=== PATIENT | female | born 1945 | race Caucasian/White ===

== ENCOUNTER 2016-09-29 13:37 | Emergency (ER) | payer MEDICARE, OTHER ==
[~2016-09-29] VITALS: Ht 157.5 cm; Wt 60.0 kg
[~2016-09-29 13:37] MED LIST: ADVA115A PO; ALBU1AER INH; AMIT100 PO; FURO20TA PO; LORA1TAB PO; PRIL40CA PO; ROFL1TAB2 PO; SERT-129 PO; SIMV40 PO; TIOT18I INH; TOPI100 PO; TRAZ50TA4 PO; ZOLP10TA3 PO
[2016-09-29 13:41] VITALS: BP 129/74; PULSE 86; RESP 17; TEMP 98.1; O2SAT 91
[2016-09-29] MEDS ORDERED: oxygen (14:42)
[2016-09-29] MEDS ORDERED: SERT-129 PO (14:42)
[2016-09-29] MEDS ORDERED: ZOLP1SPR PO (14:42)
[2016-09-29] MEDS ORDERED: POTA-243 PO (14:42)
[2016-09-29] MEDS ORDERED: ATOR40TA16 PO (14:42)
[2016-09-29] MEDS ORDERED: ALBUAER3 INH (14:42)
[2016-09-29] MEDS ORDERED: FE FCAP (14:42)
[2016-09-29] MEDS ORDERED: TOPA100T11 PO (14:42)
[2016-09-29] MEDS ORDERED: LORA1TAB12 PO (14:42)
[2016-09-29] MEDS ORDERED: TRAZ50TA12 PO (14:42)
[2016-09-29] MEDS ORDERED: TIOT1AER INH (14:42)
[2016-09-29] MEDS ORDERED: ROFL1TAB2 PO (14:42)
[2016-09-29] MEDS ORDERED: AMIT100T2 PO (14:42)
[2016-09-29] MEDS ORDERED: POTA4.25 PO (14:42)
[2016-09-29] MEDS ORDERED: ALBU.5I NEB (14:42)
[2016-09-29] MEDS ORDERED: LIDOCAINE 1%/EPINEPHrine 1:100,000 SOLN 20 ML VIAL INFIL ONE (14:45)
--- NOTE | 2016-09-29 15:26 | PD ---
HPI Chief Complaint: Fall Time Seen by Provider: 15:22 Travel History International Travel<30 days: No Contact w/Intl Traveler<30days: No Traveled to known affect area: No History of Present Illness HPI 71-year-old female that presents to the ED for evaluation of trip and fall. Patient had trip and fall at her home. Per patient she landed on Tylenol and did not lose consciousness. She does have a history of brain aneurysms but denies taking any blood thinners at this time. She does have a cut to the right forehead as well as to the knees bilaterally. Per patient she only hurts in her knees and her head. She denies any neck pain or back pain. No hip pain. She was able to ambulate to the fall. She states that she is up-to-date with her tetanus within the past 5 years. She denies any chest pain or shortness of breath. No abdominal pain. No nausea or vomiting. No blurry vision or double vision. Denies any weakness. Per patient her pain currently is 5 out of 10. PFSH Past Medical History Asthma: No Blood Disorders: No Anxiety: Yes Depression: Yes Heart Rhythm Problems: No Cancer: No Cardiovascular Problems: Yes (HTN) High Cholesterol: Yes Chemotherapy: No Chest Pain: No Congestive Heart Failure: No COPD: Yes Diabetes: No Endocrine: No Gastrointestinal Disorders: Yes (CURRENTLY ) GERD: Yes Genitourinary: No Hypertension: Yes Immune Disorder: No Implanted Vascular Access Dvce: No Musculoskeletal: Yes Neurologic: Yes (BRAIN ANEURYSM) Psychiatric: No Reproductive: No Respiratory: Yes (O2 3L) Radiation Therapy: No Sleep Apnea: Yes Thyroid Disease: No Tetanus Vaccination: < 5 Years Past Surgical History Abdominal Surgery: Yes (COLONOSCOPY ) Neurologic Surgery: Yes (ANEURYSM CLIP) Other Surgery: Yes (RIGHT BREAST LUMPECTOMY - BENIGN, BUNION ON BILAT FT) Social History Alcohol Use: Yes (SOCIALLY) Tobacco Use: Yes Substance Use: No Allergies-Medications (Allergen,Severity, Reaction): Coded Allergies: No Known Allergies (Unverified , 09/29/16) Reported Meds & Prescriptions Reported Meds & Active Scripts Active Reported Topamax (Topiramate) 100 Mg Tab 100 Mg PO BID Albuterol Neb (Albuterol Sulfate) 2.5 Mg/0.5 Ml Neb 2.5 Mg NEB ONCE Note: The Albuterol Sulfate Inhalation Solution is concentrated and must be diluted. Read complete instructions carefully before using. Daliresp (Roflumilast) 500 Mcg Tab 500 Mcg PO DAILY [oxygen] 3 Liter Stiolto Respimat Inh (Tiotropium-Olodaterol Inh) 2.5-2.5 Mcg/Act Aero 2 Puff INH DAILY Proair Hfa 8.5 GM Inh (Albuterol Sulfate) 90 Mcg/Act Aer 2 Puff INH Q4-6H PRN 108 mcg/actuation Zolpimist (Zolpidem Tartrate) 5 Mg/Act Spr 2.5 Mg PO Trazodone (Trazodone HCl) 50 Mg Tab 50 Mg PO HS Sertraline (Sertraline HCl) 100 Mg Tab 100 Mg PO BID Lorazepam 1 Mg Tab 1 Mg PO DAILY PRN Potassium Citrate ER 15 Meq Tab 10 Meq PO BID Klor-Con 10 (Potassium Chloride) 10 Meq Tab 10 Meq PO DAILY Integra (Multi-Vit/Iron-B Comp-Vit C) 62.5-62.5-40-3 mg Cap Atorvastatin (Atorvastatin Calcium) 40 Mg Tab 40 Mg PO HS Amitriptyline (Amitriptyline HCl) 100 Mg Tab 100 Mg PO HS Review of Systems Except as stated in HPI: all other systems reviewed are Neg Physical Exam Narrative GENERAL: SKIN: Warm and dry. HEAD: Atraumatic. Normocephalic. Patient has a superficial 2 cm laceration to the right forehead. Minimal bleeding. EYES: Pupils equal and round 4 mm reactive to light and accommodation. No scleral icterus. No injection or drainage. ENT: No nasal bleeding or discharge. Mucous membranes pink and moist. Tongue is midline. No uvula deviation. NECK: Trachea midline. No JVD. CARDIOVASCULAR: Regular rate and rhythm. No murmurs, S3, S4. RESPIRATORY: No accessory muscle use. Clear to auscultation. Breath sounds equal bilaterally. GASTROINTESTINAL: Abdomen soft, non-tender, nondistended. Hepatic and splenic margins not palpable. MUSCULOSKELETAL: Extremities without clubbing, cyanosis, or edema. No obvious deformities. Full range of motion of the upper and lower extremities bilaterally. Patient able to flex and extend both knees bilaterally. Patient does have a skin tear to the right knee as well as a very small abrasion to the left knee. No obvious deformity noted. Minimal swelling noted. Skin there is about 1 cm in diameter in the right knee. Patient has no lumbar, thoracic, cervical spine tenderness to palpation. No ankle or hip pain noted. Full range of motion of the upper extremities with no pain. 2+ pulses bilaterally. NEUROLOGICAL: Awake and alert. No obvious cranial nerve deficits. Motor grossly within normal limits. Five out of 5 muscle strength in the arms and legs. Normal speech. PSYCHIATRIC: Appropriate mood and affect; insight and judgment normal. Data Data Last Documented VS Vital Signs Date Time Temp Pulse Resp B/P Pulse Ox O2 Delivery O2 Flow Rate FiO2 09/29/16 16:18 80 18 130/70 97 Nasal Cannula 3 09/29/16 13:[address] Brain W/O Iv Contrast(Rout) (09/29/16 14:36) Ct Cerv Spine W/O Contrast (09/29/16 14:36) Ct Facial Bones W/O Iv Cont (09/29/16 14:36) Knee, Complete (4vws) (09/29/16 14:36) Ice/Cold Pack (09/29/16 14:36) Wound Care (09/29/16 14:36) Lidocai-Epi 1%-1:100,000 Inj (Xylocaine- (09/29/16 14:45) Knee, Complete (4vws) (09/29/16 ) MDM Medical Decision Making Medical Screen Exam Complete: Yes Emergency Medical Condition: Yes Medical Record Reviewed: Yes Interpretation(s) Last Impressions Maxillofacial CT 09/29/16 1436 Signed Impressions: Service Date/Time: Thursday, September 29, 2016 15:49 - CONCLUSION: Negative for fracture, evidence for previous aneurysm clipping on the right.. Matthew Basilio MD FACR Knee X-Ray 09/29/16 1436 Signed Impressions: Service Date/Time: Thursday, September 29, 2016 14:58 - CONCLUSION: Mild arthropathy without evidence of acute bony abnormality. Possible small joint effusion. Elver Parham MD Cervical Spine CT 09/29/16 1436 Signed Impressions: Service Date/Time: Thursday, September 29, 2016 15:49 - CONCLUSION: Degenerative changes with spinal stenosis worse at C6-C7. There is no fracture. Matthew Basilio MD FACR Knee X-Ray 09/29/16 0000 Signed Impressions: Service Date/Time: Thursday, September 29, 2016 14:54 - CONCLUSION: Total knee replacement. No evidence of acute process. Elver Parham MD CT head negative other than for aneurysm clippings Differential Diagnosis Head injury versus laceration versus fracture versus contusion versus skin tear Narrative Course 71-year-old female that presents to the ED for evaluation of head injury. Patient was properly examined and was found to have signs and symptoms consistent with appears to be head injury and laceration. imaging ordered. After explained procedure to the patient and she agreed to it laceration was repaired as stated in procedure note. Told to get sutures removed in 7 days. Wound care was endorsed. Imaging showed no sign of acute disease other than possible joint effusion on the right knee but otherwise unremarkable. This was discussed with the attending who agrees with plan. Patient was sent home with head injury precautions. Wound care was endorsed. Patient was given a walker to help ambulate as she will likely have some discomfort. Patient was given tramadol for pain. Told to take Tylenol as needed. See ED for worsening symptoms. Procedures Procedure Narrative LACERATION LOCATION: right forehead LENGTH: 2 cm NUMBER OF STITCHES/KALEIGH: 5 sutures REPAIR: The area of the laceration was prepped with Betadine and sterilely draped. The laceration was infiltrated with 1% Xylocaine. The wound was copiously irrigated and explored without evidence of foreign body, tendon injury or neurovascular injury. The wound was closed using 5-0 Prolene. This was a 1 layer repair. A sterile dressing was applied. The patient was advised to keep the dressing clean and dry. Patient tolerated the procedure well. Diagnosis Primary Impression: Head injury, acute Qualified Code: S09.90XA - Head injury, acute, initial encounter Additional Impression: Laceration Patient Instructions: General Instructions Additional Instructions: Tylenol for pain as needed. Apply ice to the areas of pain as needed. Wound care daily with soap and water. You can apply bandaid if needed. Neosporyn or OTC antibiotic ointment to area as needed twice a day for at least 2 weeks to help with scarring and prevent infection. Meoderma OTC for scarring if needed. Avoid sun exposure for 2 months as the sun could make scar darker and more noticeable. Get sutures removed in 5-7 days. See ED if worst. Med/Other Pt SpecificInfo: Prescription(s) given Disposition: 01 DISCHARGE HOME Condition: Stable Mark Whitfield Sep 29, 2016 15:26
--- NOTE | 2016-09-29 15:53 | RADRPT ---
EXAM DATE/TIME: 09/29/2016 14:54 [facility] COMPARISON: No previous studies available for comparison. INDICATIONS : Left knee pain after falling today. MEDICAL HISTORY : Hypertension. Chronic obstructive pulmonary disease. Smoker. SURGICAL HISTORY : Total knee replacement, left. ENCOUNTER: Initial ACUITY: 1 day PAIN SCORE: 2/10 LOCATION: Left entire knee. FINDINGS: 4 views of the left knee demonstrates a total joint replacement. Components appear to be well-seated and satisfactory line. Bony structures are intact. There is no significant soft tissue swelling. CONCLUSION: Total knee replacement. No evidence of acute process. Elver Parham MD on September 29, 2016 at 15:50 Board Certified Radiologist. This report was verified electronically.
--- NOTE | 2016-09-29 15:54 | RADRPT ---
EXAM DATE/TIME: 09/29/2016 14:58 [facility] COMPARISON: No previous studies available for comparison. INDICATIONS : Right knee pain after falling today. MEDICAL HISTORY : Hypertension. Chronic obstructive pulmonary disease. Smoker. SURGICAL HISTORY : None. ENCOUNTER: Initial ACUITY: 1 day PAIN SCORE: 7/10 LOCATION: Right entire knee. FINDINGS: Four view examination of the right knee demonstrates mild to moderate arthropathy involving the media l joint compartment and patellofemoral joint. There is no evidence of fracture or dislocation. Minimal increased density is seen in the suprapatellar bursa. CONCLUSION: Mild arthropathy without evidence of acute bony abnormality. Possible small joint effusion. Elver Parham MD on September 29, 2016 at 15:51 Board Certified Radiologist. This report was verified electronically.
--- NOTE | 2016-09-29 16:06 | RADRPT ---
EXAM DATE/TIME: 09/29/2016 15:49 [facility] COMPARISON: No previous studies available for comparison. INDICATIONS : Fall, laceration to head. RADIATION DOSE: 33.57 CTDIvol (mGy) MEDICAL HISTORY : Hypertension. Aneurysm, intracranial. SURGICAL HISTORY : Intracranial aneurysm repair. ENCOUNTER: Initial ACUITY: 1 day PAIN SCALE: 3/10 LOCATION: Cranial TECHNIQUE: Multiple contiguous axial images were obtained of the head. Using automated exposure control and adjustment of the mA and/or kV according to patient size, radiation dose was kept as low as reasonably achievable to obtain optimal diagnostic quality images. FINDINGS: The patient is status post aneurysm clipping on the right. There is no subarachno id hemorrhage. There is no evidence for infarction. There is no parenchymal hemorrhage. Posterior fossa shows minimal vascular calcifications. CONCLUSION: Evidence for previous aneurysm clipping on the right otherwise negative. Matthew Basilio MD FACR on September 29, 2016 at 16:02 Board Certified Radiologist. This report was verified electronically.
--- NOTE | 2016-09-29 16:08 | RADRPT ---
EXAM DATE/TIME: 09/29/2016 15:49 [facility] COMPARISON: No previous studies available for comparison. INDICATIONS : Fall, laceration to head. RADIATION DOSE: 17.57 CTDIvol (mGy) MEDICAL HISTORY : Hypertension. Aneurysm, intracranial. SURGICAL HISTORY : Intracranial aneurysm repair. ENCOUNTER: Initial ACUITY: 1 day PAIN SCALE: 3/10 LOCATION: neck TECHNIQUE: Volumetric scanning of the cervical spine was performed. Multiplanar reconstructions i n the sagittal, coronal and oblique axial planes were performed. Using automated exposure control a nd adjustment of the mA and/or kV according to patient size, radiation dose was kept as low as reason ably achievable to obtain optimal diagnostic quality images. FINDINGS: VERTEBRAE: Normal vertebral body height. ALIGNMENT: No evidence of subluxation. C2-C3: The bony spinal canal is normal in size. No evidence of disc bulge or herniation. The neura l foramina are bilaterally patent. C3-C4: The bony spinal canal is normal in size. No evidence of disc bulge or herniation. The neura l foramina are bilaterally patent. C4-C5: Mild uncinate ridging is present without spinal stenosis or fracture. C5-C6: Mild uncinate ridging is present minimal facet disease without neural foramina encroachment. C6-C7: Moderately uncinate ridging is present with moderate left-sided neuroforaminal encroachment an d spinal stenosis. C7-T1: The bony spinal canal is normal in size. No evidence of disc bulge or herniation. The neura l foramina are bilaterally patent. CONCLUSION: Degenerative changes with spinal stenosis worse at C6-C7. There is no fracture. Matthew Basilio MD FACR on September 29, 2016 at 16:03 Board Certified Radiologist. This report was verified electronically.
--- NOTE | 2016-09-29 16:11 | RADRPT ---
EXAM DATE/TIME: 09/29/2016 15:49 [facility] COMPARISON: No previous studies available for comparison. INDICATIONS : Fall, laceration to head. RADIATION DOSE: 60.90 CTDIvol (mGy) MEDICAL HISTORY : Hypertension. Aneurysm, intracranial. SURGICAL HISTORY : Intracranial aneurysm repair. ENCOUNTER: Initial ACUITY: 1 day PAIN SCORE: 2/10 LOCATION: facial TECHNIQUE: Volumetric scanning of the facial bones was performed. Using automated exposure control and adjustme nt of the mA and/or kV according to patient size, radiation dose was kept as low as reasonably achiev able to obtain optimal diagnostic quality images. FINDINGS: ORBITS: The orbital and infraorbital osseous structures are intact. The retroconal structures have a normal configuration. No radiopaque foreign bodies are seen. NASAL BONE: The nasal bone and maxillary spine are intact ZYGOMATIC ARCHES: Symmetric without evidence of fracture. SINUSES: The maxillary, ethmoid and frontal sinuses are intact. Minimal right maxillary sinus disease is evid ent. NASAL CAVITY: The nasal septum is intact and midline. The lacrimal ducts are intact. SOFT TISSUES: No radiopaque foreign bodies seen. No soft-tissue swelling is seen. INTRACRANIAL: No intracranial air seen. CRIBIFORM PLATE: Grossly intact. CONCLUSION: Negative for fracture, evidence for previous aneurysm clipping on the right.. Matthew Basilio MD FACR on September 29, 2016 at 16:07 Board Certified Radiologist. This report was verified electronically.
[2016-09-29 16:18] VITALS: BP 130/70; PULSE 80; RESP 18; O2SAT 97
[2016-09-29] MEDS ORDERED: TRAM50TA PO (16:26)
[2016-09-29] MEDS ORDERED: WALKER WHEELS/F1 MIS ×2 (16:26→16:28)
== END 2016-09-29 17:04 | disposition home or self-care (01) ==
LOC: NEPC 13:37
DX: S01.81XA Laceration without foreign body of other part of head, initial encounter (principal); W01.0XXA Fall on same level from slipping, tripping and stumbling without subsequent striking against object, initial encounter; Y92.009 Unspecified place in unspecified non-institutional (private) residence as the place of occurrence of the external cause; Y99.8 Other external cause status; I10 Essential (primary) hypertension; E78.00 Pure hypercholesterolemia, unspecified; J44.9 Chronic obstructive pulmonary disease, unspecified; K21.9 Gastro-esophageal reflux disease without esophagitis; G47.30 Sleep apnea, unspecified; Z72.0 Tobacco use
CPT/HCPCS: 12011; 70450; 70486; 72125; 73564

== ENCOUNTER 2016-10-10 15:09 | Emergency (ER) | payer MEDICARE, OTHER ==
[~2016-10-10] VITALS: Ht 160 cm; Wt 61.5 kg
[~2016-10-10 15:09] MED LIST changes: -ADVA115A PO; +ALBU.5I NEB; -ALBU1AER INH; +ALBUAER3 INH; -AMIT100 PO; +AMIT100T2 PO; +ATOR40TA16 PO; +FE FCAP; -FURO20TA PO; -LORA1TAB PO; +LORA1TAB12 PO; +POTA-243 PO; +POTA4.25 PO; -PRIL40CA PO; -SIMV40 PO; -TIOT18I INH; +TIOT1AER INH; +TOPA100T11 PO; -TOPI100 PO; +TRAM50TA PO; +TRAZ50TA12 PO; -TRAZ50TA4 PO; +WALKER WHEELS/F1 MIS; -ZOLP10TA3 PO; +ZOLP1SPR PO; +oxygen
[2016-10-10 15:11] VITALS: BP 126/73; PULSE 83; RESP 12; TEMP 97.9; O2SAT 90
--- NOTE | 2016-10-10 15:57 | PD ---
HPI Chief Complaint: Wound/Suture/Staple Re-Check Time Seen by Provider: 15:54 Travel History International Travel<30 days: No Contact w/Intl Traveler<30days: No Traveled to known affect area: No History of Present Illness HPI Patient is a 71-year-old female who presents to the emergency department for stitches removal. Patient has no other complaints at this time. PFSH Past Medical History Asthma: No Blood Disorders: No Anxiety: Yes Depression: Yes Heart Rhythm Problems: No Cancer: No Cardiovascular Problems: Yes (HTN) High Cholesterol: Yes Chemotherapy: No Chest Pain: No Congestive Heart Failure: No COPD: Yes Diabetes: No Endocrine: No Gastrointestinal Disorders: Yes (CURRENTLY ) GERD: Yes Genitourinary: No Hypertension: Yes Immune Disorder: No Implanted Vascular Access Dvce: No Musculoskeletal: Yes Neurologic: Yes (BRAIN ANEURYSM) Psychiatric: No Reproductive: No Respiratory: Yes (O2 3L) Radiation Therapy: No Sleep Apnea: Yes Thyroid Disease: No Past Surgical History Abdominal Surgery: Yes (COLONOSCOPY ) Neurologic Surgery: Yes (ANEURYSM CLIP) Other Surgery: Yes (RIGHT BREAST LUMPECTOMY - BENIGN, BUNION ON BILAT FT) Social History Alcohol Use: Yes (SOCIALLY) Tobacco Use: Yes Substance Use: No Allergies-Medications (Allergen,Severity, Reaction): Coded Allergies: No Known Allergies (Unverified , 10/10/16) Reported Meds & Prescriptions Reported Meds & Active Scripts Active Walker with Front Wheels (Device) 1 Mis Mis 1 Ea .ROUTE DIRECTED Tramadol (Tramadol HCl) 50 Mg Tab 50 Mg PO Q6H PRN Reported Topamax (Topiramate) 100 Mg Tab 100 Mg PO BID Albuterol Neb (Albuterol Sulfate) 2.5 Mg/0.5 Ml Neb 2.5 Mg NEB ONCE Note: The Albuterol Sulfate Inhalation Solution is concentrated and must be diluted. Read complete instructions carefully before using. Daliresp (Roflumilast) 500 Mcg Tab 500 Mcg PO DAILY [oxygen] 3 Liter Stiolto Respimat Inh (Tiotropium-Olodaterol Inh) 2.5-2.5 Mcg/Act Aero 2 Puff INH DAILY Proair Hfa 8.5 GM Inh (Albuterol Sulfate) 90 Mcg/Act Aer 2 Puff INH Q4-6H PRN 108 mcg/actuation Zolpimist (Zolpidem Tartrate) 5 Mg/Act Spr 2.5 Mg PO Trazodone (Trazodone HCl) 50 Mg Tab 50 Mg PO HS Sertraline (Sertraline HCl) 100 Mg Tab 100 Mg PO BID Lorazepam 1 Mg Tab 1 Mg PO DAILY PRN Potassium Citrate ER 15 Meq Tab 10 Meq PO BID Klor-Con 10 (Potassium Chloride) 10 Meq Tab 10 Meq PO DAILY Integra (Multi-Vit/Iron-B Comp-Vit C) 62.5-62.5-40-3 mg Cap Atorvastatin (Atorvastatin Calcium) 40 Mg Tab 40 Mg PO HS Amitriptyline (Amitriptyline HCl) 100 Mg Tab 100 Mg PO HS Review of Systems Except as stated in HPI: all other systems reviewed are Neg Physical Exam Narrative GENERAL: This is a well-nourished, well-developed patient, in no apparent distress. SKIN: No rashes, ecchymoses or lesions. Cool and dry. 5 intact sutures noted to the right forehead. No erythema, induration or exudates noted. Stitches are well approximated with no sign or symptoms of infection. Data Data Last Documented VS Vital Signs Date Time Temp Pulse Resp B/P Pulse Ox O2 Delivery O2 Flow Rate FiO2 10/10/16 15:11 97.9 83 12 126/73 90 Room Air [facility] Medical Decision Making Medical Screen Exam Complete: Yes Emergency Medical Condition: Yes Interpretation(s) Vital Signs Date Time Temp Pulse Resp B/P Pulse Ox O2 Delivery O2 Flow Rate FiO2 10/10/16 15:11 97.9 83 12 126/73 90 Room Air Differential Diagnosis Cellulitis versus abscess versus wound infection versus normal healing versus other Narrative Course Patient is a 71-year-old female who presented to emergency department to have stitches removed. Stitches are placed on 09/29/16. Patient has no complaints at this time. There is no sign or symptoms of infection present. 5 intact sutures were removed from patient's forehead. Patient tolerated well. Patient was advised that she can wash her face with soap and water as she normally would. Patient verbalized understanding of instructions. Patient stable for discharge. Diagnosis Primary Impression: Encounter for removal of sutures Referrals: Primary Care Physician Patient Instructions: General Instructions Additional Instructions: Follow-up with your doctor Return to emergency department for any new or worsening symptoms Med/Other Pt SpecificInfo: No Change to Meds Disposition: 01 DISCHARGE HOME Condition: Stable Genevieve Guzman Oct 10, 2016 15:57
== END 2016-10-10 16:15 | disposition home or self-care (01) ==
LOC: NEPB 15:09
DX: Z48.02 Encounter for removal of sutures (principal)
CPT/HCPCS: 99281

== ENCOUNTER 2017-06-23 14:06 | Inpatient (IN) | payer MEDICARE, OTHER ==
[~2017-06-23] VITALS: Ht 162.6 cm; Wt 59.7 kg
[2017-06-23] VITALS (8 sets, daily range): BP systolic 130–143; BP diastolic 65–76; PULSE 85–100; RESP 18–20; TEMP 98.1–100.2; O2SAT 93–97
[2017-06-23] MEDS ORDERED: SODIUM CHLOR 0.9% 1000 ML INJ 1,000 ML IV ONE ×2 (14:10→18:30)
[2017-06-23] MEDS ORDERED: SODIUM CHLOR 0.9% 1000 ML INJ 800 ML IV ONE (14:10)
[2017-06-23 14:35] LABS: AUTOMATED NEUTROPHIL # 6.4 TH/MM3 (1.8-7.7); BASOPHIL % 0.3 % (0.0-2.0); EOSINOPHIL # 0.1 TH/MM3 (0-0.4); EOSINOPHIL % 1.8 % (0.0-4.0); HEMATOCRIT 42.4 % (35.0-46.0); HEMO FLAGS DIFF FINAL; LYMPH % 11.5 % (9.0-44.0); LYMPHOCYTE # 0.9 TH/MM3 (1.0-4.8); MEAN CELL VOLUME 91.3 FL (80.0-100.0); MEAN CORPUSCULAR HEMOGLOBIN 28.8 PG (27.0-34.0); MEAN CORPUSCULAR HGB CONC 31.6 % (32.0-36.0); MONO % 7.7 % (0.0-8.0); NEUT % 78.7 % (16.0-70.0); PLATELET COUNT 145 TH/MM3 (150-450); RED BLOOD COUNT 4.64 MIL/MM3 (4.00-5.30); RED CELL DISTRIBUTION WIDTH 14.6 % (11.6-17.2); WHITE BLOOD COUNT 8.2 TH/MM3 (4.0-11.0)
--- NOTE | 2017-06-23 14:39 | PD ---
HPI Chief Complaint: Altered Mental Status Time Seen by Provider: 14:10 Travel History International Travel<30 days: No Contact w/Intl Traveler<30days: No Traveled to known affect area: No History of Present Illness HPI This is a 72-year-old female with a history of COPD, hypertension, hyperlipidemia, depression, who presents from home with decreased mental status and reported fever. The patient is awake but confused. She states that she has not been drinking enough fluid. Paramedics report that over the last couple days, she's had decline in her mental status. Home home rehabilitation health nurse who presents today found her to have a temperature of 100.1. There 's been no reported cough or dysuria. The patient's lips are extremely dry. The patient knows the president and the day and her name. She did not know the year or where she was. PFSH Past Medical History Asthma: No Blood Disorders: No Anxiety: Yes Depression: Yes Heart Rhythm Problems: No Cancer: No Cardiovascular Problems: Yes (HTN) High Cholesterol: Yes Chemotherapy: No Chest Pain: No Congestive Heart Failure: No COPD: Yes Diabetes: No Diminished Hearing: No Endocrine: No Gastrointestinal Disorders: Yes (CURRENTLY ) GERD: Yes Genitourinary: No Hypertension: Yes Immune Disorder: No Implanted Vascular Access Dvce: No Musculoskeletal: Yes Neurologic: Yes (BRAIN ANEURYSM) Psychiatric: No Reproductive: No Respiratory: Yes (O2 3L) Radiation Therapy: No Sleep Apnea: Yes Thyroid Disease: No Tetanus Vaccination: > 5 Years Influenza Vaccination: No Past Surgical History Abdominal Surgery: Yes (COLONOSCOPY ) Neurologic Surgery: Yes (ANEURYSM CLIP) Other Surgery: Yes (RIGHT BREAST LUMPECTOMY - BENIGN, BUNION ON BILAT FT) Social History Alcohol Use: Yes (SOCIALLY) Tobacco Use: Yes Substance Use: No Allergies-Medications (Allergen,Severity, Reaction): Coded Allergies: No Known Allergies (Unverified , 06/23/17) Reported Meds & Prescriptions Reported Meds & Active Scripts Active Reported Wellbutrin Xl 24 HR (Bupropion HCl) 150 Mg Tab 150 Mg PO DAILY Zolpidem (Zolpidem Tartrate) 5 Mg Tab 5 Mg PO HS PRN Topamax (Topiramate) 100 Mg Tab 100 Mg PO BID Daliresp (Roflumilast) 500 Mcg Tab 500 Mcg PO DAILY Stiolto Respimat Inh (Tiotropium-Olodaterol Inh) 2.5-2.5 Mcg/Act Aero 2 Puff INH DAILY Proair Hfa 8.5 GM Inh (Albuterol Sulfate) 90 Mcg/Act Aer 2 Puff INH Q4-6H PRN 108 mcg/actuation Sertraline (Sertraline HCl) 100 Mg Tab 200 Mg PO DAILY Lorazepam 1 Mg Tab 0.5 Mg PO BID Atorvastatin (Atorvastatin Calcium) 40 Mg Tab 40 Mg PO HS Amitriptyline (Amitriptyline HCl) 100 Mg Tab 100 Mg PO HS Review of Systems Except as stated in HPI: all other systems reviewed are Neg General / Constitutional: Positive: Fever, No: Chills HENT: No: Headaches, Neck Pain Cardiovascular: No: Chest Pain or Discomfort, Palpitations Respiratory: Positive: Cough, Shortness of Breath Gastrointestinal: No: Nausea, Vomiting, Abdominal Pain Genitourinary: Positive: Decreased Urinary Output, No: Dysuria Musculoskeletal: Positive: Weakness, No: Pain Skin: No Rash, No Lesions Neurologic: Positive: Weakness, Change in Mentation, Slurred Speech, No: Focal Abnormalities, Headache, Incontinence Physical Exam Narrative GENERAL: Well-developed well-nourished female who appears lethargic and weak. SKIN: Focused skin assessment warm/dry. HEAD: Atraumatic. Normocephalic. EYES: No scleral icterus. No injection or drainage. ENT: No nasal bleeding or discharge. Mucous membranes dry and cracked. NECK: Trachea midline. No JVD. CARDIOVASCULAR: Regular rate and rhythm. No murmur appreciated. RESPIRATORY: No accessory muscle use. Bilateral expiratory wheezes. No Rales.. Breath sounds equal bilaterally. GASTROINTESTINAL: Abdomen soft, non-tender, nondistended. Hepatic and splenic margins not palpable. MUSCULOSKELETAL: No obvious deformities. No clubbing. No cyanosis. No edema. NEUROLOGICAL: Awake and confused. No obvious cranial nerve deficits. Motor grossly within normal limits. Slight slurred speech. Data Data Last Documented VS Vital Signs Date Time Temp Pulse Resp B/P (MAP) Pulse Ox O2 Delivery O2 Flow Rate FiO2 06/23/17 16:46 90 20 130/65 (86) 97 Nasal Cannula 3.00 06/23/17 14:20 100.2 Orders Orders Complete Blood Count With Diff (06/23/17 14:10) Comprehensive Metabolic Panel (06/23/17 14:10) Lactic Acid Sepsis Protocol (06/23/17 14:10) Ckmb (Isoenzyme) Profile (06/23/17 14:10) Troponin I (06/23/17 14:10) Urinalysis - C+S If Indicated (06/23/17 14:10) Blood Culture (06/23/17 14:10) Chest, Single Ap (06/23/17 14:10) Blood Glucose (06/23/17 14:10) Ecg Monitoring (06/23/17 14:10) Iv Access Insert/Monitor (06/23/17 14:10) Oximetry (06/23/17 14:10) Oxygen Administration (06/23/17 14:10) Ct Brain W/O Iv Contrast(Rout) (06/23/17 14:10) Sodium Chlor 0.9% 1000 Ml Inj (Ns 1000 M (06/23/17 14:10) Sodium Chlor 0.9% 1000 Ml Inj (Ns 1000 M (06/23/17 14:10) Arterial Blood Gas (Abg) (06/23/17 14:23) Influenzae A/B Antigen (06/23/17 14:40) Electrocardiogram (06/23/17 14:22) Admit To Inpatient (06/23/17 ) Code Status (06/23/17 16:15) Vital Signs (Adult) JUS.Q1H (06/23/17 16:15) Activity Bed Rest (06/23/17 16:15) Oliver Filter Operator / Telemetry JUS.Q8H (06/23/17 16:15) Intake + Output JUS.Q8H (06/23/17 16:15) Diet Npo (06/23/17 Dinner) Sodium Chlor 0.9% 1000 Ml Inj (Ns 1000 M (06/23/17 16:15) Sodium Chloride 0.9% Flush (Ns Flush) (06/23/17 16:15) Sodium Chloride 0.9% Flush (Ns Flush) (06/23/17 21:00) Albuterol-Ipratropium Neb (Duoneb Neb) (06/23/17 22:00) Albuterol-Ipratropium Neb (Duoneb Neb) (06/23/17 16:15) Chlorhexidine 0.12% Liq (Peridex 0.12% L (06/23/17 20:00) Pantoprazole Inj (Protonix Inj) (06/24/17 09:00) Complete Blood Count With Diff (06/24/17 06:00) Comprehensive Metabolic Panel (06/24/17 06:00) Arterial Blood Gas (Abg) (06/23/17 17:00) Consult Cm-Day 5 Ltac Eval (06/23/17 ) Enoxaparin Inj (Lovenox Inj) (06/23/17 17:00) Scd Bilateral/Knee High JUS.BID (06/23/17 16:15) Lane Bilateral/Knee High JUS.QSHIFT (06/23/17 17:00) ^ Initiate Protocol (06/23/17 16:15) Instruction (06/23/17 16:15) Misc Nursing Information (06/23/17 16:15) Chlorhexidine 2% Cloth (Chlorhexidine 2% (06/24/17 04:00) Chlorhexidine 2% Cloth (Chlorhexidine 2% (06/23/17 16:15) Mrsa Pcr Surveillance (06/23/17 16:15) Inpatient Certification (06/23/17 ) Methylprednisolone So Succ Inj (Solumedr (06/23/17 17:00) Cefepime Inj (Maxipime Inj) (06/23/17 17:00) Albuterol-Ipratropium Neb (Duoneb Neb) (06/23/17 20:00) Admit Order (Ed Use Only) (06/23/17 16:46) Labs Laboratory Tests Test 06/23/17 14:15 06/23/17 14:20 06/23/17 14:34 06/23/17 14:35 White Blood Count 8.2 TH/MM3 Red Blood Count 4.64 MIL/MM3 Hemoglobin 13.4 GM/DL Hematocrit 42.4 % Mean Corpuscular Volume 91.3 FL Mean Corpuscular Hemoglobin 28.8 PG Mean Corpuscular Hemoglobin Concent 31.6 % Red Cell Distribution Width 14.6 % Platelet Count 145 TH/MM3 Mean Platelet Volume 9.0 FL Neutrophils (%) (Auto) 78.7 % Lymphocytes (%) (Auto) 11.5 % Monocytes (%) (Auto) 7.7 % Eosinophils (%) (Auto) 1.8 % Basophils (%) (Auto) 0.3 % Neutrophils # (Auto) 6.4 TH/MM3 Lymphocytes # (Auto) 0.9 TH/MM3 Monocytes # (Auto) 0.6 TH/MM3 Eosinophils # (Auto) 0.1 TH/MM3 Basophils # (Auto) 0.0 TH/MM3 CBC Comment DIFF FINAL Differential Comment Blood Urea Nitrogen 12 MG/DL Creatinine 0.62 MG/DL Random Glucose 103 MG/DL Total Protein 7.1 GM/DL Albumin 3.2 GM/DL Calcium Level 8.7 MG/DL Alkaline Phosphatase 114 U/L Aspartate Amino Transf (AST/SGOT) 16 U/L Alanine Aminotransferase (ALT/SGPT) 11 U/L Total Bilirubin 0.5 MG/DL Sodium Level 139 MEQ/L Potassium Level 4.1 MEQ/L Chloride Level 103 MEQ/L Carbon Dioxide Level 32.0 MEQ/L Anion Gap 4 MEQ/L Estimat Glomerular Filtration Rate 95 ML/MIN Total Creatine Kinase 76 U/L Troponin I LESS THAN 0.02 NG/ML Lactic Acid Level 0.5 mmol/L Blood Gas Puncture Site LT RADIAL Blood Gas Patient Temperature 98.6 Blood Gas HCO3 30 mmol/L Blood Gas Base Excess 3.4 mmol/L Blood Gas Oxygen Saturation 93 % Arterial Blood pH 7.24 Arterial Blood Partial Pressure CO2 73 mmHg Arterial Blood Partial Pressure O2 88 mmHG Arterial Blood Oxygen Content 15.6 Vol % Arterial Blood Carboxyhemoglobin 2.6 % Arterial Blood Methemoglobin 0.8 % Blood Gas Hemoglobin 11.9 G/DL Oxygen Delivery Device NASAL CANNULA Blood Gas Liter Flow 3 L/M Urine Color YELLOW Urine Turbidity CLEAR Urine pH 7.0 Urine Specific [place] 1.016 Urine Protein TRACE mg/dL Urine Glucose (UA) NEG mg/dL Urine Ketones NEG mg/dL Urine Occult Blood NEG Urine Nitrite NEG Urine Bilirubin NEG Urine Urobilinogen LESS THAN 2.0 MG/DL Urine Leukocyte Esterase NEG Urine WBC 1 /hpf Urine Hyaline Casts 2 /lpf Urine Mucus MANY /lpf Microscopic Urinalysis Comment CATH-CULT NOT IND MDM Medical Decision Making Medical Screen Exam Complete: Yes Emergency Medical Condition: Yes Differential Diagnosis Sepsis versus dehydration versus metabolic derangement versus CVA Narrative Course This is a 72-year-old female with history of COPD, depression, who presents today with complaints of altered mental status and shortness of breath. The patient had diffuse expiratory area and the patient had a reported low-grade temperature of 100.1. The patient has a leg gases shows a pH of 7.2 with a PCO2 of 73 and a PO2 of 88. At this point I do not think the patient can tolerate BiPAP. He is been given Solu-Medrol prior to arrival by EMS. Should be given 2 nebulizer treatments and 1 here as well. She also appears to be very dry on exam. She's been given 2 L of I V fluids. I discussed the case with Dr. Hong, registered respiratory technician, who agrees she is a candidate for the intensive care service. He's been gracious to come down and see the patient and will admit her. Critical Care Narrative Aggregate critical care time was 35 minutes. Time to perform other separately billable procedures was not included in the critical care time. My time did not include minutes spent treating any other patients simultaneously or on activities that did not directly contribute to the patient's treatment. The services I provided to this patient were to treat and/or prevent clinically significant deterioration that could result in: I provided critical care services requiring my management, as noted below: Chart data review, documentation time, medication orders and management, vital sign assessments/reviewing monitor data, ordering and reviewing lab tests, ordering and interpreting/reviewing x-rays and diagnostic studies, care of the patient and discussion of the patient with the admitting physicians. Diagnosis Primary Impression: Respiratory distress Additional Impressions: Hypercarbia History of COPD Admitting Information Admitting Physician Requests: Admit Jin Gray MD Jun 23, 2017 14:39
[2017-06-23 14:46] LABS: BLOOD GAS BASE EXCESS 3.4 mmol/L (-2-2); BLOOD GAS CARBOXYHEMOGLOBIN 2.6 % (0-4); BLOOD GAS HCO3 30 mmol/L (22-26); BLOOD GAS METHEMOGLOBIN 0.8 % (0-2); BLOOD GAS O2 HGB SATURATION 93 % (90-100); BLOOD GAS OXYGEN CONTENT 15.6 Vol % (12.0-20.0); BLOOD GAS PCO2 73 mmHg (38-42); BLOOD GAS PO2 88 mmHG (61-120); BLOOD GAS TOTAL HGB 11.9 G/DL (12.0-16.0); CRITICAL VALUE YES; DRAW SITE LT RADIAL; LITER FLOW 3 L/M; NUMBER OF ARTERIAL PUNCTURES 1; OXYGEN DEVICE NASAL CANNULA; STAT YES; TEMP CORR TO 98.6; ULNAR PULSE PRESENT
[2017-06-23] MEDS ORDERED: ZOLP5TAB3 PO (14:53)
[2017-06-23] MEDS ORDERED: BUPR150XL PO (14:53)
[2017-06-23 14:57] LABS: ALT (GPT) 11 U/L (10-53); ANION GAP 4 MEQ/L (5-15); AST (GOT) 16 U/L (15-37); BLOOD UREA NITROGEN 12 MG/DL (7-18); CHLORIDE 103 MEQ/L (98-107); GLOMERULAR FILTRATION RATE 95 ML/MIN (>89); POTASSIUM 4.1 MEQ/L (3.5-5.1); SODIUM (NA) 139 MEQ/L (136-145)
[2017-06-23 15:01] LABS: ALKALINE PHOSPHATASE 114 U/L (45-117); TOTAL BILIRUBIN ADULT 0.5 MG/DL (0.2-1.0)
[2017-06-23 15:01] LABS: BLOOD, URINE NEG (NEG); GLUCOSE,URINE NEG (NEG); HYALINE CAST, URINE 2 /lpf (RARE); KETONE, URINE NEG (NEG); MUCUS URINE MANY /lpf (OCC); NITRITE,URINE NEG (NEG); URINE COLOR YELLOW (YELLW/STRAW)
[2017-06-23 15:02] LABS: COMMENT (UR) CATH-CULT NOT IND; CULTURE IF INDICATED CATH CULTURE NOT IND
--- NOTE | 2017-06-23 15:02 | RADRPT ---
EXAM DATE/TIME: 06/23/2017 14:33 [facility] COMPARISON: No previous studies available for comparison. INDICATIONS : Shortness of breath. MEDICAL HISTORY : Hypertension. Aneurysm, intracranial. SURGICAL HISTORY : Intracranial aneurysm repair. ENCOUNTER: Initial ACUITY: 1 day PAIN SCORE: Non-responsive. LOCATION: Bilateral chest FINDINGS: The cardiac silhouette is enlarged in transverse diameter. The lungs are free of acute parenchymal op acity. No effusions are identified. The background interstitium is prominent though this is likely ch ronic in nature. Calcified granuloma is present in the right lung. There is prominence of the aortic knob is with calcification characteristic of atherosclerotic vascular disease. CONCLUSION: 1. Cardiomegaly. No acute pulmonary disease. Panda Wilson MD on June 23, 2017 at 14:57 Board Certified Radiologist. This report was verified electronically.
[2017-06-23 15:04] LABS: CREATINE KINASE 76 U/L (26-192)
--- NOTE | 2017-06-23 15:41 | RADRPT ---
EXAM DATE/TIME: 06/23/2017 15:01 [facility] COMPARISON: CT BRAIN W/O CONTRAST, September 29, 2016, 15:49. INDICATIONS : Altered mental status. RADIATION DOSE: 56.35 CTDIvol (mGy) MEDICAL HISTORY : Cardiovascular disease. Hypertension. SURGICAL HISTORY : None. ENCOUNTER: Initial ACUITY: 1 day PAIN SCALE: Non-responsive LOCATION: cranial TECHNIQUE: Multiple contiguous axial images were obtained of the head. Using automated exposure control and adj ustment of the mA and/or kV according to patient size, radiation dose was kept as low as reasonably a chievable to obtain optimal diagnostic quality images. DICOM format image data is available electro nically for review and comparison. FINDINGS: There is no evidence of acute cortical infarction, acute hemorrhage, mass effect or midline shift. Bi frontal atrophy is present. Posterior fossa structures are unremarkable. There is benign-appearing mu cosal disease in the right maxillary sinus. There is right temporal craniotomy with aneurysm clip in the right side of the suprasellar cistern. T here is encephalomalacia involving the right frontal lobe. CONCLUSION: No evidence of acute intracranial pathology. No masses are identified. Bifrontal atrophy. Previous an eurysm clipping Panda Wilson MD on June 23, 2017 at 15:37 Board Certified Radiologist. This report was verified electronically.
[2017-06-23] MEDS ORDERED: RESP: ALBUTEROL 2.5 MG/IPRATROPIUM 0.5 MG NEB (PRN) INH (16:15)
[2017-06-23] MEDS ORDERED: SODIUM CHLORIDE 0.9% FLUSH 10 ML FLUSH IV FLUSH PRN (16:15)
[2017-06-23] MEDS ORDERED: MISCELLANEOUS NURSING INFORMATION XX SCH (16:15)
[2017-06-23] MEDS ORDERED: CHLORHEXIDINE GLUCONATE 2 % 1 PACK (2 CLOTHS) TOP PRN (16:15)
--- NOTE | 2017-06-23 16:18 | EKG ---
Date Performed: 06/23/2017 Time Performed: 14:22:56 PTAGE: 72 years EKG: Baseline artifact present Sinus rhythm NONSPECIFIC T-WAVE ABNORMALITY BORDERLINE ECG INTERPRETATION BASED ON A DEFAULT AGE OF 40 YEARS No s ignificant change from prior electrocardiogram. PREVIOUS TRACING : 11/03/2015 13.21 DOCTOR: Perez Valencia Interpretating Date/Time 06/23/2017 16:17:28
--- NOTE | 2017-06-23 17:17 | HHI.HP ---
[facility] Service Critical Care Medicine Primary Care Physician Nora Calvillo D.O. Admission Diagnosis COPD exacerbation, hypercarbia, low grade fever,altered mental statu Diagnosis: (1) COPD exacerbation Diagnosis: Principal (2) Hypercapnic respiratory failure Diagnosis: Principal (3) CO2 narcosis Diagnosis: Principal (4) Fever Diagnosis: Principal (5) Dehydration Diagnosis: Principal Chief Complaint: Altered mental status COPD exacerbation Travel History International Travel<30 Days: No Contact w/Intl Traveler <30 Da: No Traveled to Known Affected Are: No History of Present Illness This is a 72-year-old female with a history of COPD, hypertension, hyperlipidemia, history of aneurysm clipping, anxiety and depression, who was brought in by her for altered mentation, reduced by mouth intake, and and low grade fever. Decline in her mental status over last couple days, also fell from her bed yesterday. Home health nurse found her to have a temperature of 100.1. ER workup showed a negative chest x-ray white count was normal. ABG showed a pH of 7.24 and PCO2 73. With altered mental status and probable COPD exacerbation ICU admission was requested. UA was negative, urine cultures have been sent, influenza A and B sent. I evaluated the patient in the ED. She has received 2 L IV fluid boluses, still appears dehydrated. She is somnolent and lethargic and weak. But wakes up and is oriented x3. Chest exam reveals diffuse wheezing. I have placed patient on IV Solu-Medrol, DuoNeb inhalers, and empiric cefepime 2 g IV every 8 hours.. Review of Systems ROS Limitations: Altered Mental Status Past Family Social History Allergies: Coded Allergies: No Known Allergies (Unverified , 06/23/17) Past Medical History COPD Anxiety/depression Past Surgical History Brain Aneurysm with clip placement Left knee total arthroplasty Right breast lumpectomy Reported Medications Wellbutrin Xl 24 HR (Bupropion HCl) 150 Mg Tab 150 Mg PO DAILY Zolpidem (Zolpidem Tartrate) 5 Mg Tab 5 Mg PO HS PRN Topamax (Topiramate) 100 Mg Tab 100 Mg PO BID Daliresp (Roflumilast) 500 Mcg Tab 500 Mcg PO DAILY Stiolto Respimat Inh (Tiotropium-Olodaterol Inh) 2.5-2.5 Mcg/Act Aero 2 Puff INH DAILY Proair Hfa 8.5 GM Inh (Albuterol Sulfate) 90 Mcg/Act Aer 2 Puff INH Q4-6H PRN Sertraline (Sertraline HCl) 100 Mg Tab 200 Mg PO DAILY Lorazepam 1 Mg Tab 0.5 Mg PO BID Atorvastatin (Atorvastatin Calcium) 40 Mg Tab 40 Mg PO HS Amitriptyline (Amitriptyline HCl) 100 Mg Tab 100 Mg PO HS Active Ordered Medications Reviewed Family History Father of cardiac disease in his 50s Mother of CVA 90s Social History Continues to smoke cigarettes per day Drinks 2-3 shots of vodka daily Physical Exam Vital Signs Vital Signs Date Time Temp Pulse Resp B/P (MAP) Pulse Ox O2 Delivery O2 Flow Rate FiO2 06/23/17 16:46 90 20 130/65 (86) 97 Nasal Cannula 3.00 06/23/17 14:20 100.2 100 20 134/76 (95) 97 Room Air 06/23/17 14:18 97 Nasal Cannula 2.00 06/23/17 14:15 100.2 100 20 134/76 (95) 97 Physical Exam GENERAL: Well-developed well-nourished female who is lethargic and somnolent, dehydrated SKIN: Warm/dry. HEAD: Atraumatic. Normocephalic. EYES: No scleral icterus. Positive conjunctival injection/conjunctivitis ENT: Mucous membranes dry and cracked. NECK: Trachea midline. No JVD. CARDIOVASCULAR: Regular rate and rhythm. No murmur appreciated. RESPIRATORY: No accessory muscle use. Bilateral expiratory wheezes. GASTROINTESTINAL: Abdomen soft, non-tender, nondistended. Hepatic and splenic margins not palpable. MUSCULOSKELETAL: No obvious deformities. No clubbing. No cyanosis. No edema. NEUROLOGICAL: Patient is very somnolent but wakes up to stimulation. She is oriented to person place and time and she is awake. No focal deficits appears very weak and lethargic Laboratory Laboratory Tests Test 06/23/17 14:15 06/23/17 14:20 06/23/17 14:34 06/23/17 14:35 White Blood Count 8.2 Red Blood Count 4.64 Hemoglobin 13.4 Hematocrit 42.4 Mean Corpuscular Volume 91.3 Mean Corpuscular Hemoglobin 28.8 Mean Corpuscular Hemoglobin Concent 31.6 Red Cell Distribution Width 14.6 Platelet Count 145 Mean Platelet Volume 9.0 Neutrophils (%) (Auto) 78.7 Lymphocytes (%) (Auto) 11.5 Monocytes (%) (Auto) 7.7 Eosinophils (%) (Auto) 1.8 Basophils (%) (Auto) 0.3 Neutrophils # (Auto) 6.4 Lymphocytes # (Auto) 0.9 Monocytes # (Auto) 0.6 Eosinophils # (Auto) 0.1 Basophils # (Auto) 0.0 CBC Comment DIFF FINAL Differential Comment Blood Urea Nitrogen 12 Creatinine 0.62 Random Glucose 103 Total Protein 7.1 Albumin 3.2 Calcium Level 8.7 Alkaline Phosphatase 114 Aspartate Amino Transf (AST/SGOT) 16 Alanine Aminotransferase (ALT/SGPT) 11 Total Bilirubin 0.5 Sodium Level 139 Potassium Level 4.1 Chloride Level 103 Carbon Dioxide Level 32.0 Anion Gap 4 Estimat Glomerular Filtration Rate 95 Total Creatine Kinase 76 Troponin I LESS THAN 0.02 Lactic Acid Level 0.5 Blood Gas Puncture Site LT RADIAL Blood Gas Patient Temperature 98.6 Blood Gas HCO3 30 Blood Gas Base Excess 3.4 Blood Gas Oxygen Saturation 93 Arterial Blood pH 7.24 Arterial Blood Partial Pressure CO2 73 Arterial Blood Partial Pressure O2 88 Arterial Blood Oxygen Content 15.6 Arterial Blood Carboxyhemoglobin 2.6 Arterial Blood Methemoglobin 0.8 Blood Gas Hemoglobin 11.9 Oxygen Delivery Device NASAL CANNULA Blood Gas Liter Flow 3 Urine Color YELLOW Urine Turbidity CLEAR Urine pH 7.0 Urine Specific [place] 1.016 Urine Protein TRACE Urine Glucose (UA) NEG Urine Ketones NEG Urine Occult Blood NEG Urine Nitrite NEG Urine Bilirubin NEG Urine Urobilinogen LESS THAN 2.0 Urine Leukocyte Esterase NEG Urine WBC 1 Urine Hyaline Casts 2 Urine Mucus MANY Microscopic Urinalysis Comment CATH-CULT NOT IND Date/Time Source Procedure Growth Status 06/23/17 14:20 Blood Peripheral Aerobic Blood Culture Pending Received 06/23/17 14:20 Blood Peripheral Anaerobic Blood Culture Pending Received Result Diagram: 06/23/17 1415 06/23/17 1415 Imaging Chest x-ray and CT of the head shows no acute findings Caprini VTE Risk Assessment Caprini VTE Risk Assessment: Mod/High Risk (score >= 2) Caprini Risk Assessment Model Point Value = 1 Point Value = 2 Point Value = 3 Point Value = 5 Age 41-60 Minor surgery BMI > 25 kg/m2 Swollen legs Varicose veins or History of unexplained or recurrent spontaneous Oral contraceptives or hormone replacement Sepsis (< 1 month) Serious lung disease, including pneumonia (< 1 month) Abnormal pulmonary function Acute myocardial infarction Congestive heart failure (< 1 month) History of inflammatory bowel disease Medical patient at bed rest Age 61-74 Arthroscopic surgery Major open surgery (> 45 min) Laparoscopic surgery (> 45 min) Malignancy Confined to bed (> 72 hours) Immobilizing plaster cast Central venous access Age >= 75 History of VTE Family history of VTE Factor V Leiden Prothrombin [id number] Lupus anticoagulant Anticardiolipin antibodies Elevated serum homocysteine Heparin-induced thrombocytopenia Other congenital or acquired thrombophilia Stroke (< 1 month) Elective arthroplasty Hip, pelvis, or leg fracture Acute spinal cord injury (< 1 month) Prophylaxis Regimen Total Risk Factor Score Risk Level Prophylaxis Regimen 0-1 Low Early ambulation 2 Moderate Order ONE of the following: *Sequential Compression Device (SCD) *Heparin 5000 units SQ BID 3-4 Higher Order ONE of the following medications: *Heparin 5000 units SQ TID *Enoxaparin/Lovenox 40 mg SQ daily (WT < 150 kg, CrCl > 30 mL/min) *Enoxaparin/Lovenox 30 mg SQ daily (WT < 150 kg, CrCl > 10-29 mL/min) *Enoxaparin/Lovenox 30 mg SQ BID (WT < 150 kg, CrCl > 30 mL/min) AND/OR *Sequential Compression Device (SCD) 5 or more Highest Order ONE of the following medications: *Heparin 5000 units SQ TID (Preferred with Epidurals) *Enoxaparin/Lovenox 40 mg SQ daily (WT < 150 kg, CrCl > 30 mL/min) *Enoxaparin/Lovenox 30 mg SQ daily (WT < 150 kg, CrCl > 10-29 mL/min) *Enoxaparin/Lovenox 30 mg SQ BID (WT < 150 kg, CrCl > 30 mL/min) AND *Sequential Compression Device (SCD) Assessment and Plan Assessment and Plan NEURO: Metabolic encephalopathy CO2 narcosis - Metastatic disease appears to be secondary to CO2 narcosis from COPD exacerbation and severe dehydration - Hold all sedating medications - Check a B12 and TSH level - Hold home medications of amitriptyline and sertraline and Wellbutrin lorazepam and Ambien - Continue Topamax RESP: Acute hypercapnic respiratory failure Acute COPD exacerbation Oxygen dependent COPD Continue smoking - Nasal cannula oxygen to keep saturation about 90% - Use BiPAP when necessary - DuoNeb every 6 hours scheduled and when necessary - IV Solu-Medrol 60 mg every 8 hours - Empiric cefepime, continue home COPD meds CV: Severe dehydration - Normal saline IV fluid 3L bolus and NS at 85 ml per hour, GI: - Nothing by mouth until mental status improves : - Monitor renal function closely. IV hydration is about ID: - Low grade fever, sepsis is possible - Follow-up on blood culture follow-up on influenza A and B - Empiric cefepime HEME: - Monitor CBC, CMP ENDO: - Electrolyte replacement per protocol PROPH: - Bilateral lower extremity SCDs. Lovenox, protonix LINES: - Utilize peripheral IVs, central line if needed Level III new consult TSH 0.291, will check T4 B12 273. Start B12 1000 mcg IM for 10 days and monthly Code Status Full Discussed Condition With Dr. Gray Problem Qualifiers (1) Fever: Qualified Codes: R50.9 - Fever, unspecified Dong Hong MD Jun 23, 2017 17:17
[2017-06-23] MEDS: ENOXAPARIN SODIUM 40 MG/0.4 ML SYRINGE SQ SCH (17:27)
[2017-06-23] MEDS: CEFEPIME INJ 2,000 MG in SODIUM CHLORIDE 0.9% INJ 100 ML IV SCH (17:27)
[2017-06-23] MEDS: methylPREDNISolone SOD SUCC 125 MG/2 ML VIAL IV PUSH SCH (17:27)
[2017-06-23] MEDS: SODIUM CHLOR 0.9% 1000 ML INJ 1,000 ML IV SCH (17:27)
[2017-06-23] MEDS: TOBRAMYCIN SULF 0.3% OPHT SOLN 5 ML BTL EACH EYE SCH (18:00)
[2017-06-23] MEDS ORDERED: MULTIVITAMIN INJ 10 ML, THIAMINE INJ 100 MG, FOLIC ACID INJ 1 MG in SODIUM CHLORID 0.9%... IV SCH (18:00)
[2017-06-23 18:48] LABS: BLOOD GAS BASE EXCESS -0.1 mmol/L (-2-2); BLOOD GAS CARBOXYHEMOGLOBIN 2.6 % (0-4); BLOOD GAS HCO3 27 mmol/L (22-26); BLOOD GAS METHEMOGLOBIN 1.2 % (0-2); BLOOD GAS O2 HGB SATURATION 90 % (90-100); BLOOD GAS OXYGEN CONTENT 15.4 Vol % (12.0-20.0); BLOOD GAS PCO2 65 mmHg (38-42); BLOOD GAS PO2 74 mmHg (61-120); BLOOD GAS TOTAL HGB 12.1 G/DL (12.0-16.0); TEMP CORR TO 98.6
[2017-06-23 18:49] LABS: CRITICAL VALUE YES; DRAW SITE LT RADIAL; LITER FLOW 3 L/M; NUMBER OF ARTERIAL PUNCTURES 1; OXYGEN DEVICE NASAL CANNULA; STAT NO; ULNAR PULSE PRESENT
[2017-06-23] MEDS: CHLORHEXIDINE 0.12% (ORAL KIT) 15 ML CUP MT SCH (20:00)
[2017-06-23] MEDS: RESP: ALBUTEROL 2.5 MG/IPRATROPIUM 0.5 MG NEB (SCH) NEB (20:41)
[2017-06-23] MEDS ORDERED: RESP: ALBUTEROL 2.5 MG/IPRATROPIUM 0.5 MG NEB (SCH) NEB (22:00)
[2017-06-23] MEDS: MULTIVITAMIN INJ 10 ML, THIAMINE INJ 100 MG, FOLIC ACID INJ 1 MG in SODIUM CHLORID 0.9%... IV SCH (22:21)
[2017-06-23] MEDS: ATORVASTATIN 40 MG TAB PO SCH (22:21)
[2017-06-23] MEDS: TOPIRAMATE 100 MG TAB PO SCH (22:21)
[2017-06-24] VITALS (16 sets, daily range): BP systolic 92–139; BP diastolic 53–88; PULSE 83–95; RESP 16–34; TEMP 98.1–100.4; O2SAT 89–97
[2017-06-24] MEDS: RESP: ALBUTEROL 2.5 MG/IPRATROPIUM 0.5 MG NEB (SCH) NEB ×6 (00:23→20:36)
[2017-06-24] MEDS ORDERED: CHLORHEXIDINE GLUCONATE 2 % 1 PACK (2 CLOTHS) TOP SCH (04:00)
[2017-06-24 06:49] LABS: AUTOMATED NEUTROPHIL # 3.3 TH/MM3 (1.8-7.7); BASOPHIL % 0.1 % (0.0-2.0); EOSINOPHIL % 0.1 % (0.0-4.0); HEMATOCRIT 35.7 % (35.0-46.0); HEMO FLAGS DIFF FINAL; LYMPH % 10.3 % (9.0-44.0); LYMPHOCYTE # 0.4 TH/MM3 (1.0-4.8); MEAN CORPUSCULAR HEMOGLOBIN 29.2 PG (27.0-34.0); MEAN CORPUSCULAR HGB CONC 32.1 % (32.0-36.0); MONO % 6.5 % (0.0-8.0); PLATELET COUNT 120 TH/MM3 (150-450); RED BLOOD COUNT 3.92 MIL/MM3 (4.00-5.30); RED CELL DISTRIBUTION WIDTH 14.3 % (11.6-17.2)
[2017-06-24 07:10] LABS: ALKALINE PHOSPHATASE 80 U/L (45-117); ALT (GPT) 14 U/L (10-53); ANION GAP 9 MEQ/L (5-15); AST (GOT) 13 U/L (15-37); BICARBONATE 27.5 MEQ/L (21.0-32.0); BLOOD UREA NITROGEN 10 MG/DL (7-18); CHLORIDE 106 MEQ/L (98-107); GLOMERULAR FILTRATION RATE 148 ML/MIN (>89); POTASSIUM 3.3 MEQ/L (3.5-5.1); SODIUM (NA) 142 MEQ/L (136-145); THYROXINE (T4) 3.7 MCG/DL (4.8-13.9); TOTAL BILIRUBIN ADULT 0.2 MG/DL (0.2-1.0)
[2017-06-24] MEDS: CHLORHEXIDINE 0.12% (ORAL KIT) 15 ML CUP MT SCH ×2 (08:00→20:00)
[2017-06-24] MEDS ORDERED: POTASSIUM CHLORIDE 10 MEQ CONTROLLED RELEASE TAB PO ONE (08:00)
--- NOTE | 2017-06-24 08:02 | HHI.PR ---
Subjective Remarks in no acute distress. on oxygen via N/C- 2.5 lit/min. has occasional cough. Tmax 100.2. Objective Vitals Vital Signs Date Time Temp Pulse Resp B/P (MAP) Pulse Ox O2 Delivery O2 Flow Rate FiO2 06/24/17 07:19 95 Nasal Cannula 2.00 06/24/17 06:00 84 06/24/17 04:16 97 Nasal Cannula 3.00 06/24/17 04:00 98.1 83 20 139/73 (95) 97 06/24/17 04:00 84 06/24/17 02:00 85 06/24/17 00:24 95 Nasal Cannula 3.00 06/24/17 00:00 98.8 89 22 92/53 (66) 92 06/24/17 00:00 85 06/23/17 22:00 85 06/23/17 20:44 93 Nasal Cannula 3.00 06/23/17 20:00 99.2 89 18 143/72 (95) 94 06/23/17 20:00 89 06/23/17 18:37 95 Nasal Cannula 3.00 06/23/17 18:29 06/23/17 17:27 98.1 90 18 139/68 (91) 94 Nasal Cannula 3.00 06/23/17 16:46 90 20 130/65 (86) 97 Nasal Cannula 3.00 06/23/17 14:20 100.2 100 20 134/76 (95) 97 Room Air 06/23/17 14:18 97 Nasal Cannula 2.00 06/23/17 14:15 100.2 100 20 134/76 (95) 97 I/O 06/23/17 06/23/17 06/23/17 06/24/17 06/24/17 06/24/17 07:00 15:00 23:00 07:00 15:00 23:00 Intake Total 2000 ml 1270 ml Output Total 950 ml Balance 2000 ml 320 ml Intake IV Total 2000 ml 1270 ml Output Urine Total 950 ml Result Diagram: 06/24/1752906/24/17 0530 Imaging Last Impressions Head CT 06/23/17 1410 Signed Impressions: Service Date/Time: Friday, June 23, 2017 15:01 - CONCLUSION: No evidence of acute intracranial pathology. No masses are identified. Bifrontal atrophy. Previous aneurysm clipping Panda Wilson MD Chest X-Ray 06/23/17 1410 Signed Impressions: Service Date/Time: Friday, June 23, 2017 14:33 - CONCLUSION: 1. Cardiomegaly. No acute pulmonary disease. Panda Wilson MD Objective Remarks GENERAL: This is a well-nourished, well-developed patient, in no apparent distress. CARDIOVASCULAR: Regular rate and regular rhythm without murmurs, gallops, or rubs. RESPIRATORY: diminished air entry bilaterally. GASTROINTESTINAL: Abdomen soft, non-tender, nondistended. Normal, active bowel sounds MUSCULOSKELETAL: Extremities without clubbing, cyanosis, or edema. NEURO: Alert & Oriented x4 to person, place, time, situation. Moves all ext x4 Medications and IVs Current Medications Sodium Chloride 1,000 ml @ 1,000 mls/hr Q1H ONCE IV Last administered on 06/23 14:30; Start 06/23/17 at 14:10; Stop 06/23/17 at 15:09; Status DC Sodium Chloride 800 ml @ 1,000 mls/hr Q48M ONCE IV Last administered on 14:30; Start 06/23/17 at 14:10; Stop 06/23/17 at 14:57; Status DC Sodium Chloride 1,000 ml @ 75 mls/hr [id number] IV Last administered on 17:27; Start 06/23/17 at 16:15 Sodium Chloride (NS Flush) 2 ml UNSCH PRN IV FLUSH FLUSH AFTER USING IV ACCESS ; Start 06/23/17 at 16:15 Sodium Chloride (NS Flush) 2 ml BID IV FLUSH ; Start 06/23/17 at 21:00 Albuterol/ Ipratropium (Duoneb Neb) 1 ampule Q6HR NEB NEB ; Start 06/23/17 at 22:00; Stop 06/23/17 at 22:00; Status DC Albuterol/ Ipratropium (Duoneb Neb) 1 ampule Q4HR NEB PRN INH SHORTNESS OF BREATH; Start 06/23/17 at 16:15 Chlorhexidine Gluconate (Peridex 0.12% Liq) 15 ml BID@08,20 MT ; Start at 20:00 Pantoprazole Sodium (Protonix Inj) 40 mg DAILY IV PUSH ; Start 06/24/17 at 09: 00 Enoxaparin Sodium (Lovenox Inj) 40 mg Q24H SQ Last administered on 06/23/17 17:27; Start 06/23/17 at 17:00 Miscellaneous Information 1 Q361D XX ; Start 06/23/17 at 16:15 Chlorhexidine Gluconate (Chlorhexidine 2% Cloth) 3 pack Taper DAILY@04 TOP ; Start 06/24/17 at 04:00; Stop 06/20/18 at 03:59 Chlorhexidine Gluconate (Chlorhexidine 2% Cloth) 3 pack UNSCH PRN TOP HYGIENIC CARE; Start 06/23/17 at 16:15 Methylprednisolone Sodium Succinate (SoluMEDROL INJ) 60 mg Q8H IV PUSH Last administered on 06/23/17 17:27; Start 06/23/17 at 17:00 Cefepime HCl 2000 mg/Sodium Chloride 100 ml @ 200 mls/hr Q8H IV Last administered on 06/23/17 17:27; Start 06/23/17 at 17:00 Albuterol/ Ipratropium (Duoneb Neb) 1 ampule Q4HR NEB NEB Last administered on 06/24/17 07:17; Start 06/23/17 at 20:00 Multivitamins 10 ml/Thiamine HCl 100 mg/Folic Acid 1 mg/Sodium Chloride 511.2 ml @ 125 mls/hr DAILY IV ; Start 06/23/17 at 18:00; Stop 06/23/17 at 20:15; Status DC [facility]ram[facility] S[facility] 1 drop Q6HR EACH EYE ; Start at 18:00 Atorvastatin Calcium (Lipitor) 40 mg HS PO Last administered on 06/23/17 22: 21; Start 06/23/17 at 21:00 Roflumilast (Daliresp) 500 mcg DAILY PO ; Start 06/24/17 at 09:00 Topiramate (Topamax) 100 mg BID PO Last administered on 06/23/17 22:21; Start 06/23/17 at 21:00 Patient Own Medication PT OWN MED: Tiotropium-Olodaterol... DAILY INH ; Start 06/24/17 at 09:00 Sodium Chloride 1,000 ml @ 999 mls/hr BOLUS ONCE IV ; Start 06/23/17 at 18:30 ; Stop 06/23/17 at 19:30; Status DC Multivitamins 10 ml/Thiamine HCl 100 mg/Folic Acid 1 mg/Sodium Chloride 511.2 ml @ 125 mls/hr DAILY IV Last administered on 06/23/17t 22:21; Start at 20:00 Influenza Virus Vaccine (Flu (Quadrivalent) Vaccine Inj) 0.5 ml ONCE ONCE IM ; Start 06/24/17 at 10:00; Stop 06/24/17 at 10:01 Cyanocobalamin (Vitamin B12 Inj) 1,000 mcg DAILY IM ; Start 06/24/17 at 09:00; Stop 07/03/17 at 08:59 A/P Problem List: (1) COPD exacerbation ICD Code: J44.1 - Chronic obstructive pulmonary disease with (acute) exacerbation (2) Hypercapnic respiratory failure ICD Code: J96.92 - Respiratory failure, unspecified with hypercapnia (3) CO2 narcosis ICD Code: R06.89 - Other abnormalities of breathing (4) Fever ICD Code: R50.9 - Fever, unspecified (5) Dehydration ICD Code: E86.0 - Dehydration Assessment and Plan A/P Metabolic encephalopathy CO2 narcosis - appears to be secondary to CO2 narcosis from COPD exacerbation and severe dehydration - Hold all sedating medications - Hold home medications of amitriptyline and sertraline and Wellbutrin lorazepam and Ambien - Continue Topamax Acute hypercapnic respiratory failure Acute COPD exacerbation Oxygen dependent COPD Continue smoking - Nasal cannula oxygen to keep saturation about 90% - Use BiPAP when necessary - DuoNeb every 6 hours scheduled and when necessary -continue IV Solu-Medrol - Empiric cefepime, continue home COPD meds- will deescalate the antibiotic regimen if blood cultures remain negative. -consult pulmonary. Severe dehydration - continue NS at 85 ml per hour. low TSH and T4; will recheck the levels in 3-4 weeks- f/u as outpatient. hypokalemia; will replace. - Bilateral lower extremity SCDs. Lovenox, protonix Problem Qualifiers (1) Fever: Qualified Codes: R50.9 - Fever, unspecified Eber Ervin MD Jun 24, 2017 08:02
[2017-06-24] MEDS: TOPIRAMATE 100 MG TAB PO SCH ×2 (08:59→21:33)
[2017-06-24] MEDS: ROFLUMILAST 500 MCG TAB PO SCH (08:59)
[2017-06-24] MEDS: CEFEPIME INJ 2,000 MG in SODIUM CHLORIDE 0.9% INJ 100 ML IV SCH ×3 (09:00→16:08)
[2017-06-24] MEDS: MULTIVITAMIN INJ 10 ML, THIAMINE INJ 100 MG, FOLIC ACID INJ 1 MG in SODIUM CHLORID 0.9%... IV SCH (09:00)
[2017-06-24] MEDS: TIOTROPIUM OLODATEROL INH SCH (09:00)
[2017-06-24] MEDS: CYANOCOBALAMIN 1000 MCG/ML VIAL IM SCH (09:00)
[2017-06-24] MEDS: methylPREDNISolone SOD SUCC 125 MG/2 ML VIAL IV PUSH SCH ×3 (09:01→16:07)
[2017-06-24] MEDS: PANTOPRAZOLE SODIUM 40 MG VIAL IV PUSH SCH (09:01)
[2017-06-24] MEDS: SODIUM CHLORIDE 0.9% FLUSH 10 ML FLUSH IV FLUSH SCH ×2 (09:02→21:00)
[2017-06-24] MEDS ORDERED: INFLUENZA VIRUS VACCINE (QUADRIVALENT) 0.5 ML SYR IM ONE (10:00)
[2017-06-24] MEDS: SODIUM CHLOR 0.9% 1000 ML INJ 1,000 ML IV SCH ×2 (10:42→18:55)
[2017-06-24] MEDS: TOBRAMYCIN SULF 0.3% OPHT SOLN 5 ML BTL EACH EYE SCH ×2 (11:47→16:07)
--- NOTE | 2017-06-24 15:32 | MB ---
cc: YAEL LOVE DATE OF CONSULTATION: 06/24/2017. REASON FOR CONSULTATION: COPD and respiratory failure. HISTORY OF PRESENT ILLNESS: This is a 72-year-old lady with a history of COPD with hypertension and hyperlipidemia who has had a previous history for cerebral aneurysm clipping. The patient has anxiety and depression and was brought in for altered mental status over the past two days. The patient also had a fall from her bed and was running a fever and thus was seen in the emergency room where a chest x-ray was done which showed no active pulmonary infiltrates. She had be placed on a BiPAP mask initially due to CO2 retention and a pH was 7.24. She is now better and on a nasal cannula at 3 liters and did receive some IV fluids for hydration and now on antibiotic therapy and Solu-Medrol. PAST MEDICAL HISTORY: The past medical history has included: 1. Recurrent exacerbation of bronchitis. 2. History of brain aneurysm clipping. 3. History of a left total knee arthroplasty. 4. Right breast lumpectomy. 5. She has had a longstanding history of COPD and emphysema. HABITS: The patient smoked half to one pack per day for over sixty years and drinks alcohol regularly. FAMILY HISTORY: The father of heart disease. The mother of a stroke. MEDICATION LIST: 1. Wellbutrin 150 milligrams daily. 2. Topamax 100 milligrams twice a day. 3. Daliresp 500 micrograms daily. 4. two puffs a day. 5. Sertraline 200 milligrams daily. 6. Atorvastatin 40 milligrams at bedtime. 7. Amitriptyline 100 milligrams at bedtime. 8. Lorazepam 1 milligram twice a day. REVIEW OF SYSTEMS: The patient is having no chest pain. She has a cough. She has wheezing. Denies any leg swelling or calf muscle pains. She has no abdominal pains, nausea or reflux and the other system review is negative. PHYSICAL EXAMINATION: GENERAL: This averagely built elderly lady who is laying flat and is in no acute distress. VITAL SIGNS: Blood pressure 140/70, pulse 88, respirations 20, temperature 99.8. HEAD, EYES, EARS, NOSE, THROAT: Head normocephalic. The pupils are reactive and equal. Tongue is moist. Throat was clear. Nasal mucosa injected. NECK: The neck is supple. No bruits. No venous distention. No lymphadenopathy. CHEST: Equal movements with distant breath sounds with expiratory wheezes bilaterally. Prolonged expirations. HEART: Heart sounds are regular. S1-S2. No murmur. ABDOMEN: Abdomen soft and protuberant. No masses. No organomegaly or tenderness. The bowel sounds are active. EXTREMITIES: No lesions. No edema. NEUROLOGIC: Reflexes are 1+ with no gross motor or sensory deficits. Cranial nerves are grossly intact. RECTAL: Rectal exam is deferred. IMPRESSION: 1. Acute on chronic respiratory failure. 2. COPD with emphysema and chronic bronchitis. 3. Altered mental status. 4. Nicotine dependency. 5. Hypertension. PLAN: 1. The patient will be maintained on O2 at 3 liters nebulized DuoNeb solution four times a day. 2. IV cefepime 2 grams twice a day. 3. We will get a follow up blood gas study in the a.m. as well as a chest x-ray. 4. The patient will be placed on Symbicort 160/12.5 two puffs twice a day. 5. Continue with IV fluids for hydration. 6. Pulmonary function tests will be done when she is clinically stable. Thank you Dr. Hong for this consultation. MD MAGALIE Machado/NAZARIO /3:08 PM /3:21 PM
[2017-06-24] MEDS: ENOXAPARIN SODIUM 40 MG/0.4 ML SYRINGE SQ SCH (16:07)
[2017-06-24] MEDS: BUDESONIDE-FORMOTEROL 160/4.5 MCG INHALER INH SCH (21:34)
[2017-06-24] MEDS: ATORVASTATIN 40 MG TAB PO SCH (21:34)
[2017-06-25] VITALS (17 sets, daily range): BP systolic 126–171; BP diastolic 69–89; PULSE 78–102; RESP 18–31; TEMP 97.5–98.4; O2SAT 91–97
[2017-06-25] MEDS: TOBRAMYCIN SULF 0.3% OPHT SOLN 5 ML BTL EACH EYE SCH
[2017-06-25] MEDS: RESP: ALBUTEROL 2.5 MG/IPRATROPIUM 0.5 MG NEB (SCH) NEB ×3 (00:45→08:57)
[2017-06-25] MEDS: methylPREDNISolone SOD SUCC 125 MG/2 ML VIAL IV PUSH SCH ×2 (01:00→11:25)
[2017-06-25] MEDS: CEFEPIME INJ 2,000 MG in SODIUM CHLORIDE 0.9% INJ 100 ML IV SCH ×2 (01:00→09:00)
--- NOTE | 2017-06-25 05:57 | RADRPT ---
EXAM DATE/TIME: 06/25/2017 04:21 [facility] COMPARISON: CHEST SINGLE AP, June 23, 2017, 14:33. INDICATIONS : Shortness of breath, possible pulmonary disease. MEDICAL HISTORY : Hypertension. Aneurysm, intracranial. SURGICAL HISTORY : Intracranial aneurysm repair ENCOUNTER: Subsequent ACUITY: 2 days PAIN SCORE: Non-responsive. LOCATION: Bilateral chest FINDINGS: The cardiac silhouette is enlarged in transverse diameter. There is prominence of the aortic knob is with calcification characteristic of atherosclerotic vascular disease. The lungs are free of acute pa renchymal opacity. No effusions are identified. Multiple calcified granulomas are present in the righ t lung. CONCLUSION: 1. Cardiomegaly. No acute pulmonary disease. Panda Wilson MD on June 25, 2017 at 5:55 Board Certified Radiologist. This report was verified electronically.
[2017-06-25 06:20] LABS: BLOOD GAS BASE EXCESS 2.4 mmol/L (-2-2); BLOOD GAS CARBOXYHEMOGLOBIN 1.6 % (0-4); BLOOD GAS HCO3 27 mmol/L (22-26); BLOOD GAS METHEMOGLOBIN 1.2 % (0-2); BLOOD GAS O2 HGB SATURATION 91 % (90-100); BLOOD GAS OXYGEN CONTENT 14.7 Vol % (12.0-20.0); BLOOD GAS PCO2 49 mmHg (38-42); BLOOD GAS PO2 65 mmHg (61-120); BLOOD GAS TOTAL HGB 11.5 G/DL (12.0-16.0); CRITICAL VALUE NO; DRAW SITE LT BRACHIAL; LITER FLOW 1.5 L/M; NUMBER OF ARTERIAL PUNCTURES 1; OXYGEN DEVICE NASAL CANNULA; STAT NO; TEMP CORR TO 98.6; ULNAR PULSE PRESENT
--- NOTE | 2017-06-25 08:11 | HHI.PR ---
Subjective Remarks looks more comfortable today. sob has improved. no fever today. says that she's ready to go home. d/w the RN and no acute issues over night. Objective Vitals Vital Signs Date Time Temp Pulse Resp B/P (MAP) Pulse Ox O2 Delivery O2 Flow Rate FiO2 06/25/17 06:00 83 06/25/17 04:30 97 Nasal Cannula 2.00 06/25/17 04:00 97.5 78 24 149/72 (97) 94 06/25/17 04:00 83 06/25/17 02:00 83 06/25/17 00:46 95 Nasal Cannula 2.00 06/25/17 00:00 98.4 85 26 126/69 (88) 93 06/25/17 00:00 83 06/24/17 22:00 84 06/24/17 20:36 93 Nasal Cannula 2.00 06/24/17 20:00 98.7 90 24 135/65 (88) 94 06/24/17 18:00 93 06/24/17 16:00 98.4 92 32 119/58 (78) 90 06/24/17 16:00 92 06/24/17 14:00 87 06/24/17 12:00 100.4 95 34 124/88 (100) 89 06/24/17 12:00 95 06/24/17 10:00 93 I/O 06/24/17 06/24/17 06/24/17 06/25/17 06/25/17 06/25/17 07:00 15:00 23:00 07:00 15:00 23:00 Intake Total 1781.2 ml 505 ml 820 ml Output Total 950 ml Balance 831.2 ml 505 ml 820 ml Intake Oral 720 ml IV Total 1781.2 ml 505 ml 100 ml Output Urine Total 950 ml # Voids 6 # Bowel Movements 0 Result Diagram: 06/24/17 0530 06/24/17 0530 Imaging Last Impressions Chest X-Ray 06/25/17 06 Signed Impressions: Service Date/Time: Sunday, June 25, 2017 04:21 - CONCLUSION: 1. Cardiomegaly. No acute pulmonary disease. Panda Wilson MD Head CT 06/23/17 1410 Signed Impressions: Service Date/Time: Saturday, June 23, 2017 15:01 - CONCLUSION: No evidence of acute intracranial pathology. No masses are identified. Bifrontal atrophy. Previous aneurysm clipping Panda Wilson MD Objective Remarks GENERAL: This is a well-nourished, well-developed patient, in no apparent distress. CARDIOVASCULAR: Regular rate and regular rhythm without murmurs, gallops, or rubs. RESPIRATORY: diminished air entry bilaterally. GASTROINTESTINAL: Abdomen soft, non-tender, nondistended. Normal, active bowel sounds MUSCULOSKELETAL: Extremities without clubbing, cyanosis, or edema. NEURO: Alert & Oriented x4 to person, place, time, situation. Moves all ext x4 Procedures none Medications and IVs Current Medications Sodium Chloride 1,000 ml @ 1,000 mls/hr Q1H ONCE IV Last administered on 06/23 14:30; Start 06/23/17 at 14:10; Stop 06/23/17 at 15:09; Status DC Sodium Chloride 800 ml @ 1,000 mls/hr Q48M ONCE IV Last administered on 14:30; Start 06/23/17 at 14:10; Stop 06/23/17 at 14:57; Status DC Sodium Chloride 1,000 ml @ 75 mls/hr [id number] IV Last administered on 10:42; Start 06/23/17 at 16:15 Sodium Chloride (NS Flush) 2 ml UNSCH PRN IV FLUSH FLUSH AFTER USING IV ACCESS ; Start 06/23/17 at 16:15 Sodium Chloride (NS Flush) 2 ml BID IV FLUSH Last administered on 06/24/17 09 :02; Start 06/23/17 at 21:00 Albuterol/ Ipratropium (Duoneb Neb) 1 ampule Q6HR NEB NEB ; Start 06/23/17 at 22:00; Stop 06/23/17 at 22:00; Status DC Albuterol/ Ipratropium (Duoneb Neb) 1 ampule Q4HR NEB PRN INH SHORTNESS OF BREATH; Start 06/23/17 at 16:15 Chlorhexidine Gluconate (Peridex 0.12% Liq) 15 ml BID@08,20 MT ; Start at 20:00 Pantoprazole Sodium (Protonix Inj) 40 mg DAILY IV PUSH Last administered on 09:01; Start 06/24/17 at 09:00 Enoxaparin Sodium (Lovenox Inj) 40 mg Q24H SQ Last administered on 06/24/17 16:07; Start 06/23/17 at 17:00 Miscellaneous Information 1 Q361D XX ; Start 06/23/17 at 16:15 Chlorhexidine Gluconate (Chlorhexidine 2% Cloth) 3 pack Taper DAILY@04 TOP ; Start 06/24/17 at 04:00; Stop 06/20/18 at 03:59 Chlorhexidine Gluconate (Chlorhexidine 2% Cloth) 3 pack UNSCH PRN TOP HYGIENIC CARE; Start 06/23/17 at 16:15 Methylprednisolone Sodium Succinate (SoluMEDROL INJ) 60 mg Q8H IV PUSH Last administered on 06/25/17 01:00; Start 06/23/17 at 17:00 Cefepime HCl 2000 mg/Sodium Chloride 100 ml @ 200 mls/hr Q8H IV Last administered on 06/24/17 16:08; Start 06/23/17 at 17:00 Albuterol/ Ipratropium (Duoneb Neb) 1 ampule Q4HR NEB NEB Last administered on 06/25/17 04:30; Start 06/23/17 at 20:00 Multivitamins 10 ml/Thiamine HCl 100 mg/Folic Acid 1 mg/Sodium Chloride 511.2 ml @ 125 mls/hr DAILY IV ; Start 06/23/17 at 18:00; Stop 06/23/17 at 20:15; Status DC Tobramycin Sulfate (Tobrex 0.3% Opt Sol) 1 drop Q6HR EACH EYE ; Start at 18:00 Atorvastatin Calcium (Lipitor) 40 mg HS PO Last administered on 06/24/17 21: 34; Start 06/23/17 at 21:00 Roflumilast (Daliresp) 500 mcg DAILY PO Last administered on 06/24/17 08:59; Start 06/24/17 at 09:00 Topiramate (Topamax) 100 mg BID PO Last administered on 06/24/17 21:33; Start 06/23/17 at 21:00 Patient Own Medication PT OWN MED: Tiotropium-Olodaterol... DAILY INH ; Start 06/24/17 at 09:00 Sodium Chloride 1,000 ml @ 999 mls/hr BOLUS ONCE IV ; Start 06/23/17 at 18:30 ; Stop 06/23/17 at 19:30; Status DC Multivitamins 10 ml/Thiamine HCl 100 mg/Folic Acid 1 mg/Sodium Chloride 511.2 ml @ 125 mls/hr DAILY IV Last administered on 06/24/17 09:00; Start at 20:00 Influenza Virus Vaccine (Flu (Quadrivalent) Vaccine Inj) 0.5 ml ONCE ONCE IM Last administered on 06/24/17 09:27; Start 06/24/17 at 10:00; Stop 06/24/17 at 10:01; Status DC Cyanocobalamin (Vitamin B12 Inj) 1,000 mcg DAILY IM Last administered on 09:00; Start 06/24/17 at 09:00; Stop 07/03/17 at 08:59 Potassium Chloride (KCl) 30 meq ONCE ONCE PO Last administered on 06/24/17 09:00; Start 06/24/17 at 08:00; Stop 06/24/17 at 08:05; Status DC Budesonide/ Formoterol Fumarate (Symbicort 160-4.5 Inh) 2 puff Q12HR INH Last administered on 06/24/17 21:34; Start 06/24/17 at 21:00 A/P Problem List: (1) COPD exacerbation ICD Code: J44.1 - Chronic obstructive pulmonary disease with (acute) exacerbation (2) Hypercapnic respiratory failure ICD Code: J96.92 - Respiratory failure, unspecified with hypercapnia (3) CO2 narcosis ICD Code: R06.89 - Other abnormalities of breathing (4) Fever ICD Code: R50.9 - Fever, unspecified (5) Dehydration ICD Code: E86.0 - Dehydration Assessment and Plan A/P Metabolic encephalopathy- much improved. CO2 narcosis- much improved. - appears to be secondary to CO2 narcosis from COPD exacerbation and severe dehydration - Held all sedating medications - Held home medications of amitriptyline and sertraline and Wellbutrin lorazepam and Ambien - Continue Topamax Acute hypercapnic respiratory failure- improved. Acute COPD exacerbation-improved. Oxygen dependent COPD - Nasal cannula oxygen to keep saturation about 90% - Use BiPAP when necessary - DuoNeb every 6 hours scheduled and when necessary -continue IV Solu-Medrol - Empiric cefepime, continue home COPD meds- will deescalate the antibiotic regimen if blood cultures remain negative. -counselled on smoking cessation. -pulmonary consult appreciated. Severe dehydration - better. - received IV fluid. low TSH and T4; will recheck the levels in 3-4 weeks- f/u as outpatient. hypokalemia; replaced. - Bilateral lower extremity SCDs. Lovenox, protonix Discharge Planning possible dc home later today if ok with pulmonary. see med list. f/u; pcp and pulmonary. case management for [facility]. d/w the patient. d/w the RN. time spent 32 min. Problem Qualifiers (1) Fever: Qualified Codes: R50.9 - Fever, unspecified Eber Ervin MD Jun 25, 2017 08:11
[2017-06-25] MEDS ORDERED: SYMB160A INH (08:16)
[2017-06-25] MEDS ORDERED: PRED5TAB PO (08:16)
[2017-06-25] MEDS ORDERED: LEVA500T20 PO (08:16)
[2017-06-25] MEDS ORDERED: IPRASOL NEB (08:16)
--- NOTE | 2017-06-25 08:17 | HHI.FF ---
Face to Face Verification Diagnosis: (1) CO2 narcosis (2) COPD exacerbation Physical Therapy Order: Evaluate and Treat Home Health Nursing Order: Medical education Signs/symptoms of disease process Medication education-adverse effect Nursing assessment with vital signs I have seen patient Chayito Narvaez on 06/25/17. My clinical findings support the need for the requested home health care services because: Ltd mobility - disease progression Patient has SOB I certify that my clinical findings support that this patient is homebound because: Hx COPD- exertion dyspnea/weakness Eber Ervin MD Jun 25, 2017 08:17
--- NOTE | 2017-06-25 08:17 | HHI.DS ---
Discharge Summary Admission Date Jun 23, 2017 at 16:48 Discharge Date: Jun 25, 2017 Admitting Diagnosis COPD exacerbation, hypercarbia, low grade fever,altered mental statu (1) COPD exacerbation ICD Code: J44.1 - Chronic obstructive pulmonary disease with (acute) exacerbation Diagnosis: Principal (2) Hypercapnic respiratory failure ICD Code: J96.92 - Respiratory failure, unspecified with hypercapnia Diagnosis: Principal (3) CO2 narcosis ICD Code: R06.89 - Other abnormalities of breathing Diagnosis: Principal (4) Fever ICD Code: R50.9 - Fever, unspecified Diagnosis: Principal (5) Dehydration ICD Code: E86.0 - Dehydration Diagnosis: Principal Procedures none Brief History - From Admission This is a 72-year-old female with a history of COPD, hypertension, hyperlipidemia, history of aneurysm clipping, anxiety and depression, who was brought in by her for altered mentation, reduced by mouth intake, and and low grade fever. Decline in her mental status over last couple days, also fell from her bed yesterday. Home health nurse found her to have a temperature of 100.1. ER workup showed a negative chest x-ray white count was normal. ABG showed a pH of 7.24 and PCO2 73. With altered mental status and probable COPD exacerbation ICU admission was requested. UA was negative, urine cultures have been sent, influenza A and B sent. I evaluated the patient in the ED. She has received 2 L IV fluid boluses, still appears dehydrated. She is somnolent and lethargic and weak. But wakes up and is oriented x3. Chest exam reveals diffuse wheezing. I have placed patient on IV Solu-Medrol, DuoNeb inhalers, and empiric cefepime 2 g IV every 8 hours.. CBC/BMP: 06/24/17 0530 06/24/17 0530 Significant Findings Laboratory Tests Test 06/23/17 14:15 06/23/17 14:20 06/23/17 14:34 06/23/17 14:35 Mean Corpuscular Hemoglobin Concent 31.6 % (32.0-36.0) Platelet Count 145 TH/MM3 (150-450) Neutrophils (%) (Auto) 78.7 % (16.0-70.0) Lymphocytes # (Auto) 0.9 TH/MM3 (1.0-4.8) Albumin 3.2 GM/DL (3.4-5.0) Anion Gap 4 MEQ/L (5-15) Troponin I LESS THAN 0.02 NG/ML Thyroid Stimulating Hormone 3rd Gen 0.291 uIU/ML (0.358-3.740) Blood Gas HCO3 30 mmol/L (22-26) Blood Gas Base Excess 3.4 mmol/L (-2-2) Arterial Blood pH 7.24 (7.380-7.420) Arterial Blood Partial Pressure CO2 73 mmHg (38-42) Blood Gas Hemoglobin 11.9 G/DL (12.0-16.0) Urine Mucus MANY /lpf (OCC) Test 06/23/17 18:40 06/24/17 05:30 06/25/17 06:02 Blood Gas HCO3 27 mmol/L (22-26) 27 mmol/L (22-26) Arterial Blood pH 7.23 (7.380-7.420) 7.37 (7.380-7.420) Arterial Blood Partial Pressure CO2 65 mmHg (38-42) 49 mmHg (38-42) Red Blood Count 3.92 MIL/MM3 (4.00-5.30) Hemoglobin 11.5 GM/DL (11.6-15.3) Platelet Count 120 TH/MM3 (150-450) Neutrophils (%) (Auto) 83.0 % (16.0-70.0) Lymphocytes # (Auto) 0.4 TH/MM3 (1.0-4.8) Creatinine 0.42 MG/DL (0.50-1.00) Total Protein 5.6 GM/DL (6.4-8.2) Albumin 2.4 GM/DL (3.4-5.0) Calcium Level 8.0 MG/DL (8.5-10.1) Aspartate Amino Transf (AST/SGOT) 13 U/L (15-37) Potassium Level 3.3 MEQ/L (3.5-5.1) Thyroxine (T4) 3.7 MCG/DL (4.8-13.9) Blood Gas Base Excess 2.4 mmol/L (-2-2) Blood Gas Hemoglobin 11.5 G/DL (12.0-16.0) Imaging Last Impressions Chest X-Ray 06/25/17 0600 Signed Impressions: Service Date/Time: Sunday, June 25, 2017 04:21 - CONCLUSION: 1. Cardiomegaly. No acute pulmonary disease. Panda Wilson MD Head CT 06/23/17 1410 Signed Impressions: Service Date/Time: Friday, June 23, 2017 15:01 - CONCLUSION: No evidence of acute intracranial pathology. No masses are identified. Bifrontal atrophy. Previous aneurysm clipping Panda Wilson MD PE at Discharge GENERAL: This is a well-nourished, well-developed patient, in no apparent distress. CARDIOVASCULAR: Regular rate and regular rhythm without murmurs, gallops, or rubs. RESPIRATORY: diminished air entry bilaterally. GASTROINTESTINAL: Abdomen soft, non-tender, nondistended. Normal, active bowel sounds MUSCULOSKELETAL: Extremities without clubbing, cyanosis, or edema. NEURO: Alert & Oriented x4 to person, place, time, situation. Moves all ext x4 Hospital Course Metabolic encephalopathy- much improved. CO2 narcosis- much improved. - appears to be secondary to CO2 narcosis from COPD exacerbation and severe dehydration - Held all sedating medications - Held home medications of amitriptyline and sertraline and Wellbutrin lorazepam and Ambien - Continue Topamax Acute hypercapnic respiratory failure- improved. Acute COPD exacerbation-improved. Oxygen dependent COPD - Nasal cannula oxygen to keep saturation about 90% - Use BiPAP when necessary - DuoNeb every 6 hours scheduled and when necessary -continue IV Solu-Medrol - Empiric cefepime, continue home COPD meds- will deescalate the antibiotic regimen if blood cultures remain negative. -counselled on smoking cessation. -pulmonary consult appreciated. Severe dehydration - better. - received IV fluid. low TSH and T4; will recheck the levels in 3-4 weeks- f/u as outpatient. hypokalemia; replaced. - Bilateral lower extremity SCDs. Lovenox, protonix Pt Condition on Discharge: Fair Discharge Disposition: Disch w/ Home Health Serv Discharge Time: > 30 minutes Discharge Instructions DIET: Follow Instructions for: Heart Healthy Diet Activities you can perform: Regular-No Restrictions Follow up Referrals: PCP Follow-up Pulmonology New Medications: Levofloxacin (Levaquin) 500 Mg Tablet 500 MG PO DAILY for Infection for 5 Days, #5 TAB 0 Refills Prednisone (Prednisone) 5 Mg Tab 5 MG PO DIRECTED for copd for 10 Days, TAB 0 Refills 40 mg po daily for two days then 30 mg po daily for two days then 20 mg po daily for two days then 10 mg po daily for two days then 5 mg po daily for two days then stop. Budesonide-Formoterol Inh (Symbicort Inh) 160-4.5 Mcg/Act Aero 2 PUFF INH Q12HR for copd for 30 Days, INHALER 0 Refills Ipratropium-Albuterol Neb (Duoneb) 0.5-2.5 Mg/3 Ml Neb 1 AMPULE NEB Q4HR NEB PRN for SHORTNESS OF BREATH for 30 Days, ML 0 Refills Continued Medications: Albuterol 8.5 GM Inh (Proair Hfa 8.5 GM Inh) 90 Mcg/Act Aer 2 PUFF INH Q4-6H PRN for SHORTNESS OF BREATH, #1 INHALER 0 Refills 108 mcg/actuation Atorvastatin (Atorvastatin) 40 Mg Tab 40 MG PO HS for Cholesterol Management, #30 TAB 0 Refills Bupropion HCl ER 24 HR (Wellbutrin Xl 24 HR) 150 Mg Tab 150 MG PO DAILY for Control Depression, TAB 0 Refills Roflumilast (Daliresp) 500 Mcg Tab 500 MCG PO DAILY for COPD, #30 TAB 0 Refills Sertraline (Sertraline) 100 Mg Tab 200 MG PO DAILY, #30 TAB 0 Refills Tiotropium-Olodaterol Inh (Stiolto Respimat Inh) 2.5-2.5 Mcg/Act Aero 2 PUFF INH DAILY for COPD, #1 INHALER 0 Refills Topiramate (Topamax) 100 Mg Tab 100 MG PO BID for Control Seizures, #60 TAB 0 Refills Discontinued Medications: Amitriptyline (Amitriptyline) 100 Mg Tab 100 MG PO HS for Control Depression, #30 TAB 0 Refills Lorazepam (Lorazepam) 1 Mg Tab 0.5 MG PO BID, TAB 0 Refills Zolpidem (Zolpidem) 5 Mg Tab 5 MG PO HS PRN for INSOMNIA, TAB 0 Refills Eber Ervin MD Jun 25, 2017 08:17
[2017-06-25] MEDS: TIOTROPIUM OLODATEROL INH SCH (09:00)
[2017-06-25] MEDS: CYANOCOBALAMIN 1000 MCG/ML VIAL IM SCH (09:00)
[2017-06-25] MEDS: MULTIVITAMIN INJ 10 ML, THIAMINE INJ 100 MG, FOLIC ACID INJ 1 MG in SODIUM CHLORID 0.9%... IV SCH (09:00)
[2017-06-25] MEDS: BUDESONIDE-FORMOTEROL 160/4.5 MCG INHALER INH SCH (11:09)
[2017-06-25] MEDS: TOPIRAMATE 100 MG TAB PO SCH (11:27)
[2017-06-25] MEDS: ROFLUMILAST 500 MCG TAB PO SCH (11:27)
[2017-06-25] MEDS: PANTOPRAZOLE SODIUM 40 MG VIAL IV PUSH SCH (11:28)
[2017-06-25] MEDS: SODIUM CHLORIDE 0.9% FLUSH 10 ML FLUSH IV FLUSH SCH (11:28)
--- NOTE | 2017-06-25 12:51 | HHI.PR ---
Subjective Remarks Better today . On O2 3L. Wants to go home. No SOB at rest. Objective Vital Signs Date Time Temp Pulse Resp B/P (MAP) Pulse Ox O2 Delivery O2 Flow Rate FiO2 06/25/17 08:58 91 Nasal Cannula 2.00 06/25/17 06:00 83 06/25/17 04:30 97 Nasal Cannula 2.00 06/25/17 04:00 97.5 78 24 149/72 (97) 94 06/25/17 04:00 83 06/25/17 02:00 83 06/25/17 00:46 95 Nasal Cannula 2.00 06/25/17 00:00 98.4 85 26 126/69 (88) 93 06/25/17 00:00 83 06/24/17 22:00 84 06/24/17 20:36 93 Nasal Cannula 2.00 06/24/17 20:00 98.7 90 24 135/65 (88) 94 06/24/17 18:00 93 06/24/17 16:00 98.4 92 32 119/58 (78) 90 06/24/17 16:00 92 06/24/17 14:00 87 I/O 06/24/17 06/24/17 06/24/17 06/25/17 06/25/17 06/25/17 07:00 15:00 23:00 07:00 15:00 23:00 Intake Total 1781.2 ml 505 ml 820 ml Output Total 950 ml Balance 831.2 ml 505 ml 820 ml Intake Oral 720 ml IV Total 1781.2 ml 505 ml 100 ml Output Urine Total 950 ml # Voids 6 # Bowel Movements 0 Result Diagram: 06/24/1752906/24/1730 Objective Remarks GENERAL: This averagely built elderly lady who is in no acute distress.. HEAD, EYES, EARS, NOSE, THROAT: Head normocephalic. The pupils are reactive and equal. Tongue is moist. Throat was clear. Nasal mucosa injected. NECK: The neck is supple. No bruits. No venous distention. No lymphadenopathy. CHEST: Equal movements with distant breath sounds with expiratory wheezes bilaterally. Prolonged expirations. HEART: Heart sounds are regular. S1-S2. No murmur. ABDOMEN: Abdomen soft and protuberant. No masses. No organomegaly or tenderness. The bowel sounds are active. EXTREMITIES: No lesions. No edema. NEUROLOGIC: Reflexes are 1+ with no gross motor or sensory deficits. Cranial nerves are grossly intact. RECTAL: Rectal exam is deferred. Assessment and Plan Assessment and Plan IMPRESSION: 1. Acute on chronic respiratory failure. 2. COPD with emphysema and chronic bronchitis. 3. Altered mental status. 4. Nicotine dependency. 5. Hypertension. Plan : 1. O2 at 2 L. 2. Continue antibiotics PO for 5 days. 3. Duoneb nebs qid. 4. Prednisone 20mg bid and taper over 2 weeks. 5. Cont Breo 100 Mcg , 1 puff daily. 6. Home on O2 . Elvie Richmond MD Jun 25, 2017 12:51
== END 2017-06-25 13:18 | disposition home health service (06) | DRG 189 ==
LOC: NEPC 14:06 → NEDA 16:48 → HIME 18:34
PROVIDERS: ADMIT Internal Medicine; ATTEND Internal Medicine
DX: J96.22 Acute and chronic respiratory failure with hypercapnia (principal); G93.41 Metabolic encephalopathy; Z99.81 Dependence on supplemental oxygen; J44.1 Chronic obstructive pulmonary disease with (acute) exacerbation; E86.0 Dehydration; E78.5 Hyperlipidemia, unspecified; E87.6 Hypokalemia; I10 Essential (primary) hypertension; K21.9 Gastro-esophageal reflux disease without esophagitis; G47.30 Sleep apnea, unspecified; F17.210 Nicotine dependence, cigarettes, uncomplicated; F32.9 Major depressive disorder, single episode, unspecified; F41.9 Anxiety disorder, unspecified; Z23 Encounter for immunization; Z96.652 Presence of left artificial knee joint
CPT/HCPCS: 36600; 70450; 71010; 80053; 81001; 82550; 82607; 82805; 83605; 84436; 84443; 84484; 85025; 87040; 87804; 90686; 93005; 94150; 94640; 94664; 96360; C9113; J0692; J1650; J2930; J3411; J3420; J7030; J7040; Q2038

== ENCOUNTER 2017-07-13 13:00 | Inpatient (IN) | payer MEDICARE, OTHER ==
[~2017-07-13] VITALS: Ht 160 cm; Wt 52.5 kg
[2017-07-13] VITALS (11 sets, daily range): BP systolic 126–159; BP diastolic 72–77; PULSE 82–96; RESP 16–24; TEMP 98.1–99.4; O2SAT 88–100
[~2017-07-13 13:00] MED LIST changes: -ALBU.5I NEB; -AMIT100T2 PO; +BUPR150XL PO; -FE FCAP; +IPRASOL NEB; +LEVA500T33 PO; -LORA1TAB12 PO; -POTA-243 PO; -POTA4.25 PO; +PRED5TAB PO; +SYMB160A INH; -TOPA100T11 PO; +TOPI100 PO; -TRAM50TA PO; -TRAZ50TA12 PO; -WALKER WHEELS/F1 MIS; -ZOLP1SPR PO; -oxygen
[2017-07-13] MEDS ORDERED: SODIUM CHLORIDE 0.9% FLUSH 10 ML FLUSH IVF PRN (13:15)
--- NOTE | 2017-07-13 13:24 | PD ---
HPI Chief Complaint: Altered Mental Status Time Seen by Provider: 13:06 Travel History International Travel<30 days: No Contact w/Intl Traveler<30days: No Traveled to known affect area: No History of Present Illness HPI 72-year-old female with history of COPD on home O2 is brought in to the emergency department via EMS for reports of increasing weakness on an fatigue over the past week. Home health felt she needed to be evaluated and called EMS this morning. Patient is alert and oriented 3. Patient has multiple bruises of various stages to the left lower leg/knee, and left shoulder. Patient is complaining of no fever or chills. She denies urinary symptoms. States she is moving her bowels but not eating much. Patient continues to smoke. Patient denies falling at home. Patient states her cough is somewhat worse than usual. She has no known drug allergies. PFSH Past Medical History Arthritis: Yes (hands) Asthma: No Blood Disorders: No Anxiety: Yes (has occasion anxiety ativan) Depression: Yes (takes zoloft) Heart Rhythm Problems: No Cancer: No Cardiovascular Problems: Yes (HTN) High Cholesterol: No (better now) Chemotherapy: No Chest Pain: No Congestive Heart Failure: No COPD: Yes Diabetes: No Diminished Hearing: No Endocrine: No Gastrointestinal Disorders: Yes (CURRENTLY ) GERD: Yes Genitourinary: No Hypertension: Yes Immune Disorder: No Implanted Vascular Access Dvce: No Musculoskeletal: Yes Neurologic: Yes (BRAIN ANEURYSM) Psychiatric: Yes Reproductive: No Respiratory: Yes (O2 3L) Migraines: No Radiation Therapy: No Seizures: Yes (after anuerysm done) Sleep Apnea: Yes Thyroid Disease: No Past Surgical History Abdominal Surgery: Yes (COLONOSCOPY ) AICD: No Arteriovenous Shunt: No Insulin Pump: No Joint Replacement: Yes (rt knee ) Neurologic Surgery: Yes (ANEURYSM CLIP) Pacemaker: No Thoracic Surgery: No (but has an aortic anuer,bx of rt lung after spot noted) Other Surgery: Yes (RIGHT BREAST LUMPECTOMY - BENIGN, BUNION ON BILAT FT) Social History Alcohol Use: Yes (SOCIALLY) Tobacco Use: Yes Substance Use: No Allergies-Medications (Allergen,Severity, Reaction): Coded Allergies: No Known Allergies (Unverified Adverse Reaction, Unknown, 07/13/17) Reported Meds & Prescriptions Reported Meds & Active Scripts Active Prednisone 5 Mg Tab 5 Mg PO DIRECTED 10 Days 40 mg po daily for two days then 30 mg po daily for two days then 20 mg po daily for two days then 10 mg po daily for two days then 5 mg po daily for two days then stop. Levaquin (Levofloxacin) 500 Mg Tablet 500 Mg PO DAILY 5 Days Duoneb (Ipratropium-Albuterol Neb) 0.5-2.5 Mg/3 Ml Neb 1 Ampule NEB Q4HR NEB PRN 30 Days Symbicort Inh (Budesonide/Formoterol Fumarate) 160-4.5 Mcg/Act Aero 2 Puff INH Q12HR 30 Days Reported Wellbutrin Xl 24 HR (Bupropion HCl) 150 Mg Tab 150 Mg PO DAILY Topamax (Topiramate) 100 Mg Tab 100 Mg PO BID Daliresp (Roflumilast) 500 Mcg Tab 500 Mcg PO DAILY Stiolto Respimat Inh (Tiotropium-Olodaterol Inh) 2.5-2.5 Mcg/Act Aero 2 Puff INH DAILY Proair Hfa 8.5 GM Inh (Albuterol Sulfate) 90 Mcg/Act Aer 2 Puff INH Q4-6H PRN 108 mcg/actuation Sertraline (Sertraline HCl) 100 Mg Tab 200 Mg PO DAILY Atorvastatin (Atorvastatin Calcium) 40 Mg Tab 40 Mg PO HS Review of Systems ROS Limitations: Poor Historian Except as stated in HPI: all other systems reviewed are Neg General / Constitutional: No: Fever Eyes: No: Visual changes HENT: Positive: Lightheadedness, No: Headaches, Vertigo, Sore Throat, Rhinitis , Rhinorrhea, Congestion, Nosebleed, Neck Stiffness Cardiovascular: No: Chest Pain or Discomfort Respiratory: Positive: Cough, Shortness of Breath, Wheezing Gastrointestinal: No: Nausea, Vomiting, Diarrhea, Abdominal Pain Genitourinary: No: Dysuria Musculoskeletal: Positive: Arthralgias, Pain (see history present illness) Skin: Positive Other (multiple bruises, and old abrasions to both lower knees.) , No Rash Neurologic: No: Weakness Psychiatric: No: Depression Endocrine: No: Polydipsia Hematologic/Lymphatic: No: Easy Bruising Physical Exam Narrative GENERAL: Patient is alert and answers questions appropriately SKIN: Warm and dry. Patient has bruising to both lower extremities with 2 abrasions to both knees, and swelling over the left proximal romo and knee. Patient also has bruising on the anterior left shoulder which appears new, as well as bruising to the lower lip and left upper lip. HEAD: Atraumatic. Normocephalic. Nontender with palpation. EYES: Pupils equal and round. No scleral icterus. No injection or drainage. ENT: No nasal bleeding or discharge. Mucous membranes pink and moist. No obvious dental injury. Pharynx is clear. Airway is patent. NECK: Trachea midline. Supple and nontender. No bony tenderness or step-off. CARDIOVASCULAR: Regular rate and rhythm. No murmurs gallops or rubs appreciated. RESPIRATORY: No accessory muscle use. Diffuse wheezes and rhonchi to auscultation. Wet gurgly type cough. Breath sounds equal bilaterally. GASTROINTESTINAL: Abdomen soft, non-tender, nondistended. Hepatic and splenic margins not palpable. MUSCULOSKELETAL: Extremities without clubbing, cyanosis, patient has 1+ nonpitting edema to the left lower extremity. No obvious deformities. Patient is tender with palpation and motion of the left knee, left hip, and left shoulder without obvious deformity. NEUROLOGICAL: Awake and alert. No obvious cranial nerve deficits. Motor grossly within normal limits. Five out of 5 muscle strength in the arms and legs. Normal speech. PSYCHIATRIC: Appropriate mood and affect; insight and judgment normal. Data Data Last Documented VS Vital Signs Date Time Temp Pulse Resp B/P (MAP) Pulse Ox O2 Delivery O2 Flow Rate FiO2 07/13/17 15:50 16 88 Nasal Cannula 4.00 07/13/17 15:05 83 07/13/17 13:10 98.1 Orders Orders Electrocardiogram (07/13/17 13:11) Complete Blood Count With Diff (07/13/17 13:11) Comprehensive Metabolic Panel (07/13/17 13:11) Magnesium (Mg) (07/13/17 13:11) Ckmb (Isoenzyme) Profile (07/13/17 13:11) Troponin I (07/13/17 13:11) Act Partial Throm Time (Ptt) (07/13/17 13:11) Prothrombin Time / Inr (Pt) (07/13/17 13:11) Urinalysis - C+S If Indicated (07/13/17 13:11) Chest, Single Ap (07/13/17 13:11) Ct Brain W/O Iv Contrast(Rout) (07/13/17 13:11) Ecg Monitoring (07/13/17 13:11) Iv Access Insert/Monitor (07/13/17 13:11) Oximetry (07/13/17 13:11) Oxygen Administration (07/13/17 13:11) Sodium Chloride 0.9% Flush (Ns Flush) (07/13/17 13:15) B-Type Natriuretic Peptide (07/13/17 13:11) Hip, Uni(Ap&Lat) W Ap Pelvis (07/13/17 13:11) Knee, Complete (4vws) (07/13/17 13:11) Shoulder, Complete (>2vws) (07/13/17 13:11) CKMB (07/13/17 13:20) CKMB% (07/13/17 13:20) Arterial Blood Gas (Abg) (07/13/17 14:08) Urine Culture (07/13/17 13:20) Ceftriaxone Inj (Rocephin Inj) (07/13/17 14:30) Lactic Acid (07/13/17 14:33) Blood Culture (07/13/17 14:33) Resp Bipap / Cpap Non Invas Vt (07/13/17 ) Labs Laboratory Tests Test 07/13/17 13:20 07/13/17 15:10 White Blood Count 4.9 TH/MM3 Red Blood Count 4.41 MIL/MM3 Hemoglobin 12.8 GM/DL Hematocrit 40.3 % Mean Corpuscular Volume 91.4 FL Mean Corpuscular Hemoglobin 29.1 PG Mean Corpuscular Hemoglobin Concent 31.9 % Red Cell Distribution Width 14.5 % Platelet Count 138 TH/MM3 Mean Platelet Volume 8.8 FL Neutrophils (%) (Auto) 76.3 % Lymphocytes (%) (Auto) 11.3 % Monocytes (%) (Auto) 10.0 % Eosinophils (%) (Auto) 1.8 % Basophils (%) (Auto) 0.6 % Neutrophils # (Auto) 3.8 TH/MM3 Lymphocytes # (Auto) 0.6 TH/MM3 Monocytes # (Auto) 0.5 TH/MM3 Eosinophils # (Auto) 0.1 TH/MM3 Basophils # (Auto) 0.0 TH/MM3 CBC Comment DIFF FINAL Differential Comment Prothrombin Time 10.7 SEC Prothromb Time International Ratio 1.0 RATIO Activated Partial Thromboplast Time 25.8 SEC Urine Color YELLOW Urine Turbidity HAZY Urine pH 6.0 Urine Specific [place] 1.026 Urine Protein TRACE mg/dL Urine Glucose (UA) NEG mg/dL Urine Ketones TRACE mg/dL Urine Occult Blood NEG Urine Nitrite POS Urine Bilirubin NEG Urine Urobilinogen LESS THAN 2.0 MG/DL Urine Leukocyte Esterase LARGE Urine RBC 4 /hpf Urine WBC 40 /hpf Urine Bacteria MANY /hpf Urine Hyaline Casts 6 /lpf Urine Mucus MANY /lpf Microscopic Urinalysis Comment CULTURE INDICATED Blood Urea Nitrogen 19 MG/DL Creatinine 0.67 MG/DL Random Glucose 86 MG/DL Total Protein 6.7 GM/DL Albumin 3.1 GM/DL Calcium Level 8.5 MG/DL Magnesium Level 2.3 MG/DL Alkaline Phosphatase 107 U/L Aspartate Amino Transf (AST/SGOT) 33 U/L Alanine Aminotransferase (ALT/SGPT) 19 U/L Total Bilirubin 0.4 MG/DL Sodium Level 139 MEQ/L Potassium Level 3.6 MEQ/L Chloride Level 100 MEQ/L Carbon Dioxide Level 32.6 MEQ/L Anion Gap 6 MEQ/L Estimat Glomerular Filtration Rate 87 ML/MIN Total Creatine Kinase 472 U/L Creatine Kinase MB 3.9 NG/ML Creatine Kinase MB % 0.8 % Troponin I LESS THAN 0.02 NG/ML B-Type Natriuretic Peptide 3 PG/ML Blood Gas Puncture Site RT RADIAL Blood Gas Patient Temperature 98.6 Blood Gas HCO3 34 mmol/L Blood Gas Base Excess 7.0 mmol/L Blood Gas Oxygen Saturation 91 % Arterial Blood pH 7.28 Arterial Blood Partial Pressure CO2 74 mmHg Arterial Blood Partial Pressure O2 68 mmHG Arterial Blood Oxygen Content 15.3 Vol % Arterial Blood Carboxyhemoglobin 1.6 % Arterial Blood Methemoglobin 0.6 % Blood Gas Hemoglobin 12.0 G/DL Oxygen Delivery Device NASAL CANNULA Blood Gas Liter Flow 4 L/M Lactic Acid Level 0.7 mmol/L [facility] Medical Decision Making Medical Screen Exam Complete: Yes Emergency Medical Condition: Yes Medical Record Reviewed: Yes Differential Diagnosis COPD exacerbation. Electrolyte imbalance. Dehydration. Pneumonia. Fracture. CHF. Cardiac syndrome. Narrative Course Patient is medically stable at time of exam. Labs ordered including CBC, CMP, lactic acid, cardiac panel, proBNP, and urinalysis. Chest x-ray is ordered as well as EKG. EKG shows sinus rhythm with occasional as supraventricular premature complexes, and nonspecific T-wave abnormalities. QRS is 111. IV access is obtained patient is given 1000 mL normal saline bolus. X-rays of the left knee, left hip and pelvis, and left shoulder are ordered. CT of the head is ordered. CBC is unremarkable except for platelets of 138. Coagulation studies are normal. Chemistries showed normal electrolytes, but an elevated carbon dioxide of 32.6 this is higher than her previous which was 27.5 on 06/24/17. Creatinine kinase is elevated at 472. Troponin is less than 0.02. Albumin is low at 3.1. BNP is 3. Arterial blood gas shows: PCO2 of 74.3, slightly 8.2, bicarbonate 33.5 7.0. O2 is 90.5% Urinalysis shows positive nitrites, trace ketones, large esterase with 20 WBCs per high power field and many bacteria. Urine cultures pending. Patient is given Rocephin 1 g IV. X-rays of the left knee, left hip and pelvis, and left shoulder all without signs of acute fracture or dislocation. CT scan shows Patient's O2 sats are dropping on nasal cannula. Patient is placed on BiPAP with improved oxygenation. Patient discussed with Dr. Tirado who feels the patient wants admission for her urinary tract infection as well as CO2 narcosis from acute on chronic COPD exacerbation. Call was placed to the hospitalist for admission. Diagnosis Primary Impression: COPD exacerbation Additional Impressions: CO2 narcosis Hypercapnic respiratory failure Qualified Codes: J96.22 - Acute and chronic respiratory failure with hypercapnia UTI (urinary tract infection) Qualified Codes: N30.00 - Acute cystitis without hematuria Altered consciousness Frequent falls Admitting Information Admitting Physician Requests: Admit Condition: Stable Gabriele Richardson Jul 13, 2017 13:24
[2017-07-13 13:42] LABS: AUTOMATED NEUTROPHIL # 3.8 TH/MM3 (1.8-7.7); BASOPHIL % 0.6 % (0.0-2.0); EOSINOPHIL # 0.1 TH/MM3 (0-0.4); EOSINOPHIL % 1.8 % (0.0-4.0); HEMATOCRIT 40.3 % (35.0-46.0); HEMOGLOBIN 12.8 GM/DL (11.6-15.3); LYMPH % 11.3 % (9.0-44.0); LYMPHOCYTE # 0.6 TH/MM3 (1.0-4.8); MEAN CELL VOLUME 91.4 FL (80.0-100.0); MEAN CORPUSCULAR HEMOGLOBIN 29.1 PG (27.0-34.0); MEAN CORPUSCULAR HGB CONC 31.9 % (32.0-36.0); MEAN PLATELET VOLUME 8.8 FL (7.0-11.0); MONOCYTE # 0.5 TH/MM3 (0-0.9); NEUT % 76.3 % (16.0-70.0); PLATELET COUNT 138 TH/MM3 (150-450); RED BLOOD COUNT 4.41 MIL/MM3 (4.00-5.30); RED CELL DISTRIBUTION WIDTH 14.5 % (11.6-17.2); WHITE BLOOD COUNT 4.9 TH/MM3 (4.0-11.0)
[2017-07-13 13:50] LABS: PROTHROMBIN TIME - PATIENT 10.7 SEC (9.8-11.6)
[2017-07-13 14:03] LABS: ALBUMIN 3.1 GM/DL (3.4-5.0); AST (GOT) 33 U/L (15-37); BICARBONATE 32.6 MEQ/L (21.0-32.0); BLOOD UREA NITROGEN 19 MG/DL (7-18); CALCIUM 8.5 MG/DL (8.5-10.1); CHLORIDE 100 MEQ/L (98-107); CREATININE 0.67 MG/DL (0.50-1.00); GLOMERULAR FILTRATION RATE 87 ML/MIN (>89); GLUCOSE,RANDOM 86 MG/DL (74-106); MAGNESIUM 2.3 MG/DL (1.5-2.5); SODIUM (NA) 139 MEQ/L (136-145)
[2017-07-13 14:08] LABS: ALKALINE PHOSPHATASE 107 U/L (45-117); ALT (GPT) 19 U/L (10-53); TOTAL BILIRUBIN ADULT 0.4 MG/DL (0.2-1.0); TOTAL PROTEIN 6.7 GM/DL (6.4-8.2); TROPONIN I LESS THAN 0.02 NG/ML (0.02-0.05)
[2017-07-13 14:14] LABS: BACTERIA, URINE MANY /hpf; BILIRUBIN, URINE NEG (NEG); BLOOD, URINE NEG (NEG); GLUCOSE,URINE NEG (NEG); HYALINE CAST, URINE 6 /lpf (RARE); KETONE, URINE TRACE mg/dL (NEG); MUCUS URINE MANY /lpf (OCC); NITRITE,URINE POS (NEG); URINE COLOR YELLOW (YELLW/STRAW); URINE LEUKOCYTE ESTERASE LARGE (NEG)
[2017-07-13] MEDS ORDERED: cefTRIAXone INJ 1,000 MG in SODIUM CHLORIDE 0.9% INJ 100 ML IV ONE (14:30)
--- NOTE | 2017-07-13 15:26 | RADRPT ---
EXAM DATE/TIME: 07/13/2017 14:23 [facility] COMPARISON: CT PULMONARY ANGIOGRAM, November 04, 2015, 15:45. CHEST SINGLE AP, June 25, 2017, 4:21. INDICATIONS : Cough. MEDICAL HISTORY : Cardiovascular disease. Hypertension. SURGICAL HISTORY : Total knee replacement, left. ENCOUNTER: Initial ACUITY: 1 day PAIN SCORE: 0/10 LOCATION: Bilateral chest FINDINGS: The heart is stable. The pulmonary vascular pattern is normal. Granulomatous changes are again note d within the right lung. CONCLUSION: 1. Stable granulomatous changes within the right lung. 2. No acute focal pulmonary infiltrate or pulmonary vascular congestion. Jaden Meyer MD on July 13, 2017 at 15:16 Board Certified Radiologist. This report was verified electronically.
--- NOTE | 2017-07-13 15:39 | RADRPT ---
EXAM DATE/TIME: 07/13/2017 14:27 [facility] COMPARISON: No previous studies available for comparison. INDICATIONS : Left shoulder pain. SURGICAL HISTORY : Total knee replacement, left. ENCOUNTER: Initial ACUITY: 1 day PAIN SCORE: 2/10 LOCATION: Left Shoulder. FINDINGS: Multiple view examination of the left shoulder demonstrates no evidence of fracture or dislocation. The glenohumeral and acromioclavicular joints are maintained. Degenerative changes AC joint. There is normal range of motion between internal and external rotation. Bony mineralization is normal. CONCLUSION: Degenerative changes AC joint, negative for fracture. Matthew Basilio MD FACR on July 13, 2017 at 15:36 Board Certified Radiologist. This report was verified electronically.
--- NOTE | 2017-07-13 15:39 | RADRPT ---
EXAM DATE/TIME: 07/13/2017 14:32 [facility] COMPARISON: No previous studies available for comparison. INDICATIONS : Left hip pain and pelvis. MEDICAL HISTORY : Cardiovascular disease. Hypertension. SURGICAL HISTORY : Total knee replacement, left. ENCOUNTER: Initial ACUITY: 1 day PAIN SCORE: 2/10 LOCATION: Left Hip and pelvis. FINDINGS: Examination of the left hip was performed with AP Pelvis. The primary and secondary trabecular patte rn of the femoral neck is intact. The hip joint is of normal width without significant sclerosis or bony hypertrophy. The acetabulum is grossly intact. CONCLUSION: Negative for fracture. Matthew Basilio MD FACR on July 13, 2017 at 15:37 Board Certified Radiologist. This report was verified electronically.
--- NOTE | 2017-07-13 15:40 | RADRPT ---
EXAM DATE/TIME: 07/13/2017 14:36 [facility] COMPARISON: KNEE LEFT COMPLETE (4VWS), September 29, 2016, 14:54. INDICATIONS : Left knee pain. MEDICAL HISTORY : Cardiovascular disease. Hypertension. SURGICAL HISTORY : Total knee replacement, left. ENCOUNTER: Initial ACUITY: 1 day PAIN SCORE: 2/10 LOCATION: Left Knee. FINDINGS: AP and lateral views of the knee following arthroplasty reveals a prosthesis in anatomic alignment. F racture is not appreciated. Fracture is not appreciated. CONCLUSION: Status post total knee arthroplasty.. Fracture is not appreciated. There is no joint e ffusion. Matthew Basilio MD FACR Matthew Basilio MD FACR on July 13, 2017 at 15:37 Board Certified Radiologist. This report was verified electronically.
--- NOTE | 2017-07-13 16:28 | RADRPT ---
EXAM DATE/TIME: 07/13/2017 15:58 [place] COMPARISON: CT BRAIN W/O CONTRAST, June 23, 2017, 15:01. INDICATIONS : Increased weakness and dizziness. RADIATION DOSE: 33.86 CTDIvol (mGy) MEDICAL HISTORY : Seizures. Cardiovascular disease Hypertension. SURGICAL HISTORY : None. ENCOUNTER: Initial ACUITY: 1 week PAIN SCALE: 2/10 LOCATION: cranial TECHNIQUE: Multiple contiguous axial images were obtained of the head. Using automated exposure control and adj ustment of the mA and/or kV according to patient size, radiation dose was kept as low as reasonably a chievable to obtain optimal diagnostic quality images. DICOM format image data is available electro nically for review and comparison. 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 The left hemisphere is unremarkable . Ventricle size is appropriate. The posterior fossa is unremarkable There is no skull fracture.. Moderate sinus disease is evident. CONCLUSION: Moderate sinus disease, negative for acute process. Matthew Baislio MD FACR on July 13, 2017 at 16:25 Board Certified Radiologist. This report was verified electronically.
[2017-07-13] MEDS ORDERED: SODIUM CHLORIDE 0.9% FLUSH 10 ML FLUSH IV FLUSH PRN (17:15)
[2017-07-13] MEDS ORDERED: NALOXONE HCL 0.4 MG/ML AMP IV PUSH PRN (17:15)
[2017-07-13] MEDS ORDERED: RESP: ALBUTEROL 2.5 MG/IPRATROPIUM 0.5 MG NEB (PRN) NEB (17:15)
--- NOTE | 2017-07-13 17:42 | HHI.HP ---
HPI Service [facility] Hospitalists Primary Care Physician No Primary Care Physician Admission Diagnosis Hypercapnia/UTI/copd Diagnoses: Chief Complaint: Recurrent falls AMS Travel History International Travel<30 Days: No Contact w/Intl Traveler <30 Da: No Traveled to Known Affected Are: No History of Present Illness Written by Chanel Eubanks, acting as scribe for Dr. Mayberry on 07/13/17 at 17:32. This is a 72yo female with a PMHX of HLD, brain aneurysm s/p rupture and subsequent clipping, COPD, MEGHANN, ongoing tobaccoism, anxiety and depression who presents to [facility] the EMS due to increasing confusion, fatigue and recurrent falls at home. Patient reports recurrent falls in the past several days the last one being last night when she fell going to the bathroom and hit her face on the tile floor. Her was unable to get her up and called 911 however patient refused to come to the hospital. This morning, patient continued to have confusion that was recognized by her therapist when he came to the house. He contacted her physician who recommended she come in to the ED. Her states that she has been more confused over the past several days. She denies any recent illness. Denies any fever or chills. Denies any increase in shortness of breath or cough. She denies any chest pain. Denies any hematuria, dysuria or diarrhea. Denies any nausea vomiting or abdominal pain. Patient admits that she has a CPAP machine at home but has not used for the past several months. Patient's been on oxygen at home for the past year at 2-1/2 L. In the ED, ABG was obtained revealing a pH of 7.28 and PCO2 of 74. UA is also indicative of urinary tract infection. CT of the head showed no evidence of acute process. Chest x-ray showed no acute pulmonary process. Review of Systems Except as stated in HPI: all other systems reviewed are Neg Past Family Social History Past Medical History COPD, oxygen dependent MEGHANN, non CPAP compliant Ruptured brain aneurysm 1999 Anxiety Depression Hypertension Dyslipidemia Seizure disorder AAA Eye aneurysm Past Surgical History Aneurysmal clipping 1999 Left TKR Bunionectomy Reported Medications Prednisone 5 Mg Tab 5 Mg PO DIRECTED 10 Days 40 mg po daily for two days then 30 mg po daily for two days then 20 mg po daily for two days then 10 mg po daily for two days then 5 mg po daily for two days then stop. Levaquin (Levofloxacin) 500 Mg Tablet 500 Mg PO DAILY 5 Days Duoneb (Ipratropium-Albuterol Neb) 0.5-2.5 Mg/3 Ml Neb 1 Ampule NEB Q4HR NEB PRN 30 Days Symbicort Inh (Budesonide/Formoterol Fumarate) 160-4.5 Mcg/Act Aero 2 Puff INH Q12HR 30 Days Wellbutrin Xl 24 HR (Bupropion HCl) 150 Mg Tab 150 Mg PO DAILY Topamax (Topiramate) 100 Mg Tab 100 Mg PO BID Daliresp (Roflumilast) 500 Mcg Tab 500 Mcg PO DAILY Stiolto Respimat Inh (Tiotropium-Olodaterol Inh) 2.5-2.5 Mcg/Act Aero 2 Puff INH DAILY Proair Hfa 8.5 GM Inh (Albuterol Sulfate) 90 Mcg/Act Aer 2 Puff INH Q4-6H PRN 108 mcg/actuation Sertraline (Sertraline HCl) 100 Mg Tab 200 Mg PO DAILY Atorvastatin (Atorvastatin Calcium) 40 Mg Tab 40 Mg PO HS Allergies: Coded Allergies: No Known Allergies (Unverified Allergy, Unknown, 07/13/17) Active Ordered Medications Current Medications Medications (Trade) Dose Ordered Sig/Fern Route Start Time Stop Time Status Last Admin (NS Flush) 2 ml UNSCH PRN IVF 07/13/17 13:15 (NS Flush) 2 ml UNSCH PRN IV FLUSH 07/13/17 17:15 UNV (NS Flush) 2 ml BID IV FLUSH 07/13/17 21:00 UNV (Narcan Inj) 0.4 mg UNSCH PRN IV PUSH 07/13/17 17:15 UNV (Duoneb Neb) 1 ampule Q6HR NEB NEB 07/13/17 22:00 UNV (Duoneb Neb) 1 ampule Q2HR NEB PRN NEB 07/13/17 17:15 UNV Family History Brother, COPD, lung cancer on lung transplant list Degenerative disc disease Social History Smokes 3 cigs/day. Patient reports drinking daily but has not had any alcohol in 2 weeks. She denies any illicit drug use. Physical Exam Vital Signs Vital Signs Date Time Temp Pulse Resp B/P (MAP) Pulse Ox O2 Delivery O2 Flow Rate FiO2 07/13/17 16:00 99 BiPAP 35 07/13/17 16:00 99 35 07/13/17 15:50 16 88 Nasal Cannula 4.00 07/13/17 15:05 83 16 159/73 (101) 94 Nasal Cannula 2.00 07/13/17 14:06 98 Nasal Cannula 4.00 07/13/17 13:24 85 20 96 Nasal Cannula 07/13/17 13:14 89 20 97 Nasal Cannula 4.00 07/13/17 13:10 98.1 91 20 136/75 (95) 94 Physical Exam GENERAL: This is a frail elderly female patient, in no apparent distress. Confused. SKIN: Cool and dry. (+)ecchymosis around the lips and bottom of the chin. Noticeable swelling over left side of upper lip. HEAD: Normocephalic. No temporal or scalp tenderness. EYES: Pupils equal round and reactive. Extraocular motions intact. No scleral icterus. No injection or drainage. ENT: Nose without bleeding or purulent drainage. Throat without erythema, tonsillar hypertrophy or exudate. Uvula midline. Airway patent. NECK: Trachea midline. No lymphadenopathy. Supple, nontender, no meningeal signs. CARDIOVASCULAR: Regular rate and rhythm without murmurs, gallops, or rubs. RESPIRATORY: Diminished air entry. Diffuse wheezing noted in all lung hood. GASTROINTESTINAL: Abdomen soft, non-tender, nondistended. No hepato-splenomegaly , or palpable masses. No guarding. MUSCULOSKELETAL: Extremities without clubbing, cyanosis, or edema. No joint tenderness, effusion, or edema noted. No calf tenderness. NEUROLOGICAL: Awake and alert. Cranial nerves II through XII intact. Motor and sensory grossly within normal limits. Five out of 5 muscle strength in all muscle groups. Normal speech. Laboratory Laboratory Tests Test 07/13/17 13:20 07/13/17 15:10 White Blood Count 4.9 Red Blood Count 4.41 Hemoglobin 12.8 Hematocrit 40.3 Mean Corpuscular Volume 91.4 Mean Corpuscular Hemoglobin 29.1 Mean Corpuscular Hemoglobin Concent 31.9 Red Cell Distribution Width 14.5 Platelet Count 138 Mean Platelet Volume 8.8 Neutrophils (%) (Auto) 76.3 Lymphocytes (%) (Auto) 11.3 Monocytes (%) (Auto) 10.0 Eosinophils (%) (Auto) 1.8 Basophils (%) (Auto) 0.6 Neutrophils # (Auto) 3.8 Lymphocytes # (Auto) 0.6 Monocytes # (Auto) 0.5 Eosinophils # (Auto) 0.1 Basophils # (Auto) 0.0 CBC Comment DIFF FINAL Differential Comment Prothrombin Time 10.7 Prothromb Time International Ratio 1.0 Activated Partial Thromboplast Time 25.8 Urine Color YELLOW Urine Turbidity HAZY Urine pH 6.0 Urine Specific [place] 1.026 Urine Protein TRACE Urine Glucose (UA) NEG Urine Ketones TRACE Urine Occult Blood NEG Urine Nitrite POS Urine Bilirubin NEG Urine Urobilinogen LESS THAN 2.0 Urine Leukocyte Esterase LARGE Urine RBC 4 Urine WBC 40 Urine Bacteria MANY Urine Hyaline Casts 6 Urine Mucus MANY Microscopic Urinalysis Comment CULTURE INDICATED Blood Urea Nitrogen 19 Creatinine 0.67 Random Glucose 86 Total Protein 6.7 Albumin 3.1 Calcium Level 8.5 Magnesium Level 2.3 Alkaline Phosphatase 107 Aspartate Amino Transf (AST/SGOT) 33 Alanine Aminotransferase (ALT/SGPT) 19 Total Bilirubin 0.4 Sodium Level 139 Potassium Level 3.6 Chloride Level 100 Carbon Dioxide Level 32.6 Anion Gap 6 Estimat Glomerular Filtration Rate 87 Total Creatine Kinase 472 Creatine Kinase MB 3.9 Creatine Kinase MB % 0.8 Troponin I LESS THAN 0.02 B-Type Natriuretic Peptide 3 Blood Gas Puncture Site RT RADIAL Blood Gas Patient Temperature 98.6 Blood Gas HCO3 34 Blood Gas Base Excess 7.0 Blood Gas Oxygen Saturation 91 Arterial Blood pH 7.28 Arterial Blood Partial Pressure CO2 74 Arterial Blood Partial Pressure O2 68 Arterial Blood Oxygen Content 15.3 Arterial Blood Carboxyhemoglobin 1.6 Arterial Blood Methemoglobin 0.6 Blood Gas Hemoglobin 12.0 Oxygen Delivery Device NASAL CANNULA Blood Gas Liter Flow 4 Lactic Acid Level 0.7 Date/Time Source Procedure Growth Status 07/13/17 14:36 Blood Peripheral Aerobic Blood Culture Pending Received 07/13/17 14:36 Blood Peripheral Anaerobic Blood Culture Pending Received 07/13/17 13:20 Urine Clean Catch Urine Culture Pending Received Result Diagram: 07/13/17 1320 07/13/17 1320 Imaging Last Impressions Shoulder X-Ray 11/3/17 1311 Signed Impressions: Service Date/Time: Thursday, July 13, 2017 14:27 - CONCLUSION: Degenerative changes AC joint, negative for fracture. Matthew Basilio MD FACR Knee X-Ray 07/13/171310 Signed Impressions: Service Date/Time: Thursday, July 13, 2017 14:36 - CONCLUSION: Status post total knee arthroplasty.. Fracture is not appreciated. There is no joint effusion. Matthew Basilio MD Hip and Pelvis X-Ray 07/13/171310 Signed Impressions: Service Date/Time: Thursday, July 13, 2017 14:32 - CONCLUSION: Negative for fracture. Matthew Basilio MD FACR Head CT 07/13/171310 Signed Impressions: Service Date/Time: Thursday, July 13, 2017 15:58 - CONCLUSION: Moderate sinus disease, negative for acute process. Matthew Basilio MD FACR Chest X-Ray 07/13/171310 Signed Impressions: Service Date/Time: Thursday, July 13, 2017 14:23 - CONCLUSION: 1. Stable granulomatous changes within the right lung. 2. No acute focal pulmonary infiltrate or pulmonary vascular congestion. Jaden Meyer MD Caprini VTE Risk Assessment Caprini VTE Risk Assessment: Mod/High Risk (score >= 2) Caprini Risk Assessment Model Point Value = 1 Point Value = 2 Point Value = 3 Point Value = 5 Age 41-60 Minor surgery BMI > 25 kg/m2 Swollen legs Varicose veins or History of unexplained or recurrent spontaneous Oral contraceptives or hormone replacement Sepsis (< 1 month) Serious lung disease, including pneumonia (< 1 month) Abnormal pulmonary function Acute myocardial infarction Congestive heart failure (< 1 month) History of inflammatory bowel disease Medical patient at bed rest Age 61-74 Arthroscopic surgery Major open surgery (> 45 min) Laparoscopic surgery (> 45 min) Malignancy Confined to bed (> 72 hours) Immobilizing plaster cast Central venous access Age >= 75 History of VTE Family history of VTE Factor V Leiden Prothrombin [id number] Lupus anticoagulant Anticardiolipin antibodies Elevated serum homocysteine Heparin-induced thrombocytopenia Other congenital or acquired thrombophilia Stroke (< 1 month) Elective arthroplasty Hip, pelvis, or leg fracture Acute spinal cord injury (< 1 month) Prophylaxis Regimen Total Risk Factor Score Risk Level Prophylaxis Regimen 0-1 Low Early ambulation 2 Moderate Order ONE of the following: *Sequential Compression Device (SCD) *Heparin 5000 units SQ BID 3-4 Higher Order ONE of the following medications: *Heparin 5000 units SQ TID *Enoxaparin/Lovenox 40 mg SQ daily (WT < 150 kg, CrCl > 30 mL/min) *Enoxaparin/Lovenox 30 mg SQ daily (WT < 150 kg, CrCl > 10-29 mL/min) *Enoxaparin/Lovenox 30 mg SQ BID (WT < 150 kg, CrCl > 30 mL/min) AND/OR *Sequential Compression Device (SCD) 5 or more Highest Order ONE of the following medications: *Heparin 5000 units SQ TID (Preferred with Epidurals) *Enoxaparin/Lovenox 40 mg SQ daily (WT < 150 kg, CrCl > 30 mL/min) *Enoxaparin/Lovenox 30 mg SQ daily (WT < 150 kg, CrCl > 10-29 mL/min) *Enoxaparin/Lovenox 30 mg SQ BID (WT < 150 kg, CrCl > 30 mL/min) AND *Sequential Compression Device (SCD) Assessment and Plan Assessment and Plan 72yo female with a PMHX of HLD, brain aneurysm s/p rupture and subsequent clipping, COPD, MEGHANN, ongoing tobaccoism, anxiety and depression who presents to [facility] the EMS due to increasing confusion, fatigue and recurrent falls at home. Acute hypercapnic respiratory failure Acute on chronic COPD exacerbation with ongoing tobacco use Oxygen-dependent COPD MEGHANN, CPAP noncompliant - Consult Dr. Eng patient spinner continuous - Chest x-ray personally reviewed showing no acute pulmonary process - Advised on importance of smoking cessation - supplemental oxygen to keep O2 sats above 92% - Bipap at night - Duonebs scheduled - Resume home bronchodilator therapy Metabolic encephalopathy CO2 narcosis Recurrent falls - suspect due to hypoxia and CO2 retention - CT of the brain personally reviewed and shows no acute intracranial process - Avoid all sedating medications - PT/OT eval/tx - fall precautions Possible UTI - UA suggestive of urinary tract infection - Patient asymptomatic - Will hold off on starting antibiotic treatment at this time - Follow up on urine culture results Rhabdomyolysis - IV fluid - Monitor CK trend Seizure disorder - Resume home dose of Topamax - Seizure precautions Dyslipidemia - Resume home dose of atorvastatin 40 mg daily Depression/anxiety - Resume home dose of antidepressant medication DVT prophylaxis - Lovenox sq - Bilateral SCDs/MI beane Discussed Condition With Patient, , ED physician Physician Certification 2 Midnight Certification Type: Admission for Inpatient Services Order for Inpatient Services The services are ordered in accordance with Medicare regulations or non- Medicare payer requirements, as applicable. In the case of services not specified as inpatient-only, they are appropriately provided as inpatient services in accordance with the 2-midnight benchmark. Estimated LOS (days): 3 3 days is the estimated time the patient will need to remain in the hospital, assuming treatment plan goals are met and no additional complications. Post-Hospital Plan: Not yet determined Chanel Eubanks Jul 13, 2017 17:42
[2017-07-13] MEDS: ENOXAPARIN SODIUM 40 MG/0.4 ML SYRINGE SQ SCH (19:47)
[2017-07-13] MEDS: SODIUM CHLORIDE 0.9% FLUSH 10 ML FLUSH IV FLUSH SCH (19:47)
[2017-07-13] MEDS: RESP: ALBUTEROL 2.5 MG/IPRATROPIUM 0.5 MG NEB (SCH) NEB (22:32)
[2017-07-13] MEDS ORDERED: LORazepam 2 MG/ML VIAL IV PUSH ONE (23:30)
[2017-07-14] VITALS (24 sets, daily range): BP systolic 108–168; BP diastolic 63–87; PULSE 79–100; RESP 12–38; TEMP 97.6–99; O2SAT 93–100
[2017-07-14] MEDS ORDERED: LORazepam 2 MG/ML VIAL IV PUSH ONE ×2 (02:00→15:30)
[2017-07-14] MEDS: RESP: ALBUTEROL 2.5 MG/IPRATROPIUM 0.5 MG NEB (SCH) NEB ×4 (04:24→20:43)
[2017-07-14 06:26] LABS: AUTOMATED NEUTROPHIL # 4.7 TH/MM3 (1.8-7.7); BASOPHIL % 0.5 % (0.0-2.0); EOSINOPHIL # 0.1 TH/MM3 (0-0.4); EOSINOPHIL % 1.4 % (0.0-4.0); HEMATOCRIT 40.1 % (35.0-46.0); HEMOGLOBIN 12.6 GM/DL (11.6-15.3); LYMPHOCYTE # 0.6 TH/MM3 (1.0-4.8); MEAN CELL VOLUME 92.5 FL (80.0-100.0); MEAN CORPUSCULAR HEMOGLOBIN 29.2 PG (27.0-34.0); MEAN CORPUSCULAR HGB CONC 31.5 % (32.0-36.0); MEAN PLATELET VOLUME 9.9 FL (7.0-11.0); MONO % 7.6 % (0.0-8.0); MONOCYTE # 0.4 TH/MM3 (0-0.9); NEUT % 80.5 % (16.0-70.0); PLATELET COUNT 108 TH/MM3 (150-450); RED BLOOD COUNT 4.33 MIL/MM3 (4.00-5.30); RED CELL DISTRIBUTION WIDTH 14.4 % (11.6-17.2); WHITE BLOOD COUNT 5.8 TH/MM3 (4.0-11.0)
[2017-07-14 06:46] LABS: BICARBONATE 30.8 MEQ/L (21.0-32.0); CALCIUM 8.3 MG/DL (8.5-10.1); CREATININE 0.55 MG/DL (0.50-1.00)
[2017-07-14] MEDS ORDERED: DEXTROSE 50% IN WATER 50 ML SYRINGE ONE (07:01)
[2017-07-14] MEDS ORDERED: DEXTROSE 50% IN WATER 50 ML VIAL(D50) IV PUSH PRN (08:45)
[2017-07-14] MEDS ORDERED: GLUCAGON 1 MG/ML VIAL IM PRN (08:45)
--- NOTE | 2017-07-14 09:48 | HHI.PR ---
Subjective Remarks f/u for confusion and COPD exacerbation. patient is confused. She would not answer any questions initially and was mumbling words. Then nurse Ashlee was present during the interview when I asked her updates in regards to patient. She stated patient was intermittently confused. Patient then stated she did not like us talking about her in front of her. I asked patient if she knew her name she could not give me her name. I then asked location she was not able to tell me location. Then I asked her if she was living with anybody with her she stated no she does not live with anybody. Otherwise no other complaints. Patient was on BiPAP. Objective Vitals Vital Signs Date Time Temp Pulse Resp B/P (MAP) Pulse Ox O2 Delivery O2 Flow Rate FiO2 07/14/17 07:00 97 Bi-Pap 45 07/14/17 06:00 87 07/14/17 04:29 96 Bi-Pap 45 07/14/17 04:24 97 45 07/14/17 04:00 97.6 84 17 127/83 (98) 98 07/14/17 04:00 84 07/14/17 02:00 90 07/14/17 00:56 99.0 100 28 108/74 (85) 95 07/14/17 00:00 97 07/13/17 23:39 99.4 96 24 126/72 (90) 98 07/13/17 22:23 98 Nasal Cannula 4.00 07/13/17 21:02 91 16 150/73 (98) 100 BiPAP 35 07/13/17 19:22 97 BiPAP 35 07/13/17 19:22 97 35 07/13/17 17:45 82 16 96 Nasal Cannula 2.00 07/13/17 16:05 83 16 139/77 (97) 97 BiPAP 100 07/13/17 16:00 99 BiPAP 35 07/13/17 16:00 99 35 07/13/17 15:50 16 88 Nasal Cannula 4.00 07/13/17 15:05 83 16 159/73 (101) 94 Nasal Cannula 2.00 07/13/17 14:06 98 Nasal Cannula 4.00 07/13/17 13:24 85 20 96 Nasal Cannula 07/13/17 13:14 89 20 97 Nasal Cannula 4.00 07/13/17 13:10 98.1 91 20 136/75 (95) 94 I/O 07/13/17 07/13/17 07/13/17 07/14/17 07/14/17 07/14/17 07:00 15:00 23:00 07:00 15:00 23:00 Intake Total 100 ml 200 ml Output Total 350 ml Balance 100 ml -150 ml Intake Oral 200 ml IV Total 100 ml Output Urine Total 350 ml # Bowel Movements 0 Result Diagram: 07/14/1742307/14/17423 Objective Remarks GENERAL: in NAD on BIB CARDIOVASCULAR: Regular rate and rhythm without murmurs, gallops, or rubs. RESPIRATORY: Distant lung sounds. Otherwise clear to auscultation bilaterally. No accessory muscle use. GASTROINTESTINAL: Abdomen soft, non-tender, nondistended. MUSCULOSKELETAL: No cyanosis, or edema. BACK: Nontender without obvious deformity. No CVA tenderness. Medications and IVs Current Medications Sodium Chloride (NS Flush) 2 ml UNSCH PRN IVF FLUSH AFTER USING IV ACCESS; Start 07/13/17 at 13:15 Ceftriaxone Sodium 1000 mg/ Sodium Chloride 100 ml @ 200 mls/hr ONCE ONCE IV Last administered on 07/13/17 15:08; Start 07/13/17 at 14:30; Stop 07/13/17 at 14:59; Status DC Sodium Chloride (NS Flush) 2 ml UNSCH PRN IV FLUSH FLUSH AFTER USING IV ACCESS ; Start 07/13/17 at 17:15 Sodium Chloride (NS Flush) 2 ml BID IV FLUSH Last administered on 07/13/17 19: 47; Start 07/13/17 at 21:00 Naloxone HCl (Narcan Inj) 0.4 mg UNSCH PRN IV PUSH SEE LABEL COMMENTS; Start 07/13/17 at 17:15 Albuterol/ Ipratropium (Duoneb Neb) 1 ampule Q6HR NEB NEB Last administered on 07/14/17 04:24; Start 07/13/17 at 22:00 Albuterol/ Ipratropium (Duoneb Neb) 1 ampule Q2HR NEB PRN NEB wheezing; Start 07/13/17 at 17:15 Enoxaparin Sodium (Lovenox Inj) 40 mg Q24H SQ Last administered on 07/13/17 19 :47; Start 07/13/17 at 19:00 Lorazepam (Ativan Inj) 1 mg ONCE ONCE IV PUSH Last administered on 07/13/17 23:30; Start 07/13/17 at 23:30; Stop 07/13/17 at 23:31; Status DC Lorazepam (Ativan Inj) 1 mg ONCE ONCE IV PUSH Last administered on 07/14/17 02:00; Start 07/14/17 at 02:00; Stop 07/14/17 at 02:09; Status DC Dextrose (D50w (Syr) Inj) 50 ml STK-MED ONCE .ROUTE Last administered on 07:01; Start 07/14/17 at 07:01; Stop 07/14/17 at 07:02; Status DC Dextrose (D50w (Vial) Inj) 50 ml UNSCH PRN IV PUSH HYPOGLYCEMIA-SEE COMMENTS; Start 07/14/17 at 08:45 Glucagon (Glucagon Inj) 1 mg STAT PRN IM HYPOGLYCEMIA-SEE COMMENTS; Start 07/14 at 08:45 A/P Assessment and Plan 72yo female with a PMHX of HLD, brain aneurysm s/p rupture and subsequent clipping, COPD, MEGHANN, ongoing tobaccoism, anxiety and depression who presents to [facility] the EMS due to increasing confusion, fatigue and recurrent falls at home. 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 Eng. - Chest x-ray showed no acute pulmonary process - Advised on importance of smoking cessation - supplemental oxygen to keep O2 sats above 92% - Bipap at night - Duonebs scheduled - Resume home bronchodilator therapy Metabolic encephalopathy CO2 narcosis Recurrent falls - suspect due to hypoxia and CO2 retention - CT of the brain personally reviewed and shows no acute intracranial process - Avoid all sedating medications - PT/OT eval/tx - fall precautions Bacteriuria - Patient is a poor historian and presented confused. Will treat empirically with Rocephin pending urine cultures. Rhabdomyolysis - IV fluid - Monitor CK trend Seizure disorder/dyslipidemia/depression/anxiety - Continue home regimen. DVT prophylaxis - Lovenox sq - Bilateral SCDs/MI Barbie Boyd MD Jul 14, 2017 09:48
[2017-07-14] MEDS ORDERED: cefTRIAXone INJ 1,000 MG in SODIUM CHLORIDE 0.9% INJ 100 ML IV SCH (15:00)
[2017-07-14] MEDS: SODIUM CHLORIDE 0.9% FLUSH 10 ML FLUSH IV FLUSH SCH ×2 (15:46→20:17)
--- NOTE | 2017-07-14 16:45 | MB ---
cc: MATILDE,MATILDE DATE OF CONSULTATION 07/14/17 REASON FOR CONSULTATION COPD exacerbation, respiratory failure, altered mental status. HISTORY OF PRESENT ILLNESS The patient is a 72-year-old female with known history of COPD and chronic respiratory failure on home oxygen therapy and question of sleep apnea. The patient was brought to the emergency room with increasing confusion, tiredness, fatigue with evidence of significant hypoxemia and hypercarbia. Her pCO2 was at 74. CT scan of the head was without acute abnormality. No history of fever, chills, cough, expectoration or hemoptysis. PAST MEDICAL HISTORY 1. COPD, 2. Chronic respiratory failure on oxygen therapy, 3. Obstructive sleep apnea. Does not use her C-PAP. 4. Cerebral aneurysm eruption in 1999, 5. Mood disorder namely anxiety and depression, 6. Hypertension, 7. Hyperlipidemia, 8. Seizure disorder 9. Total knee replacement 10. Bunionectomy in the past MEDICATIONS At home 1. Prednisone 10 mg daily. 2. Levaquin. 3. DuoNeb. 4. Symbicort. 5. Wellbutrin 6. Topamax 7. 8. [place]to 9. ProAir p.r.n. 10. Sertraline. 11. Atorvastatin. ALLERGIES None known to medication FAMILY HISTORY Noncontributory. REVIEW OF SYSTEMS A 12-point review of systems as per HPI and past history otherwise negative. PHYSICAL EXAMINATION GENERAL: The patient alert but confused. VITAL SIGNS: Temperature 98, pulse 80, respiration 20, blood pressure 130/70, oxygen saturation 94% on 35% inspired oxygen fraction HEENT: Exam unremarkable. Eyes without icterus. NECK: Without adenopathy or thyroid enlargement. Central trachea. CHEST: Increased PA diameter noted. Hyper-resonant to percussion. Few scattered rhonchi on auscultation. CARDIAC: PMI not appreciated. S1, S2 audible. No murmur or rub. ABDOMEN: Lax, bowel sounds audible. EXTREMITIES: No clubbing, cyanosis or edema. SKIN: Normal. No lymphadenopathy. LABORATORY DATA White count 4.9, hemoglobin 12, hematocrit 40, platelets 138,000. Sodium 139, potassium 3.6, BUN 19, creatinine 0.6. IMAGING STUDIES Chest x-ray - No acute abnormality seen. IMPRESSION 1. COPD exacerbation 2. Hypoxic and hypercarbic respiratory failure, 3. Hypertension 4. Hyperlipidemia 5. Mood disorder. 6. Seizure disorder by history. PLAN The patient will be maintained on oxygen therapy as needed. Bronchodilators given. Consider psychiatry evaluation for the patient's confusion and altered mental status with a normal CT, however, this may be in part related to her hypercarbia. If she could use her BiPap therapy that would be helpful. However, seems to me it would be difficult to have the patient comply. Prognosis overall is poor given her advanced lung disease. I do thank you for asking me to partake in Mrs. Narvaez's care. Matilde Clayton MD WWW/ /4:05 PM /4:35 PM
[2017-07-14] MEDS: DEXTROSE 5%-LACTATED RING INJ 1,000 ML IV SCH (20:17)
[2017-07-14] MEDS: ENOXAPARIN SODIUM 40 MG/0.4 ML SYRINGE SQ SCH (20:17)
[2017-07-15] VITALS (10 sets, daily range): BP systolic 127–182; BP diastolic 77–81; PULSE 81–92; RESP 16–26; TEMP 97.7–99; O2SAT 96–100
[2017-07-15] MEDS: RESP: ALBUTEROL 2.5 MG/IPRATROPIUM 0.5 MG NEB (SCH) NEB ×4 (04:00→22:59)
[2017-07-15 06:08] LABS: HEMATOCRIT 39.6 % (35.0-46.0); HEMOGLOBIN 12.7 GM/DL (11.6-15.3); MEAN CELL VOLUME 90.8 FL (80.0-100.0); MEAN CORPUSCULAR HEMOGLOBIN 29.2 PG (27.0-34.0); MEAN CORPUSCULAR HGB CONC 32.1 % (32.0-36.0); MEAN PLATELET VOLUME 8.9 FL (7.0-11.0); PLATELET COUNT 147 TH/MM3 (150-450); RED BLOOD COUNT 4.36 MIL/MM3 (4.00-5.30); RED CELL DISTRIBUTION WIDTH 14.4 % (11.6-17.2); WHITE BLOOD COUNT 5.7 TH/MM3 (4.0-11.0)
[2017-07-15 06:42] LABS: CREATININE 0.6 MG/DL (0.50-1.00)
[2017-07-15] MEDS ORDERED: ERTAPENEM INJ 1,000 MG in SODIUM CHLORIDE 0.9% INJ 100 ML IV STA (08:10)
[2017-07-15] MEDS ORDERED: MAGNESIUM SULFATE INJ 2 GM in SODIUM CHLORIDE 0.9% INJ 96 ML IV PRN (08:15)
[2017-07-15] MEDS ORDERED: MAGNESIUM OXIDE 400 MG TAB PO PRN (08:15)
[2017-07-15] MEDS ORDERED: POTASSIUM PHOSPHATE MONOBASIC 500 MG TAB PO/TUBE PRN (08:15)
[2017-07-15] MEDS ORDERED: POTASSIUM CHLOR 20 MEQ PREMIX 100 ML IV PRN (08:15)
[2017-07-15] MEDS ORDERED: POTASSIUM PHOSPHATE MONOBASIC 500 MG TAB PO PRN (08:15)
[2017-07-15] MEDS ORDERED: MAGNESIUM SULFATE INJ 4 GM in SODIUM CHLORIDE 0.9% INJ 92 ML IV PRN (08:15)
[2017-07-15] MEDS ORDERED: POTASSIUM CHLORIDE 25 MEQ EFFERVESCENT TAB PO PRN (08:15)
[2017-07-15] MEDS ORDERED: POTASSIUM CHLOR 40 MEQ PREMIX 100 ML IV PRN ×2 (08:15)
[2017-07-15] MEDS ORDERED: SODIUM PHOSPHATE INJ 30 MMOL in SODIUM CHLOR 0.9% 250 ML INJ 240 ML IV PRN (08:15)
[2017-07-15] MEDS ORDERED: POTASSIUM PHOSPHATE INJ 30 MMOL in SODIUM CHLOR 0.9% 250 ML INJ 250 ML IV PRN (08:15)
[2017-07-15] MEDS: SODIUM CHLORIDE 0.9% FLUSH 10 ML FLUSH IV FLUSH SCH ×2 (09:07→20:49)
[2017-07-15] MEDS: POTASSIUM CHLOR 20 MEQ PREMIX 100 ML IV PRN (09:09)
[2017-07-15 09:33] LABS: MAGNESIUM 2.1 MG/DL (1.5-2.5); PHOSPHORUS 2.5 MG/DL (2.5-4.9)
--- NOTE | 2017-07-15 10:38 | HHI.PR ---
Subjective Remarks Follow up for respiratory failure secondary to COPD exacerbation confusion Patient less confused today. She is off the BiPAP. Patient is able to tell me her name, location and date. Further conversation she became confused and stated that she does not know why her will take her to the hospital get better. She stated that she usually goes home or to [facility] in [facility] to get better. When I asked patient she wanted to get better she stated "of course." I then asked her if she knew what happens in the hospital and the function of a hospital. She was not able to tell me. Discussed with patient's nurse Ashlee stated that patient intimately gets confused and agitated. Nurse Ashlee also spoke to her who stated that patient does drink a lot Patient denies any shortness of breathing. Admits to coughing. She remains afebrile. Objective Vitals Vital Signs Date Time Temp Pulse Resp B/P (MAP) Pulse Ox O2 Delivery O2 Flow Rate FiO2 07/15/17 08:49 100 Nasal Cannula 3.00 07/15/17 07:00 100 Bi-Pap 45 07/15/17 06:00 81 07/15/17 04:00 98.7 86 26 182/77 (112) 07/15/17 04:00 86 07/15/17 02:00 88 07/15/17 00:00 98.2 87 20 151/81 (104) 100 07/15/17 00:00 87 07/14/17 22:00 98 07/14/17 20:45 96 Nasal Cannula 3.00 07/14/17 20:00 98.0 91 34 168/76 (106) 95 07/14/17 20:00 91 07/14/17 19:00 95 Nasal Cannula 3.00 07/14/17 18:00 93 24 144/69 (94) 95 07/14/17 17:00 96 28 168/76 (106) 97 07/14/17 16:00 89 26 132/63 (86) 95 07/14/17 15:00 91 38 113/66 (82) 96 07/14/17 14:00 90 24 114/66 (82) 96 07/14/17 13:03 97 27 121/66 (84) 97 07/14/17 12:01 97.9 85 26 158/73 (101) 96 07/14/17 12:00 81 07/14/17 11:00 85 27 121/75 (90) 95 07/14/17 10:35 93 Nasal Cannula 3.00 I/O 07/14/17 07/14/17 07/14/17 07/15/17 07/15/17 07/15/17 07:00 15:00 23:00 07:00 15:00 23:00 Intake Total 200 ml 580 ml 995 ml Output Total 350 ml 1100 ml Balance -150 ml 580 ml -105 ml Intake Oral 200 ml 480 ml 400 ml IV Total 100 ml 595 ml Output Urine Total 350 ml 1100 ml # Bowel Movements 0 2 Result Diagram: 07/15/1743007/15/17 043 Objective Remarks GENERAL: in NAD CARDIOVASCULAR: Regular rate and rhythm without murmurs, gallops, or rubs. RESPIRATORY: Distant lung sounds with scattered expiratory wheezing. No accessory muscle use. GASTROINTESTINAL: Abdomen soft, non-tender, nondistended. MUSCULOSKELETAL: No cyanosis, or edema. BACK: Nontender without obvious deformity. No CVA tenderness. Medications and IVs Current Medications Sodium Chloride (NS Flush) 2 ml UNSCH PRN IVF FLUSH AFTER USING IV ACCESS; Start 07/13/17 at 13:15; Stop 07/14/17 at 15:20; Status DC Ceftriaxone Sodium 1000 mg/ Sodium Chloride 100 ml @ 200 mls/hr ONCE ONCE IV Last administered on 07/13/17 15:08; Start 07/13/17 at 14:30; Stop 07/13/17 at 14:59; Status DC Sodium Chloride (NS Flush) 2 ml UNSCH PRN IV FLUSH FLUSH AFTER USING IV ACCESS ; Start 07/13/17 at 17:15 Sodium Chloride (NS Flush) 2 ml BID IV FLUSH Last administered on 07/15/17 09: 07; Start 07/13/17 at 21:00 Naloxone HCl (Narcan Inj) 0.4 mg UNSCH PRN IV PUSH SEE LABEL COMMENTS; Start 07/13/17 at 17:15 Albuterol/ Ipratropium (Duoneb Neb) 1 ampule Q6HR NEB NEB Last administered on 07/15/17 10:25; Start 07/13/17 at 22:00 Albuterol/ Ipratropium (Duoneb Neb) 1 ampule Q2HR NEB PRN NEB wheezing; Start 07/13/17 at 17:15 Enoxaparin Sodium (Lovenox Inj) 40 mg Q24H SQ Last administered on 07/14/17 20 :17; Start 07/13/17 at 19:00 Lorazepam (Ativan Inj) 1 mg ONCE ONCE IV PUSH Last administered on 07/13/17 23:30; Start 07/13/17 at 23:30; Stop 07/13/17 at 23:31; Status DC Lorazepam (Ativan Inj) 1 mg ONCE ONCE IV PUSH Last administered on 07/14/17 02:00; Start 07/14/17 at 02:00; Stop 07/14/17 at 02:09; Status DC Dextrose (D50w (Syr) Inj) 50 ml STK-MED ONCE .ROUTE Last administered on 07:01; Start 07/14/17 at 07:01; Stop 07/14/17 at 07:02; Status DC Dextrose (D50w (Vial) Inj) 50 ml UNSCH PRN IV PUSH HYPOGLYCEMIA-SEE COMMENTS; Start 07/14/17 at 08:45 Glucagon (Glucagon Inj) 1 mg STAT PRN IM HYPOGLYCEMIA-SEE COMMENTS; Start 07/14 at 08:45 Ceftriaxone Sodium 1000 mg/ Sodium Chloride 100 ml @ 200 mls/hr Q24H IV Last administered on 07/14/17 15:46; Start 07/14/17 at 15:00; Stop 07/15/17 at 08:15 ; Status DC Lorazepam (Ativan Inj) 0.5 mg ONCE ONCE IV PUSH Last administered on 15:47; Start 07/14/17 at 15:30; Stop 07/14/17 at 15:31; Status DC Dextrose/Lactated Ringer's 1,000 ml @ 50 mls/hr Q20H IV Last administered on 07/14/17 20:17; Start 07/14/17 at 18:15 Potassium Chloride 100 ml @ 50 mls/hr Q2H PRN IV For Potassium 2.8 - 3.2 mEq/L ; Start 07/15/17 at 08:15 Potassium Chloride 100 ml @ 50 mls/hr Q2H PRN IV For Potassium 2.8 - 3.2 mEq/ L Last administered on 07/15/17 09:09; Start 07/15/17 at 08:15 Potassium Bicarb/ Potassium Chloride (K-Lyte Cl Eff) 50 meq UNSCH PRN PO For Potassium 3.3 - 3.5 mEq/L; Start 07/15/17 at 08:15 Potassium Chloride 100 ml @ 25 mls/hr UNSCH PRN IV For Potassium 3.3 - 3.5 mEq /L; Start 07/15/17 at 08:15 Potassium Chloride 100 ml @ 50 mls/hr Q2H PRN IV For Potassium 3.3 - 3.5 mEq/L ; Start 07/15/17 at 08:15 Magnesium Sulfate 4 gm/Sodium Chloride 100 ml @ 50 mls/hr UNSCH PRN IV For Magnesium 0.9 - 1.1 mg/dL; Start 07/15/17 at 08:15 Magnesium Oxide (Mag-Ox) 800 mg UNSCH PRN PO For Magnesium 1.2 - 1.6 mg/dL; Start 07/15/17 at 08:15 Magnesium Sulfate 2 gm/Sodium Chloride 100 ml @ 50 mls/hr UNSCH PRN IV For Magnesium 1.2 - 1.6 mg/dL; Start 07/15/17 at 08:15 Potassium Phosphate (K-Phos) 2,000 mg Q4H PRN PO For Phosphorus < 2.5 mg/dL; Start 07/15/17 at 08:15 Sodium Phosphate 30 mmol/Sodium Chloride 250 ml @ 42 mls/hr UNSCH PRN IV For Phosphorus < 2.5 mg/dL; Start 07/15/17 at 08:15 Potassium Phosphate (K-Phos) 2,000 mg UNSCH PRN PO/TUBE SEE LABEL COMMENTS; Start 07/15/17 at 08:15 Potassium Phosphate 30 mmol/ Sodium Chloride 260 ml @ 42 mls/hr UNSCH PRN IV SEE LABEL COMMENTS; Start 07/15/17 at 08:15 Ertapenem 1000 mg/ Sodium Chloride 100 ml @ 100 mls/hr ONCE STAT IV Last administered on 07/15/17t 09:07; Start 07/15/17 at 08:10; Stop 07/15/17 at 09:09 ; Status DC A/P Assessment and Plan 72yo female with a PMHX of HLD, brain aneurysm s/p rupture and subsequent clipping, COPD, MEGHANN, ongoing tobaccoism, anxiety and depression who presents to [facility] the EMS due to increasing confusion, fatigue and recurrent falls at home. Acute hypercapnic respiratory failure Acute on chronic COPD exacerbation with ongoing tobacco use Oxygen-dependent COPD MEGHANN, CPAP noncompliant - Self Defense Instructor following appreciate recommendations. - Chest x-ray showed no acute pulmonary process - Advised on importance of smoking cessation - supplemental oxygen to keep O2 sats above 92% - Bipap at night - Duonebs scheduled - continue home bronchodilator therapy -Patient has advanced disease poor prognosis. Metabolic encephalopathy, confusion CO2 narcosis Recurrent falls - suspect due to hypoxia and CO2 retention. Also may be due to alcoholic withdrawals. - CT of the brain showed no acute intracranial process - Avoid all sedating medications - PT/OT eval/tx - fall precautions UTI ESBL positive -DC Rocephin and start Invanz. Consult placed to infectious disease. Rhabdomyolysis - IV fluid - Monitor CK trend Seizure disorder/dyslipidemia/depression/anxiety - Continue home regimen. Alcohol abuse -History obtained from family. Will place patient on CIWA protocol. Hypokalemia -Will place on electrolyte protocol. DVT prophylaxis - Lovenox sq - Bilateral SCDs/MI Barbie Boyd MD Jul 15, 2017 10:38
[2017-07-15] MEDS ORDERED: LORazepam 1 MG TAB PO PRN (10:45)
[2017-07-15] MEDS ORDERED: HALOPERIDOL LACTATE 5 MG/ML AMP IM PRN (10:45)
[2017-07-15] MEDS ORDERED: LORazepam 2 MG/ML VIAL IV PUSH PRN ×3 (10:45)
[2017-07-15] MEDS ORDERED: LORazepam 2 MG TAB PO PRN (10:45)
[2017-07-15] MEDS ORDERED: FLUMAZENIL 0.5 MG/5 ML VIAL IV PUSH PRN (10:45)
--- NOTE | 2017-07-15 11:45 | EKG ---
Date Performed: 07/13/2017 Time Performed: 13:36:19 PTAGE: 72 years EKG: Sinus rhythm WITH OCCASIONAL SUPRAVENTRICULAR PREMATURE COMPLEXES BORDERLINE LEFT AXIS DEVIATION MODERATE INTRAVE NTRICULAR CONDUCTION DELAY NONSPECIFIC T-WAVE ABNORMALITY Left anterior fascicular block BORDERLINE E CG PREVIOUS TRACING : 06/23/2017 14.22 DOCTOR: Samuel Tyson Interpretating Date/Time 07/15/2017 11:44:39
[2017-07-15] MEDS: LORazepam 2 MG/ML VIAL IV PUSH PRN ×2 (16:52→17:06)
[2017-07-15] MEDS: DEXTROSE 5%-LACTATED RING INJ 1,000 ML IV SCH (17:03)
--- NOTE | 2017-07-15 17:28 | HHI.PR ---
Subjective Remarks seems less confused and less agitated no sob at rest Objective Vital Signs Date Time Temp Pulse Resp B/P (MAP) Pulse Ox O2 Delivery O2 Flow Rate FiO2 07/15/17 08:49 100 Nasal Cannula 3.00 07/15/17 07:00 100 Bi-Pap 45 07/15/17 06:00 81 07/15/17 04:00 98.7 86 26 182/77 (112) 07/15/17 04:00 86 07/15/17 02:00 88 07/15/17 00:00 98.2 87 20 151/81 (104) 100 07/15/17 00:00 87 07/14/17 22:00 98 07/14/17 20:45 96 Nasal Cannula 3.00 07/14/17 20:00 98.0 91 34 168/76 (106) 95 07/14/17 20:00 91 07/14/17 19:00 95 Nasal Cannula 3.00 07/14/17 18:00 93 24 144/69 (94) 95 I/O 07/14/17 07/14/17 07/14/17 07/15/17 07/15/17 07/15/17 07:00 15:00 23:00 07:00 15:00 23:00 Intake Total 200 ml 580 ml 995 ml Output Total 350 ml 1100 ml Balance -150 ml 580 ml -105 ml Intake Oral 200 ml 480 ml 400 ml IV Total 100 ml 595 ml Output Urine Total 350 ml 1100 ml # Bowel Movements 0 2 Result Diagram: 07/15/17 04307/15/17 043 Objective Remarks GENERAL: SKIN: Warm and dry. HEAD: Atraumatic. Normocephalic. EYES: Pupils equal and round. No scleral icterus. No injection or drainage. ENT: No nasal bleeding or discharge. Mucous membranes pink and moist. NECK: Trachea midline. No JVD. CARDIOVASCULAR: Regular rate and rhythm. RESPIRATORY: No accessory muscle use. Clear to auscultation. Breath sounds equal bilaterally. GASTROINTESTINAL: Abdomen soft, non-tender, nondistended. Hepatic and splenic margins not palpable. MUSCULOSKELETAL: Extremities without clubbing, cyanosis, or edema. No obvious deformities. NEUROLOGICAL: Awake and alert. No obvious cranial nerve deficits. Motor grossly within normal limits. Five out of 5 muscle strength in the arms and legs. Normal speech. PSYCHIATRIC: Appropriate mood and affect; insight and judgment normal. Assessment and Plan Assessment and Plan respiratory failure hypoxic and hypercarbic copd exacerbation plan o2 bronchodilator therapy increase activity Matilde Clayton MD Jul 15, 2017 17:28
[2017-07-15] MEDS: ENOXAPARIN SODIUM 40 MG/0.4 ML SYRINGE SQ SCH (17:33)
--- NOTE | 2017-07-15 17:39 | PD.ID.CON ---
History of Present Illness Service ID Consult Requested By Dr Garcia Reason for Consult ESBL + E.coli Primary Care Physician No Primary Care Physician Diagnoses: History of Present Illness pt is a 72 yo tobacco + female with chronic alcoholism who is confused and unabble to give menaingful history' HIstory obtained from the chart She has a h/o COPD and chronic respiratory failure on home oxygen therapy and question of sleep apnea. The patient was brought to the emergency room with increasing confusion and hypoxemia and hypercapnea. Her pCO2 was at 74. CT scan of the head was negative No fever, chills, cough, expectoration or hemoptysis. Negative CXR Urine was with pyuria and subsequtly culture positive for ESBL + E.coli She has hypoglycemia and low grade fever on presentation without lactic acidosis or leukocytosis Pt was initially placed on CFTX, but after cultures came back was given 1 dose of Ertapenem Review of Systems ROS Limitations: Altered Mental Status, Poor Historian Past Family Social History Allergies: Coded Allergies: No Known Allergies (Unverified Allergy, Unknown, 07/13/17) Past Medical History 1. COPD, 2. Chronic respiratory failure on oxygen therapy, 3. Obstructive sleep apnea. Does not use her C-PAP. 4. Cerebral aneurysm eruption in 1999, 5. Mood disorder namely anxiety and depression, 6. Hypertension, 7. Hyperlipidemia, 8. Seizure disorder Past Surgical History Total knee replacement Bunionectomy in the past Active Ordered Medications Medications where reviewed in EMR Antibiotics Include: Ertapenem Family History reviewed Noncontributory to current dz Social History daily drinking + light tobacco 1-2 sig /day no drugs Physical Exam Vital Signs Vital Signs Date Time Temp Pulse Resp B/P (MAP) Pulse Ox O2 Delivery O2 Flow Rate FiO2 07/15/17 08:49 100 Nasal Cannula 3.00 07/15/17 07:00 100 Bi-Pap 45 07/15/17 06:00 81 07/15/17 04:00 98.7 86 26 182/77 (112) 07/15/17 04:00 86 07/15/17 02:00 88 07/15/17 00:00 98.2 87 20 151/81 (104) 100 07/15/17 00:00 87 07/14/17 22:00 98 07/14/17 20:45 96 Nasal Cannula 3.00 07/14/17 20:00 98.0 91 34 168/76 (106) 95 07/14/17 20:00 91 07/14/17 19:00 95 Nasal Cannula 3.00 07/14/17 18:00 93 24 144/69 (94) 95 07/14/17 17:00 96 28 168/76 (106) 97 Physical Exam CONSTITUTIONAL/GENERAL: This is a thin elderly patient, in no apparent distress. TUBES/LINES/DRAINS: SKIN: No jaundice, rashes, or lesions. Ecchymoses on upper and lower extremities. Skin temperature appropriate. Not diaphoretic. HEAD: Atraumatic. Normocephalic. EYES: Pupils equal and round and reactive. Extraocular motions intact. No scleral icterus. No injection or drainage. Fundi not examined. ENT: Hearing grossly normal. Nose without bleeding or purulent drainage. Oral mucosae without visible erythema, exudates, masses, or lesions. NECK: Trachea midline. Supple, nontender. CARDIOVASCULAR: Regular rate and rhythm without murmurs, gallops, or rubs. No JVD. Peripheral pulses symmetric. RESPIRATORY/CHEST: Symmetric, unlabored respirations. Clear to auscultation. Breath sounds diminished bilaterally. No wheezes, rales, or rhonchi. GASTROINTESTINAL: Abdomen soft, non-tender, nondistended. No hepato-splenomegaly , or palpable masses. No guarding. Bowel sounds present. GENITOURINARY: Without palpable bladder distension. Ulloa catheter in place with clear yellow rine MUSCULOSKELETAL: Extremities without clubbing, cyanosis, or edema. No joint tenderness or effusion noted. No calf tenderness. No mottling or clubbing. LYMPHATICS: No palpable cervical or supraclavicular adenopathy. NEUROLOGICAL: Awake and alert. Motor and sensory grossly within normal limits. Follows commands. Confused, speech is somewhat incoherent. Moves all extremities. PSYCHIATRIC: Mildly agitated Laboratory Laboratory Tests Test 07/15/17 04:31 White Blood Count 5.7 Red Blood Count 4.36 Hemoglobin 12.7 Hematocrit 39.6 Mean Corpuscular Volume 90.8 Mean Corpuscular Hemoglobin 29.2 Mean Corpuscular Hemoglobin Concent 32.1 Red Cell Distribution Width 14.4 Platelet Count 147 Mean Platelet Volume 8.9 Blood Urea Nitrogen 11 Creatinine 0.60 Random Glucose 117 Calcium Level 8.0 Sodium Level 142 Potassium Level 2.8 Chloride Level 100 Carbon Dioxide Level 36.0 Anion Gap 6 Estimat Glomerular Filtration Rate 98 Phosphorus Level 2.5 Magnesium Level 2.1 Date/Time Source Procedure Growth Status 07/13/17 14:36 Blood Peripheral Aerobic Blood Culture - Preliminary NO GROWTH IN 2 DAYS Resulted 07/13/17 14:36 Blood Peripheral Anaerobic Blood Culture - Preliminary NO GROWTH IN 2 DAYS Resulted 07/13/17 13:20 Urine Clean Catch Urine Culture - Final Escherichia Coli Esbl Positive Complete Result Diagram: 07/15/1743007/15/17430 Imaging Last Impressions Shoulder X-Ray 07/13/171310 Signed Impressions: Service Date/Time: Thursday, July 13, 2017 14:27 - CONCLUSION: Degenerative changes AC joint, negative for fracture. Matthew Basilio MD FACR Knee X-Ray 07/13/171310 Signed Impressions: Service Date/Time: Thursday, July 13, 2017 14:36 - CONCLUSION: Status post total knee arthroplasty.. Fracture is not appreciated. There is no joint effusion. Matthew Basilio MD Hip and Pelvis X-Ray 07/13/171310 Signed Impressions: Service Date/Time: Thursday, July 13, 2017 14:32 - CONCLUSION: Negative for fracture. Matthew Basilio MD FACR Head CT 07/13/171310 Signed Impressions: Service Date/Time: Thursday, July 13, 2017 15:58 - CONCLUSION: Moderate sinus disease, negative for acute process. Matthew Basilio MD FACR Chest X-Ray 07/13/171310 Signed Impressions: Service Date/Time: Thursday, July 13, 2017 14:23 - CONCLUSION: 1. Stable granulomatous changes within the right lung. 2. No acute focal pulmonary infiltrate or pulmonary vascular congestion. Jaden Meyer MD Assessment and Plan Assessment and Plan COPD exacerbation UTI ESBL + E.coli Hypoglycemia and low grade fever on presentation ? sepsis - lactic acid wnl Delirium, nmental status change : infection vs ETOH withdrawl or combination repeat UA, C+S - will hold off abx for now monitor clinically - cont Ertapnem for now anticipate transition to PO (Bactrim) when ready for dc Discussed Condition With Sammi Burger MD Jul 15, 2017 17:39
[2017-07-15] MEDS ORDERED: MISCELLANEOUS PHARMACY INFORMATION XX PRN (17:45)
[2017-07-15] MEDS ORDERED: ASP: Documented ESBL, MDR A baumannii or P. aeruginosa PRN (17:45)
[2017-07-16] VITALS (14 sets, daily range): BP systolic 121–162; BP diastolic 74–88; PULSE 88–103; RESP 16–20; TEMP 97.9–98.9; O2SAT 92–99
[2017-07-16] MEDS: RESP: ALBUTEROL 2.5 MG/IPRATROPIUM 0.5 MG NEB (SCH) NEB ×4 (05:06→21:32)
[2017-07-16 06:57] LABS: HEMATOCRIT 42.1 % (35.0-46.0); HEMOGLOBIN 13.4 GM/DL (11.6-15.3); MEAN CELL VOLUME 91.2 FL (80.0-100.0); MEAN CORPUSCULAR HGB CONC 31.8 % (32.0-36.0); MEAN PLATELET VOLUME 8.8 FL (7.0-11.0); PLATELET COUNT 145 TH/MM3 (150-450); RED BLOOD COUNT 4.61 MIL/MM3 (4.00-5.30); RED CELL DISTRIBUTION WIDTH 14.2 % (11.6-17.2); WHITE BLOOD COUNT 4.4 TH/MM3 (4.0-11.0)
[2017-07-16 07:20] LABS: BICARBONATE 36.7 MEQ/L (21.0-32.0); CALCIUM 8.6 MG/DL (8.5-10.1); CREATININE 0.47 MG/DL (0.50-1.00)
--- NOTE | 2017-07-16 07:20 | HHI.PR ---
Subjective Remarks seems less confused and less agitated no sob at rest Objective Vital Signs Date Time Temp Pulse Resp B/P (MAP) Pulse Ox O2 Delivery O2 Flow Rate FiO2 07/16/17 06:00 97 07/16/17 05:06 99 35 07/16/17 04:00 96 07/16/17 04:00 98.7 96 18 121/86 (98) 97 07/16/17 02:00 88 07/16/17 01:40 95 35 07/16/17 00:00 92 07/16/17 00:00 98.9 92 19 134/85 (101) 99 07/15/17 23:01 96 Nasal Cannula 3.00 07/15/17 22:00 92 07/15/17 20:00 99.0 90 16 127/77 (94) 99 07/15/17 20:00 90 07/15/17 19:00 99 Nasal Cannula 2.00 07/15/17 16:00 98.4 07/15/17 08:49 100 Nasal Cannula 3.00 07/15/17 08:00 97.7 I/O 07/15/17 07/15/17 07/15/17 07/16/17 07/16/17 07/16/17 07:00 15:00 23:00 07:00 15:00 23:00 Intake Total 995 ml 680 ml 541 ml Output Total 1100 ml 1000 ml 600 ml Balance -105 ml -320 ml -59 ml Intake Oral 400 ml 480 ml 480 ml IV Total 595 ml 200 ml 61 ml Output Urine Total 1100 ml 1000 ml 600 ml # Bowel Movements 2 2 Result Diagram: 07/16/17 0602 07/16/17 0019 Objective Remarks GENERAL: SKIN: Warm and dry. HEAD: Atraumatic. Normocephalic. EYES: Pupils equal and round. No scleral icterus. No injection or drainage. ENT: No nasal bleeding or discharge. Mucous membranes pink and moist. NECK: Trachea midline. No JVD. CARDIOVASCULAR: Regular rate and rhythm. RESPIRATORY: No accessory muscle use. Clear to auscultation. Breath sounds equal bilaterally. GASTROINTESTINAL: Abdomen soft, non-tender, nondistended. Hepatic and splenic margins not palpable. MUSCULOSKELETAL: Extremities without clubbing, cyanosis, or edema. No obvious deformities. NEUROLOGICAL: Awake and alert. No obvious cranial nerve deficits. Motor grossly within normal limits. Five out of 5 muscle strength in the arms and legs. Normal speech. PSYCHIATRIC: Appropriate mood and affect; insight and judgment normal. Assessment and Plan Assessment and Plan respiratory failure hypoxic and hypercarbic copd exacerbation plan o2 bronchodilator therapy increase activity Matilde Clayton MD Jul 16, 2017 07:20
[2017-07-16] MEDS: THIAMINE HCL 100 MG TAB PO SCH (08:19)
[2017-07-16] MEDS: MULTIVITAMINS/MINERALS THERAPEUTIC TAB PO SCH (08:19)
[2017-07-16] MEDS: FOLIC ACID 1 MG TAB PO SCH (08:19)
[2017-07-16] MEDS: SODIUM CHLORIDE 0.9% FLUSH 10 ML FLUSH IV FLUSH SCH ×2 (08:20→21:00)
[2017-07-16] MEDS: ERTAPENEM INJ 1,000 MG in SODIUM CHLORIDE 0.9% INJ 100 ML IV SCH (08:20)
[2017-07-16] MEDS: POTASSIUM CHLOR 20 MEQ PREMIX 100 ML IV PRN ×2 (08:21→11:58)
[2017-07-16] MEDS: DEXTROSE 5%-LACTATED RING INJ 1,000 ML IV SCH ×2 (10:15→23:35)
--- NOTE | 2017-07-16 13:28 | HHI.PR ---
Subjective Remarks Follow-up for UTI, confusion, alcohol withdrawals, acute respiratory failure secondary to COPD exacerbation Patient is not confused today. She is AAO 3. She is very anxious to go home. She denies any shortness of breathing or cough. Patient remains afebrile. Objective Vitals Vital Signs Date Time Temp Pulse Resp B/P (MAP) Pulse Ox O2 Delivery O2 Flow Rate FiO2 07/16/17 12:00 98.4 96 18 138/74 (95) 94 07/16/17 12:00 96 07/16/17 10:00 100 07/16/17 08:00 90 07/16/17 08:00 98.8 90 16 162/83 (109) 95 07/16/17 07:47 95 Nasal Cannula 2.00 07/16/17 07:00 99 Nasal Cannula 3.00 07/16/17 06:00 97 07/16/17 05:06 99 35 07/16/17 04:00 96 07/16/17 04:00 98.7 96 18 121/86 (98) 97 07/16/17 02:00 88 07/16/17 01:40 95 35 07/16/17 00:00 92 07/16/17 00:00 98.9 92 19 134/85 (101) 99 07/15/17 23:01 96 Nasal Cannula 3.00 07/15/17 22:00 92 07/15/17 20:00 99.0 90 16 127/77 (94) 99 07/15/17 20:00 90 07/15/17 19:00 99 Nasal Cannula 2.00 07/15/17 16:00 98.4 I/O 07/15/17 07/15/17 07/15/17 07/16/17 07/16/17 07/16/17 07:00 15:00 23:00 07:00 15:00 23:00 Intake Total 995 ml 680 ml 541 ml Output Total 1100 ml 1000 ml 600 ml 1000 ml Balance -105 ml -320 ml -59 ml -1000 ml Intake Oral 400 ml 480 ml 480 ml IV Total 595 ml 200 ml 61 ml Output Urine Total 1100 ml 1000 ml 600 ml 1000 ml # Bowel Movements 2 2 1 Result Diagram: 07/16/17 0607/16/17 0602 Objective Remarks GENERAL: in NAD CARDIOVASCULAR: Regular rate and rhythm without murmurs, gallops, or rubs. RESPIRATORY: Diffuse scattered rhonchi. No accessory muscle use. GASTROINTESTINAL: Abdomen soft, non-tender, nondistended. MUSCULOSKELETAL: No cyanosis, or edema. BACK: Nontender without obvious deformity. No CVA tenderness. NEURO: AAO 3. Medications and IVs Current Medications Sodium Chloride (NS Flush) 2 ml UNSCH PRN IVF FLUSH AFTER USING IV ACCESS; Start 07/13/17 at 13:15; Stop 07/14/17 at 15:20; Status DC Ceftriaxone Sodium 1000 mg/ Sodium Chloride 100 ml @ 200 mls/hr ONCE ONCE IV Last administered on 07/13/17 15:08; Start 07/13/17 at 14:30; Stop 07/13/17 at 14:59; Status DC Sodium Chloride (NS Flush) 2 ml UNSCH PRN IV FLUSH FLUSH AFTER USING IV ACCESS ; Start 07/13/17 at 17:15 Sodium Chloride (NS Flush) 2 ml BID IV FLUSH Last administered on 07/16/17 08: 20; Start 07/13/17 at 21:00 Naloxone HCl (Narcan Inj) 0.4 mg UNSCH PRN IV PUSH SEE LABEL COMMENTS; Start 07/13/17 at 17:15 Albuterol/ Ipratropium (Duoneb Neb) 1 ampule Q6HR NEB NEB Last administered on 07/16/17 14:53; Start 07/13/17 at 22:00 Albuterol/ Ipratropium (Duoneb Neb) 1 ampule Q2HR NEB PRN NEB wheezing; Start 07/13/17 at 17:15 Enoxaparin Sodium (Lovenox Inj) 40 mg Q24H SQ Last administered on 07/15/17 17 :33; Start 07/13/17 at 19:00 Lorazepam (Ativan Inj) 1 mg ONCE ONCE IV PUSH Last administered on 07/13/17 23:30; Start 07/13/17 at 23:30; Stop 07/13/17 at 23:31; Status DC Lorazepam (Ativan Inj) 1 mg ONCE ONCE IV PUSH Last administered on 07/14/17 02:00; Start 07/14/17 at 02:00; Stop 07/14/17 at 02:09; Status DC Dextrose (D50w (Syr) Inj) 50 ml STK-MED ONCE .ROUTE Last administered on 07:01; Start 07/14/17 at 07:01; Stop 07/14/17 at 07:02; Status DC Dextrose (D50w (Vial) Inj) 50 ml UNSCH PRN IV PUSH HYPOGLYCEMIA-SEE COMMENTS; Start 07/14/17 at 08:45 Glucagon (Glucagon Inj) 1 mg STAT PRN IM HYPOGLYCEMIA-SEE COMMENTS; Start 07/14 at 08:45 Ceftriaxone Sodium 1000 mg/ Sodium Chloride 100 ml @ 200 mls/hr Q24H IV Last administered on 07/14/17 15:46; Start 07/14/17 at 15:00; Stop 07/15/17 at 08:15 ; Status DC Lorazepam (Ativan Inj) 0.5 mg ONCE ONCE IV PUSH Last administered on 15:47; Start 07/14/17 at 15:30; Stop 07/14/17 at 15:31; Status DC Dextrose/Lactated Ringer's 1,000 ml @ 50 mls/hr Q20H IV Last administered on 07/16/17 10:15; Start 07/14/17 at 18:15 Potassium Chloride 100 ml @ 50 mls/hr Q2H PRN IV For Potassium 2.8 - 3.2 mEq/L ; Start 07/15/17 at 08:15 Potassium Chloride 100 ml @ 50 mls/hr Q2H PRN IV For Potassium 2.8 - 3.2 mEq/ L Last administered on 07/16/17 11:58; Start 07/15/17 at 08:15 Potassium Bicarb/ Potassium Chloride (K-Lyte Cl Eff) 50 meq UNSCH PRN PO For Potassium 3.3 - 3.5 mEq/L; Start 07/15/17 at 08:15 Potassium Chloride 100 ml @ 25 mls/hr UNSCH PRN IV For Potassium 3.3 - 3.5 mEq /L; Start 07/15/17 at 08:15 Potassium Chloride 100 ml @ 50 mls/hr Q2H PRN IV For Potassium 3.3 - 3.5 mEq/L ; Start 07/15/17 at 08:15 Magnesium Sulfate 4 gm/Sodium Chloride 100 ml @ 50 mls/hr UNSCH PRN IV For Magnesium 0.9 - 1.1 mg/dL; Start 07/15/17 at 08:15 Magnesium Oxide (Mag-Ox) 800 mg UNSCH PRN PO For Magnesium 1.2 - 1.6 mg/dL; Start 07/15/17 at 08:15 Magnesium Sulfate 2 gm/Sodium Chloride 100 ml @ 50 mls/hr UNSCH PRN IV For Magnesium 1.2 - 1.6 mg/dL; Start 07/15/17 at 08:15 Potassium Phosphate (K-Phos) 2,000 mg Q4H PRN PO For Phosphorus < 2.5 mg/dL; Start 07/15/17 at 08:15 Sodium Phosphate 30 mmol/Sodium Chloride 250 ml @ 42 mls/hr UNSCH PRN IV For Phosphorus < 2.5 mg/dL; Start 07/15/17 at 08:15 Potassium Phosphate (K-Phos) 2,000 mg UNSCH PRN PO/TUBE SEE LABEL COMMENTS; Start 07/15/17 at 08:15 Potassium Phosphate 30 mmol/ Sodium Chloride 260 ml @ 42 mls/hr UNSCH PRN IV SEE LABEL COMMENTS; Start 07/15/17 at 08:15 Ertapenem 1000 mg/ Sodium Chloride 100 ml @ 100 mls/hr ONCE STAT IV Last administered on 07/15/17 09:07; Start 07/15/17 at 08:10; Stop 07/15/17 at 09:09 ; Status DC Folic Acid (Folate) 1 mg DAILY PO Last administered on 07/16/17 08:19; Start 07/16/17 at 09:00; Stop 07/21/17 at 08:59 Thiamine HCl (Vitamin B1) 100 mg DAILY PO Last administered on 07/16/17 08:19 ; Start 07/16/17 at 09:00 Multivitamins/ Minerals Therapeutic (Theragran M Tab) 1 tab DAILY PO Last administered on 07/16/17 08:19; Start 07/16/17 at 09:00; Stop 07/21/17 at 08: 59 Flumazenil (Romazicon Inj) 0.2 mg Q1M PRN IV PUSH SEE LABEL COMMENTS; Start at 10:45 Lorazepam (Ativan) 1 mg Q4H PRN PO CIWA 8 - 10 Last administered on 07/16/17 08:20; Start 07/15/17 at 10:45 Lorazepam (Ativan Inj) 1 mg Q4H PRN IV PUSH CIWA 8 - 10; Start 07/15/17 at 10: 45 Lorazepam (Ativan) 2 mg Q2H PRN PO CIWA 11-14; Start 07/15/17 at 10:45 Lorazepam (Ativan Inj) 2 mg Q2H PRN IV PUSH CIWA 11-14 Last administered on 17:06; Start 07/15/17 at 10:45 Lorazepam (Ativan Inj) 2 mg Q1H PRN IV PUSH CIWA 15-20; Start 07/15/17 at 10:45 Lorazepam (Ativan Inj) 2 mg Q15M PRN IV PUSH CIWA > 20; Start 07/15/17 at 10:45 Haloperidol Lactate (Haldol Inj) 2 mg Q15M PRN IM SEE LABEL COMMENTS Last administered on 07/15/17 17:32; Start 07/15/17 at 10:45 Miscellaneous Medication (ASP Crit: Doc ESBL, MDR A baumannii or P aer) 1 UNSCH X1 PRN .XX PHARMACY DOCUMENTATION; Start 07/15/17 at 17:45; Stop 07/16/17 at 17 :44 Miscellaneous Medication ([facility]) 1 UNSCH X1 PRN XX PHARMACY DOCUMENTATION; Start 07/15/17 at 17:45; Stop 07/16/17 at 17:44 Ertapenem 1000 mg/ Sodium Chloride 100 ml @ 200 mls/hr Q24H IV Last administered on 07/16/17 08:20; Start 07/16/17 at 09:00 A/P Assessment and Plan 72yo female with a PMHX of HLD, brain aneurysm s/p rupture and subsequent clipping, COPD, MEGHANN, ongoing tobaccoism, anxiety and depression who presents to [facility] the EMS due to increasing confusion, fatigue and recurrent falls at home. Acute hypercapnic respiratory failure Acute on chronic COPD exacerbation with ongoing tobacco use Oxygen-dependent COPD MEGHANN, CPAP noncompliant - [employer] following appreciate recommendations. - Chest x-ray showed no acute pulmonary process - Advised on importance of smoking cessation - supplemental oxygen to keep O2 sats above 92% - Bipap at night - Duonebs scheduled - continue home bronchodilator therapy -Patient has advanced disease poor prognosis. Metabolic encephalopathy, confusion CO2 narcosis Recurrent falls - suspect due to combination of hypoxia , CO2 retention, and UTI. Also may be due to alcoholic withdrawals. - CT of the brain showed no acute intracranial process - Avoid all sedating medications - PT/OT eval/tx - fall precautions -Confusion resolved. UTI ESBL positive -Status post Rocephin. Patients on Invanz. Infectious disease consulted. -Continue with Invanz per infectious disease. When patient is discharged repeat transitioned to oral Bactrim. Rhabdomyolysis - IV fluid - Monitor CK trend Seizure disorder/dyslipidemia/depression/anxiety - Continue home regimen. Alcohol abuse -On CINE protocol. Hypokalemia -Replenish as needed. DVT prophylaxis - Lovenox sq - Bilateral SCDs/MI hose Deconditioned -Consult PT. Since patient is doing well and is not confused today. Will discontinue the [place]. Discussed care in the presence of patient's nurse. Discharge Planning Patient can be transferred to the floor. Anticipate discharge in 1-2 days. Barbie Garcia MD Jul 16, 2017 13:28
[2017-07-16] MEDS: ENOXAPARIN SODIUM 40 MG/0.4 ML SYRINGE SQ SCH (17:21)
[2017-07-17] VITALS (7 sets, daily range): BP systolic 136–160; BP diastolic 80–88; PULSE 84–105; RESP 20; TEMP 97–98.3; O2SAT 95–98
[2017-07-17] MEDS: RESP: ALBUTEROL 2.5 MG/IPRATROPIUM 0.5 MG NEB (SCH) NEB ×3 (05:11→13:45)
[2017-07-17 08:46] LABS: HEMOGLOBIN 13.2 GM/DL (11.6-15.3); MEAN CELL VOLUME 90.4 FL (80.0-100.0); MEAN CORPUSCULAR HGB CONC 32.1 % (32.0-36.0); MEAN PLATELET VOLUME 8.7 FL (7.0-11.0); PLATELET COUNT 166 TH/MM3 (150-450); RED BLOOD COUNT 4.54 MIL/MM3 (4.00-5.30); RED CELL DISTRIBUTION WIDTH 14.4 % (11.6-17.2); WHITE BLOOD COUNT 4.8 TH/MM3 (4.0-11.0)
[2017-07-17] MEDS: SODIUM CHLORIDE 0.9% FLUSH 10 ML FLUSH IV FLUSH SCH (09:00)
[2017-07-17] MEDS: THIAMINE HCL 100 MG TAB PO SCH (09:12)
[2017-07-17] MEDS: FOLIC ACID 1 MG TAB PO SCH (09:12)
[2017-07-17] MEDS: MULTIVITAMINS/MINERALS THERAPEUTIC TAB PO SCH (09:12)
[2017-07-17] MEDS: ERTAPENEM INJ 1,000 MG in SODIUM CHLORIDE 0.9% INJ 100 ML IV SCH (09:13)
[2017-07-17 09:33] LABS: CALCIUM 8.7 MG/DL (8.5-10.1); CREATININE 0.6 MG/DL (0.50-1.00)
--- NOTE | 2017-07-17 16:24 | HHI.IDPN ---
Subjective Subjective Remarks doing good eager to go home Antibiotics ertapenem Allergies: Coded Allergies: No Known Allergies (Unverified Allergy, Unknown, 07/13/17) Objective . Vital Signs Date Time Temp Pulse Resp B/P (MAP) Pulse Ox O2 Delivery O2 Flow Rate FiO2 07/17/17 12:53 98.0 90 20 155/80 (105) 96 07/17/17 12:36 97.5 88 20 160/85 (110) 98 07/17/17 09:15 Nasal Cannula 3.00 07/17/17 08:59 97 Nasal Cannula 3.00 07/17/17 05:14 97 Nasal Cannula 3.00 07/17/17 04:04 97.0 92 20 144/85 (104) 97 07/17/17 00:18 97.7 105 20 144/86 (105) 97 07/16/17 21:55 Nasal Cannula 3.00 07/16/17 21:35 96 Nasal Cannula 3.00 07/16/17 19:51 97.9 93 20 143/88 (106) 94 07/16/17 16:43 97.9 103 20 138/82 (100) 96 07/17/17 07/17/17 07/18/17 15:00 23:00 07:00 Intake Total 423 ml Balance 423 ml IV Total 423 ml # Bowel Movements 2 . Laboratory Tests Test 07/16/17 06:02 07/17/17 07:30 White Blood Count 4.4 TH/MM3 4.8 TH/MM3 Red Blood Count 4.61 MIL/MM3 4.54 MIL/MM3 Hemoglobin 13.4 GM/DL 13.2 GM/DL Hematocrit 42.1 % 41.0 % Mean Corpuscular Volume 91.2 FL 90.4 FL Mean Corpuscular Hemoglobin 29.0 PG 29.0 PG Mean Corpuscular Hemoglobin Concent 31.8 % 32.1 % Red Cell Distribution Width 14.2 % 14.4 % Platelet Count 145 TH/MM3 166 TH/MM3 Mean Platelet Volume 8.8 FL 8.7 FL Laboratory Tests Test 07/16/17 00:19 07/16/17 06:02 07/17/17 07:30 Potassium Level 3.6 MEQ/L 3.2 MEQ/L 3.8 MEQ/L Blood Urea Nitrogen 7 MG/DL 9 MG/DL Creatinine 0.47 MG/DL 0.60 MG/DL Random Glucose 112 MG/DL 93 MG/DL Calcium Level 8.6 MG/DL 8.7 MG/DL Sodium Level 139 MEQ/L 142 MEQ/L Chloride Level 98 MEQ/L 100 MEQ/L Carbon Dioxide Level 36.7 MEQ/L 36.0 MEQ/L Anion Gap 4 MEQ/L 6 MEQ/L Estimat Glomerular Filtration Rate 130 ML/MIN 98 ML/MIN Imaging Last Impressions Shoulder X-Ray 07/13/171310 Signed Impressions: Service Date/Time: Thursday, July 13, 2017 14:27 - CONCLUSION: Degenerative changes AC joint, negative for fracture. Matthew Basilio MD FACR Knee X-Ray 07/13/171310 Signed Impressions: Service Date/Time: Thursday, July 13, 2017 14:36 - CONCLUSION: Status post total knee arthroplasty.. Fracture is not appreciated. There is no joint effusion. Matthew Basilio MD Hip and Pelvis X-Ray 07/13/171310 Signed Impressions: Service Date/Time: Thursday, July 13, 2017 14:32 - CONCLUSION: Negative for fracture. Matthew Basilio MD FACR Head CT 07/13/171310 Signed Impressions: Service Date/Time: Thursday, July 13, 2017 15:58 - CONCLUSION: Moderate sinus disease, negative for acute process. Matthew Basilio MD FACR Chest X-Ray 07/13/171310 Signed Impressions: Service Date/Time: Thursday, July 13, 2017 14:23 - CONCLUSION: 1. Stable granulomatous changes within the right lung. 2. No acute focal pulmonary infiltrate or pulmonary vascular congestion. Jaden Meyer MD Physical Exam CONSTITUTIONAL/GENERAL: This is a thin elderly patient, in no apparent distress. TUBES/LINES/DRAINS: SKIN: No jaundice, rashes, or lesions. Ecchymoses on upper and lower extremities. Skin temperature appropriate. Not diaphoretic. CARDIOVASCULAR: Regular rate and rhythm without murmurs, gallops, or rubs. No JVD. Peripheral pulses symmetric. RESPIRATORY/CHEST: Symmetric, unlabored respirations. Clear to auscultation. Breath sounds diminished bilaterally. No wheezes, rales, or rhonchi. GASTROINTESTINAL: Abdomen soft, non-tender, nondistended. Bowel sounds present. GENITOURINARY: Without palpable bladder distension. MUSCULOSKELETAL: Extremities without clubbing, cyanosis, or edema. NEUROLOGICAL: Awake and alert. Motor and sensory grossly within normal limits. Follows commands. Confused, speech is somewhat incoherent. Moves all extremities. PSYCHIATRIC: calm, pleasant Assessment & Plan Remarks COPD exacerbation UTI ESBL + E.coli S to bactrim Hypoglycemia and low grade fever on presentation ? sepsis - lactic acid wnl Delirium, mental status change : infection vs ETOH withdrawl or combination: resolved repeat UA, C+S monitor clinically - change Ertapnem to PO Bactrim DS bid x 1 week Discussed Condition With Sammi Aragon MD Jul 17, 2017 16:24
--- NOTE | 2017-07-17 16:36 | HHI.PR ---
Subjective Remarks seems less confused and less agitated no sob at rest Objective Vital Signs Date Time Temp Pulse Resp B/P (MAP) Pulse Ox O2 Delivery O2 Flow Rate FiO2 07/17/17 12:53 98.0 90 20 155/80 (105) 96 07/17/17 12:36 97.5 88 20 160/85 (110) 98 07/17/17 09:15 Nasal Cannula 3.00 07/17/17 08:59 97 Nasal Cannula 3.00 07/17/17 05:14 97 Nasal Cannula 3.00 07/17/17 04:04 97.0 92 20 144/85 (104) 97 07/17/17 00:18 97.7 105 20 144/86 (105) 97 07/16/17 21:55 Nasal Cannula 3.00 07/16/17 21:35 96 Nasal Cannula 3.00 07/16/17 19:51 97.9 93 20 143/88 (106) 94 07/16/17 16:43 97.9 103 20 138/82 (100) 96 I/O 07/16/17 07/16/17 07/16/17 07/17/17 07/17/17 07/17/17 07:00 15:00 23:00 07:00 15:00 23:00 Intake Total 541 ml 1000 ml 423 ml Output Total 600 ml 1000 ml Balance -59 ml -1000 ml 1000 ml 423 ml Intake Oral 480 ml IV Total 61 ml 1000 ml 423 ml Output Urine Total 600 ml 1000 ml # Voids 2 # Bowel Movements 1 2 Result Diagram: 07/17/1772907/17/1730 Objective Remarks GENERAL: SKIN: Warm and dry. HEAD: Atraumatic. Normocephalic. EYES: Pupils equal and round. No scleral icterus. No injection or drainage. ENT: No nasal bleeding or discharge. Mucous membranes pink and moist. NECK: Trachea midline. No JVD. CARDIOVASCULAR: Regular rate and rhythm. RESPIRATORY: No accessory muscle use. Clear to auscultation. Breath sounds equal bilaterally. GASTROINTESTINAL: Abdomen soft, non-tender, nondistended. Hepatic and splenic margins not palpable. MUSCULOSKELETAL: Extremities without clubbing, cyanosis, or edema. No obvious deformities. NEUROLOGICAL: Awake and alert. No obvious cranial nerve deficits. Motor grossly within normal limits. Five out of 5 muscle strength in the arms and legs. Normal speech. PSYCHIATRIC: Appropriate mood and affect; insight and judgment normal. Assessment and Plan Assessment and Plan respiratory failure hypoxic and hypercarbic copd exacerbation plan o2 bronchodilator therapy increase activity Matilde Clayton MD Jul 17, 2017 16:36
--- NOTE | 2017-07-17 17:10 | HHI.DS ---
Discharge Summary Admission Date Jul 13, 2017 at 17:04 Discharge Date: Jul 17, 2017 Admitting Diagnosis Hypercapnia/UTI/copd (1) Acute respiratory failure ICD Code: J96.00 - Acute respiratory failure, unspecified whether with hypoxia or hypercapnia (2) Altered consciousness ICD Code: R40.4 - Transient alteration of awareness Status: Acute (3) UTI (urinary tract infection) ICD Code: N39.0 - Urinary tract infection, site not specified Status: Acute Procedures None Brief History - From Admission Written by Chanel Eubanks, acting as scribe for Dr. Mayberry on 07/13/17 at 17:32. This is a 72yo female with a PMHX of HLD, brain aneurysm s/p rupture and subsequent clipping, COPD, MEGHANN, ongoing tobaccoism, anxiety and depression who presents to [facility] the EMS due to increasing confusion, fatigue and recurrent falls at home. Patient reports recurrent falls in the past several days the last one being last night when she fell going to the bathroom and hit her face on the tile floor. Her was unable to get her up and called 911 however patient refused to come to the hospital. This morning, patient continued to have confusion that was recognized by her therapist when he came to the house. He contacted her physician who recommended she come in to the ED. Her states that she has been more confused over the past several days. She denies any recent illness. Denies any fever or chills. Denies any increase in shortness of breath or cough. She denies any chest pain. Denies any hematuria, dysuria or diarrhea. Denies any nausea vomiting or abdominal pain. Patient admits that she has a CPAP machine at home but has not used for the past several months. Patient's been on oxygen at home for the past year at 2-1/2 L. In the ED, ABG was obtained revealing a pH of 7.28 and PCO2 of 74. UA is also indicative of urinary tract infection. CT of the head showed no evidence of acute process. Chest x-ray showed no acute pulmonary process. CBC/BMP: 07/17/17 0730 07/17/17 0730 Significant Findings Laboratory Tests Test 07/15/17 04:31 07/16/17 00:19 07/16/17 06:02 07/17/17 07:30 Platelet Count 147 TH/MM3 (150-450) 145 TH/MM3 (150-450) Random Glucose 117 MG/DL (74-106) 112 MG/DL (74-106) Calcium Level 8.0 MG/DL (8.5-10.1) Potassium Level 2.8 MEQ/L (3.5-5.1) 3.2 MEQ/L (3.5-5.1) Carbon Dioxide Level 36.0 MEQ/L (21.0-32.0) 36.7 MEQ/L (21.0-32.0) 36.0 MEQ/L (21.0-32.0) Mean Corpuscular Hemoglobin Concent 31.8 % (32.0-36.0) Creatinine 0.47 MG/DL (0.50-1.00) Anion Gap 4 MEQ/L (5-15) Imaging Last Impressions Shoulder X-Ray 07/13/171310 Signed Impressions: Service Date/Time: Thursday, July 13, 2017 14:27 - CONCLUSION: Degenerative changes AC joint, negative for fracture. Matthew Basilio MD FACR Knee X-Ray 07/13/171310 Signed Impressions: Service Date/Time: Thursday, July 13, 2017 14:36 - CONCLUSION: Status post total knee arthroplasty.. Fracture is not appreciated. There is no joint effusion. Matthew Basilio MD Hip and Pelvis X-Ray 07/13/171310 Signed Impressions: Service Date/Time: Thursday, July 13, 2017 14:32 - CONCLUSION: Negative for fracture. Matthew Basilio MD FACR Head CT 07/13/171310 Signed Impressions: Service Date/Time: Thursday, July 13, 2017 15:58 - CONCLUSION: Moderate sinus disease, negative for acute process. Matthew Basilio MD FACR Chest X-Ray 07/13/171310 Signed Impressions: Service Date/Time: Thursday, July 13, 2017 14:23 - CONCLUSION: 1. Stable granulomatous changes within the right lung. 2. No acute focal pulmonary infiltrate or pulmonary vascular congestion. Jaden Meyer MD PE at Discharge GENERAL: Pt encountered laying a bed, in NAD CARDIOVASCULAR: Regular rate and rhythm without murmurs, gallops, or rubs. RESPIRATORY: Diffuse scattered rhonchi. No accessory muscle use. GASTROINTESTINAL: Abdomen soft, non-tender, nondistended. MUSCULOSKELETAL: No cyanosis, or edema. BACK: Nontender without obvious deformity. No CVA tenderness. NEURO: AAO 3, pleasant and cooperative, speech clear and fluent. Hospital Course Pt admitted on 07/13/17 with acute respiratory failure,metabolic encephalopathy , possible UTI, and rhabdomyolysis. Pt was seen by pulmonology and infectious disease. She was placed on Invanz for UTI and is being discharged on one week of Bactrim DS. Pt Condition on Discharge: Good Discharge Disposition: Discharge Home Discharge Time: <= 30 minutes Discharge Instructions DIET: Follow Instructions for: As Tolerated, No Restrictions Activities you can perform: Regular-No Restrictions Follow up Referrals: PCP Follow-up - 1 Week Pulmonology - 1 Month Continued Medications: Albuterol 8.5 GM Inh (Proair Hfa 8.5 GM Inh) 90 Mcg/Act Aer 2 PUFF INH Q4-6H PRN for SHORTNESS OF BREATH, #1 INHALER 0 Refills 108 mcg/actuation Atorvastatin (Atorvastatin) 40 Mg Tab 40 MG PO HS for Cholesterol Management, #30 TAB 0 Refills Budesonide-Formoterol Inh (Symbicort Inh) 160-4.5 Mcg/Act Aero 2 PUFF INH Q12HR for copd for 30 Days, INHALER 0 Refills Bupropion HCl ER 24 HR (Wellbutrin Xl 24 HR) 150 Mg Tab 150 MG PO DAILY for Control Depression, TAB 0 Refills Ipratropium-Albuterol Neb (Duoneb) 0.5-2.5 Mg/3 Ml Neb 1 AMPULE NEB Q4HR NEB PRN for SHORTNESS OF BREATH for 30 Days, ML 0 Refills Roflumilast (Daliresp) 500 Mcg Tab 500 MCG PO DAILY for COPD, #30 TAB 0 Refills Sertraline (Sertraline) 100 Mg Tab 200 MG PO DAILY, #30 TAB 0 Refills Tiotropium-Olodaterol Inh (Stiolto Respimat Inh) 2.5-2.5 Mcg/Act Aero 2 PUFF INH DAILY for COPD, #1 INHALER 0 Refills Topiramate (Topamax) 100 Mg Tab 100 MG PO BID for Control Seizures, #60 TAB 0 Refills Discontinued Medications: Levofloxacin (Levaquin) 500 Mg Tablet 500 MG PO DAILY for Infection for 5 Days, #5 TAB 0 Refills Prednisone (Prednisone) 5 Mg Tab 5 MG PO DIRECTED for copd for 10 Days, TAB 0 Refills 40 mg po daily for two days then 30 mg po daily for two days then 20 mg po daily for two days then 10 mg po daily for two days then 5 mg po daily for two days then stop. Ga Raygoza Jr. MIREILLE Jul 17, 2017 17:09
--- NOTE | 2017-07-17 17:16 | HHI.PR ---
Subjective Remarks Follow-up for UTI, confusion, alcohol withdrawals, acute respiratory failure secondary to COPD exacerbation Pt is anxious to go home and is informed waiting on clearance from infectious disease (Dr. Tyson). Pt denied cough, fever, NVD, unusual shortness of breath, chest/abdominal pain. Objective Vitals Vital Signs Date Time Temp Pulse Resp B/P (MAP) Pulse Ox O2 Delivery O2 Flow Rate FiO2 07/17/17 12:53 98.0 90 20 155/80 (105) 96 07/17/17 12:36 97.5 88 20 160/85 (110) 98 07/17/17 09:15 Nasal Cannula 3.00 07/17/17 08:59 97 Nasal Cannula 3.00 07/17/17 05:14 97 Nasal Cannula 3.00 07/17/17 04:04 97.0 92 20 144/85 (104) 97 07/17/17 00:18 97.7 105 20 144/86 (105) 97 07/16/17 21:55 Nasal Cannula 3.00 07/16/17 21:35 96 Nasal Cannula 3.00 07/16/17 19:51 97.9 93 20 143/88 (106) 94 I/O 07/16/17 07/16/17 07/16/17 07/17/17 07/17/17 07/17/17 07:00 15:00 23:00 07:00 15:00 23:00 Intake Total 541 ml 1000 ml 423 ml Output Total 600 ml 1000 ml Balance -59 ml -1000 ml 1000 ml 423 ml Intake Oral 480 ml IV Total 61 ml 1000 ml 423 ml Output Urine Total 600 ml 1000 ml # Voids 2 # Bowel Movements 1 2 Result Diagram: 07/17/1772907/17/17729 Imaging Last Impressions Shoulder X-Ray 07/13/171310 Signed Impressions: Service Date/Time: Thursday, July 13, 2017 14:27 - CONCLUSION: Degenerative changes AC joint, negative for fracture. Matthew Basilio MD FACR Knee X-Ray 07/13/171310 Signed Impressions: Service Date/Time: Thursday, July 13, 2017 14:36 - CONCLUSION: Status post total knee arthroplasty.. Fracture is not appreciated. There is no joint effusion. Matthew Basilio MD Hip and Pelvis X-Ray 07/13/171310 Signed Impressions: Service Date/Time: Thursday, July 13, 2017 14:32 - CONCLUSION: Negative for fracture. Matthew Basilio MD FACR Head CT 07/13/171310 Signed Impressions: Service Date/Time: Thursday, July 13, 2017 15:58 - CONCLUSION: Moderate sinus disease, negative for acute process. Matthew Basilio MD FACR Chest X-Ray 07/13/171310 Signed Impressions: Service Date/Time: Thursday, July 13, 2017 14:23 - CONCLUSION: 1. Stable granulomatous changes within the right lung. 2. No acute focal pulmonary infiltrate or pulmonary vascular congestion. Jaden Meyer MD Objective Remarks GENERAL: Pt encountered laying a bed, in NAD CARDIOVASCULAR: Regular rate and rhythm without murmurs, gallops, or rubs. RESPIRATORY: Diffuse scattered rhonchi. No accessory muscle use. GASTROINTESTINAL: Abdomen soft, non-tender, nondistended. MUSCULOSKELETAL: No cyanosis, or edema. BACK: Nontender without obvious deformity. No CVA tenderness. NEURO: AAO 3, pleasant and cooperative, speech clear and fluent. Medications and IVs Current Medications Medications (Trade) Dose Ordered Sig/Fern Route Start Time Stop Time Status Last Admin (NS Flush) 2 ml UNSCH PRN IV FLUSH 07/13/17 17:15 (NS Flush) 2 ml BID IV FLUSH 07/13/17 21:00 07/16/17 08:20 (Narcan Inj) 0.4 mg UNSCH PRN IV PUSH 07/13/17 17:15 (Duoneb Neb) 1 ampule Q6HR NEB NEB 07/13/17 22:00 07/17/17 13:45 (Duoneb Neb) 1 ampule Q2HR NEB PRN NEB 07/13/17 17:15 (Lovenox Inj) 40 mg Q24H SQ 07/13/17 19:00 07/16/17 17:21 (D50w (Vial) Inj) 50 ml UNSCH PRN IV PUSH 07/14/17 08:45 (Glucagon Inj) 1 mg STAT PRN IM 07/14/17 08:45 Dextrose/Lactated Ringer's 1,000 ml @ 50 mls/hr Q20H IV 07/14/17 18:15 07/16/17 23:35 (Folate) 1 mg DAILY PO 07/16/17 09:00 07/21/17 08:59 07/17/17 09:12 (Vitamin B1) 100 mg DAILY PO 07/16/17 09:00 07/17/17 09:12 (Theragran M Tab) 1 tab DAILY PO 07/16/17 09:00 07/21/17 08:59 07/17/17 09:12 (Romazicon Inj) 0.2 mg Q1M PRN IV PUSH 07/15/17 10:45 (Ativan) 1 mg Q4H PRN PO 07/15/17 10:45 07/16/17 08:20 (Ativan Inj) 1 mg Q4H PRN IV PUSH 07/15/17 10:45 (Ativan) 2 mg Q2H PRN PO 07/15/17 10:45 (Ativan Inj) 2 mg Q2H PRN IV PUSH 07/15/17 10:45 07/15/17 17:06 (Ativan Inj) 2 mg Q1H PRN IV PUSH 07/15/17 10:45 (Ativan Inj) 2 mg Q15M PRN IV PUSH 07/15/17 10:45 (Haldol Inj) 2 mg Q15M PRN IM 07/15/17 10:45 07/15/17 17:32 Ertapenem 1000 mg/ Sodium Chloride 100 ml @ 200 mls/hr Q24H IV 07/16/17 09:00 07/17/17 09:13 Urinary Catheter: No A/P Assessment and Plan 72yo female with a PMHX of HLD, brain aneurysm s/p rupture and subsequent clipping, COPD, MEGHANN, ongoing tobaccoism, anxiety and depression who presents to [facility] the EMS due to increasing confusion, fatigue and recurrent falls at home. UTI: Awaiting clearance from ID for discharge. No fever/dysuria.Will be discharged on Bactrim DS BID. COPD: Stable. Continue home regimen. Metabolic encephalopathy: resolved. Acute hypercapnic respiratory failure Acute on chronic COPD exacerbation with ongoing tobacco use Oxygen-dependent COPD MEGHANN, CPAP noncompliant - [employer] following appreciate recommendations. - Chest x-ray showed no acute pulmonary process - Advised on importance of smoking cessation - supplemental oxygen to keep O2 sats above 92% - Bipap at night - Chikis scheduled - continue home bronchodilator therapy -Patient has advanced disease poor prognosis. Metabolic encephalopathy, confusion CO2 narcosis Recurrent falls - suspect due to combination of hypoxia , CO2 retention, and UTI. Also may be due to alcoholic withdrawals. - CT of the brain showed no acute intracranial process - Avoid all sedating medications - PT/OT eval/tx - fall precautions -Confusion resolved. UTI ESBL positive -Status post Rocephin. Patients on Invanz. Infectious disease consulted. -Continue with Invanz per infectious disease. When patient is discharged repeat transitioned to oral Bactrim. Rhabdomyolysis - IV fluid - Monitor CK trend Seizure disorder/dyslipidemia/depression/anxiety - Continue home regimen. Alcohol abuse -On CIWA protocol. Hypokalemia -Replenish as needed. DVT prophylaxis - Lovenox sq - Bilateral SCDs/MI hose Deconditioned -Consult PT. Discussed with Pt, kala (at bedside), RN, and Drs. Tyson and Jose. Discharge Planning Pt to be discharged today. Ga Raygoza Jr. [place] Jul 17, 2017 17:16
--- NOTE | 2017-07-17 17:19 | HHI.DCPOC ---
Discharge Care Plan Diagnosis: (1) UTI (urinary tract infection) (2) Altered consciousness Goals to Promote Your Health * To prevent worsening of your condition and complications * To maintain your health at the optimal level Directions to Meet Your Goals Take your medications as prescribed Follow your dietary instruction Follow activity as directed Keep your appointments as scheduled Take your immunizations and boosters as scheduled If your symptoms worsen call your PCP, if no PCP go to Urgent Care Center or Emergency Room Smoking is Dangerous to Your Health. Avoid second hand smoke Call the 24-hour hour crisis hotline for domestic abuse at Ga Raygoza Jr. [place] Jul 17, 2017 17:18
--- NOTE | 2017-07-17 17:19 | HHI.DCPOC ---
Discharge Care Plan Diagnosis: (1) UTI (urinary tract infection) (2) Altered consciousness Goals to Promote Your Health * To prevent worsening of your condition and complications * To maintain your health at the optimal level Directions to Meet Your Goals Take your medications as prescribed Follow your dietary instruction Follow activity as directed Keep your appointments as scheduled Take your immunizations and boosters as scheduled If your symptoms worsen call your PCP, if no PCP go to Urgent Care Center or Emergency Room Smoking is Dangerous to Your Health. Avoid second hand smoke Call the 24-hour hour crisis hotline for domestic abuse at Ga Raygoza Jr. [place] Jul 17, 2017 17:18
--- NOTE | 2017-07-17 17:19 | HHI.DCPOC ---
Discharge Care Plan Diagnosis: (1) UTI (urinary tract infection) (2) Altered consciousness Goals to Promote Your Health * To prevent worsening of your condition and complications * To maintain your health at the optimal level Directions to Meet Your Goals Take your medications as prescribed Follow your dietary instruction Follow activity as directed Keep your appointments as scheduled Take your immunizations and boosters as scheduled If your symptoms worsen call your PCP, if no PCP go to Urgent Care Center or Emergency Room Smoking is Dangerous to Your Health. Avoid second hand smoke Call the 24-hour hour crisis hotline for domestic abuse at Ga Raygoza Jr. [place] Jul 17, 2017 17:18
[2017-07-17] MEDS ORDERED: BACT800T5 PO (17:54)
== END 2017-07-17 18:17 | disposition home or self-care (01) | DRG 189 ==
LOC: NEPE 13:00 → NEDA 17:04 → HIME 21:50 → N05B 07-16 13:53
PROVIDERS: ADMIT Family Medicine; ATTEND Family Medicine
PROC: 5A09357 Assistance with Respiratory Ventilation, Less than 24 Consecutive Hours, Continuous Positive Airway Pressure (ICD-10-PCS; principal; 2017-07-13)
DX: J96.22 Acute and chronic respiratory failure with hypercapnia (principal); G93.41 Metabolic encephalopathy; M62.82 Rhabdomyolysis; J44.1 Chronic obstructive pulmonary disease with (acute) exacerbation; N39.0 Urinary tract infection, site not specified; B96.20 Unspecified Escherichia coli [E. coli] as the cause of diseases classified elsewhere; Z16.12 Extended spectrum beta lactamase (ESBL) resistance; Z99.81 Dependence on supplemental oxygen; F17.210 Nicotine dependence, cigarettes, uncomplicated; Z91.19 Patient's noncompliance with other medical treatment and regimen; G47.33 Obstructive sleep apnea (adult) (pediatric); R29.6 Repeated falls; F32.9 Major depressive disorder, single episode, unspecified; E78.5 Hyperlipidemia, unspecified; F41.9 Anxiety disorder, unspecified; I10 Essential (primary) hypertension; Z79.52 Long term (current) use of systemic steroids; G40.909 Epilepsy, unspecified, not intractable, without status epilepticus; E16.2 Hypoglycemia, unspecified; E87.6 Hypokalemia; F10.10 Alcohol abuse, uncomplicated; Z96.659 Presence of unspecified artificial knee joint
CPT/HCPCS: 36600; 70450; 71010; 73030; 73502; 73564; 76937; 80048; 80053; 81001; 82550; 82552; 82805; 82947; 82948; 83605; 83735; 83880; 84100; 84132; 84484; 85025; 85027; 85610; 85730; 87040; 87077; 87086; 87186; 87641; 93005; 94002; 94003; 94640; 94664; 96365; J0696; J1335; J1630; J1650; J2060; J3480; J7121